=== PATIENT | male | born 1970 | race Caucasian/White ===

== ENCOUNTER → 2019-04-21 | Outpatient (CLI) | payer OTHER, SELFPAY ==
[2015-09-10 12:41] VITALS: BMI 29.9
[2019-04-21 10:50] LABS: Absolute Lymphocyte Count 1.79 X10^3/ul (0.83-4.51); Absolute Neutrophil Count 3.3 X10^3/uL (2.0-7.7); Basophil# 0.05 X10^3/uL; Basophil% 0.8 % (0-1); Eosinophils% 6.7 % (0-5); Hematocrit 43.8 % (40-54); Lymphocyte # 1.79 X10^3/ul (4.0); Mean Corp Hgb Conc 34.2 g/gl (32-36); Mean Corpuscular Hgb 29.1 pg (27.0-32.0); Mean Platelet Vol. 11.7 fl (6.2-12.0); Monocyte# 0.44 X10^3/uL; Monocyte% 7.4 % (0-10); Neutrophil # 3.27 X10^3/uL (2.7-7.7); Neutrophil % 54.9 % (47-70); Platelet Count 239 K/mm3 (150-450); RBC Distribution Width CV 13.5 % (11.6-14.6); RBC Distribution Width SD 41.7 fl (35.1-43.9); Red Blood Count 5.15 M/mm3 (4.6-6.2)
[2019-04-21 11:00] LABS: POSITIVE COUNT NO; POSITIVE DIFFERENTIAL NO; POSITIVE MORPHOLOGY NO
[2019-04-21 11:20] LABS: Hemoglobin A1c 6.7 % (4.2-6.3)
[2019-04-21 11:28] LABS: AST(SGOT) 29 U/L (15-37); Alanine Aminotransfer ALT/SGPT 32 U/L (16-61); Albumin, Serum 3.4 g/dL (3.2-5.0); Alkaline Phosphatase 83 U/L (45-117); Anion Gap 9 (5-15); BUN 17 mg/dL (7-18); Calcium,Total 8.8 mg/dL (8.5-10.1); Chloride 103 mmol/L (98-107); Cholesterol 163 mg/dL (200); Creatinine, Serum 0.95 mg/dL (0.70-1.30); EST Glomerular Filtration Rate 90 mL/min (>60); Est Glom Filt Rate - Afr Amer 109 mL/min (>60); Globulin 3.5 g/dL (2.2-4.2); Glucose 148 mg/dL (74-106); High Density Lipoprotein 47 mg/dL; Potassium 4.4 mmol/L (3.5-5.1); Protein, Total 6.9 g/dL (6.4-8.2); Sodium Level 140 mmol/L (136-145); Thyroid Stim Hormone (TSH) 3.04 uIU/mL (0.358-3.74); Triglycerides 58 mg/dL; Very Low Density Lipoprotein 12 mg/dL (5-40)
[2019-04-21 12:34] LABS: Microalbumin,Random Urine 9.3 mg/L (NO RANGE EST.)
== END | disposition home or self-care (01) ==
LOC: MFPLAB 08:55
PROVIDERS: Family Provider Family Medicine; PCP Family Medicine; Visit Provider Internal Medicine Endocrinology, Diabetes & Metabolism
DX: E10.65 Type 1 diabetes mellitus with hyperglycemia (principal)
CPT/HCPCS: 36415; 80053; 80061; 82043; 82570; 83036; 84443; 85025

== ENCOUNTER → 2019-09-01 11:35 | Outpatient (CLI) | payer OTHER, SELFPAY ==
[2015-09-10 12:41] VITALS: BMI 29.9
[2019-09-01 14:09] LABS: ALB/GLOB Ratio 1.2 RATIO (0.9-2.4); AST(SGOT) 42 U/L (15-37); Alanine Aminotransfer ALT/SGPT 47 U/L (16-61); Alkaline Phosphatase 89 U/L (45-117); Anion Gap 3 (5-15); BUN 21 mg/dL (7-18); Calcium,Total 9.3 mg/dL (8.5-10.1); Chloride 105 mmol/L (98-107); Cholesterol 154 mg/dL (200); Creatinine, Serum 0.95 mg/dL (0.70-1.30); EST Glomerular Filtration Rate 89 mL/min (>60); Est Glom Filt Rate - Afr Amer 108 mL/min (>60); Globulin 3.3 g/dL (2.2-4.2); Glucose 44 mg/dL (74-106); High Density Lipoprotein 57 mg/dL; Potassium 3.9 mmol/L (3.5-5.1); Protein, Total 7.3 g/dL (6.4-8.2); Sodium Level 139 mmol/L (136-145); Triglycerides 37 mg/dL; Very Low Density Lipoprotein 7 mg/dL (5-40)
== END ==
PROVIDERS: Family Provider Family Medicine; PCP Family Medicine; Referring Provider Internal Medicine Endocrinology, Diabetes & Metabolism; Visit Provider Internal Medicine Endocrinology, Diabetes & Metabolism
DX: E10.43 Type 1 diabetes mellitus with diabetic autonomic (poly)neuropathy (principal)
CPT/HCPCS: 36415; 80053; 80061; 83036

== ENCOUNTER → 2019-09-24 06:29 | Outpatient (CLI) | payer OTHER, SELFPAY ==
[2015-09-10 12:41] VITALS: BMI 29.9
--- NOTE | 2019-09-24 15:58 | NEURO ---
NCS and/or EMG Patient Report Ordering Doctor: Nazia Waters DATE OF SERVICE: 09/24/19 Reyes Zuñiga is a 49-year-old male presents for electrodiagnostic testing of the right upper limb. Reports numbness and tingling in the right hand. Next Electrodiagnostic findings: Right median motor nerve demonstrates normal distal latency, amplitude with borderline reduced conduction velocity. Normal right ulnar motor response. Borderline prolonged right median F-wave. Prolonged right median sensory latency at the wrist. Needle EMG, all muscles tested in the right upper limb showed no evidence of denervation with normal motor unit action potentials. Electrodiagnostic impression: This is an abnormal study in the right upper limb. 1. Electrodiagnostic findings demonstrate right-sided median mononeuropathy. This is consistent with a mild right carpal tunnel syndrome. If there are any further questions, please not hesitate contact me
== END ==
PROVIDERS: Family Provider Family Medicine; PCP Family Medicine; Referring Provider Nurse Practitioner Adult Health; Visit Provider Nurse Practitioner Adult Health
DX: R20.0 Anesthesia of skin (principal)
CPT/HCPCS: 95886; 95910

== ENCOUNTER → 2020-01-29 09:53 | Outpatient (CLI) | payer OTHER, SELFPAY ==
--- NOTE | 2020-01-29 09:55 | RAD_ITS ---
STUDY: X-RAY - RIGHT WRIST REASON FOR EXAM: Right wrist pain extending into forearm, finger tingling, no specific injury. TECHNIQUE: 3 view(s) of the wrist were obtained. COMPARISON: None. FINDINGS: Normal visualized distal radius and ulna. Normal radiocarpal articulation. Normal distal radioulnar articulation. Normal carpal bones. Normal carpal articulations. Normal carpometacarpal articulation of the thumb. Normal second through fifth carpometacarpal articulations. Normal visualized metacarpal bones. There is vascular calcification. RAD/Wrist min 3 Views IMPRESSION: Vascular calcification. Otherwise, unremarkable x-ray examination of the right wrist. Electronically Signed: Nathan Quiroz MD at 10:26 EDT Tel , Service support ,
== END ==
PROVIDERS: PCP Family Medicine; Referring Provider Orthopaedic Surgery; Visit Provider Orthopaedic Surgery
DX: M25.531 Pain in right wrist (principal)
CPT/HCPCS: 73110

== ENCOUNTER 2020-02-11 11:00 | Outpatient (RCR) | payer OTHER, SELFPAY ==
[2020-01-29 10:16] VITALS: BMI 29.9
--- NOTE | 2020-01-29 11:24 | HP.OTEVAL ---
Patient's Visit Information SHANE PALMER is a 49 year old M, referred to Occupational Therapy by Dr. Sabi Hays DO, with a diagnosis of BCTS. Date of Evaluation: 01/29/20 Occupational Therapist: Latanya Dodge, MANISHAR/Berkley, CHT - Subjective Subjective: This 49 year old male was seen for OT eval with dx of bilateral CTS. Pt states he noticed symptoms in Jul/Sep 2019. Pt did have nuropathy test due to DM, it was neg. and they recommened Ortho consult for CTS. pt states he works at [employer] and needs to lift 50-70# pt states he states he can feel a weakness in his right arm. pt had wrist cock up brace and was instructed to wear brace at night. - Pain right hand 2 Pain Intensity Range: 0, 4 - ROM Wrist: right 55/60 left 70/65 - Strength Human Performance Professor: right 90# left 85# Lateral Pinch: right 16# left 20# Tripod Pinch: right 18# left 18# - Sensation Thumb: right 2.83 left 2.83 Index: right 2.83 left 2.83 Middle: right 2.83 left 2.83 Ring: right 2.83 left 2.83 Little: right 2.83 left 2.83 - Quick DASH-Disab of Arm,Shoulder& Hand Quick DASH Score: 10.0000 - Carpal Tunnel Syndrome Total Score of Symptom & Functional Sections: 13 - Goals Goal:: pt will report pain no greater than 1/10 with use of right UE with ADLs and work tasks by d/c Goal:: Pt will demo understanding of work/lifting and carry ergonomics to decrease stress on tendons to increase pts independent with ADLs, IADLS and work tasks by d/c. Goal:: pt will report a decrease in ting/numb throughout med. nerve distribution to less than 3 times in a week by d/c. Goal:: pt will demo understanding of CTS and median nerve glides to decrease CTS by d/c - Rehabilitation General Assessment: pt demo with positive CTS and pain through 1st dorsal region of right wrist. Pt would benefit from skilled OT services 1x week for 4 weeks to decrease pts pain, ed. on median N. glides and lift ergo to decrease stress on median nerve and tendons. Today therapist ed. pt on median nerve glides, ice and to lift keeping wrist in nutral postion vs ulnar deviation. pt demo understanding and agree to POC. Rehabilitation Potential: Good - Anticipated Interventions Anticipated Interventions: Strengthening, Triggerpoint Release, Modalities, Joint Protection/Energy Conservation, Ergonomic Education, Home Program - Visit Plan Frequency: 1x/Week Duration: 4 Weeks TEXT: Thank you for the opportunity to evaluate your patient. For Medicare and Medicare HMO plans, please review the plan of care and approve it. It will need to be FAXED BACK to us at [phone] for Medicare purposes. Please let me know if there are questions or concerns regarding this plan of care. Physician Signature: Date:
--- NOTE | 2020-04-27 11:21 | HP.OTDCNRP_ITS ---
SHANE PALMER was seen in my office for initial evaluation on 01/29/20. The following Plan of Care was established for this patient: Initial Frequency: 1x/Week Initial Duration: 4 Weeks Plan: cont POC Anticipated Interventions: Strengthening, Triggerpoint Release, Modalities, Rosa int Protection/Energy Conservation, Ergonomic Education, Home Program This patient was last seen in our office 02/11/20. Pertinent comments regarding their Occupational therapy will appear below: pt seen for 2 OT visits- pt did not schedule further apts and is D/C At this point I will be discontinuing this patient from occupational therapy. I would be happy to see this patient again in the future if found appropriate by the physician. Thank you! Latanya Dodge, OTR/L, CHT
== END 2020-02-11 19:00 | disposition home or self-care (01) ==
LOC: OT 11:00
PROVIDERS: PCP Family Medicine; Referring Provider Orthopaedic Surgery; Visit Provider Orthopaedic Surgery
DX: G56.03 Carpal tunnel syndrome, bilateral upper limbs (principal)
CPT/HCPCS: 97035; 97166; 97530

== ENCOUNTER 2020-04-12 18:23 | Emergency (ER) | payer OTHER, SELFPAY ==
[2020-01-29 10:16] VITALS: BMI 29.9
--- NOTE | 2020-04-12 18:40 | ED.RN ---
pt arrived to ed with concerns for hypoglycemia. hx of type 1 diabetes. pt had an insulin pump with blood glucose sensor. during triage pt notice and upwards trend in his blood glucose level. at this time patient decided to not seek treatment and expressed comfort with controlling his glucose level on his own at home. pt was informed that we would be gland to give him peace of mind by staying for evaluation, but decline. he ambulated from department with no difficulty. pt was drinking a soda during his time in ed. pt stated he was walking to his parent's house to wait for his to pick him up. no s/s of distress. pt alert and oriented x4 and demonstrated appropriate decision making abilities. balance and gait appropriate. michelle toledo rn [phone]
[2020-04-12 18:49] VITALS: TEMP 37; BMI 20.4
== END 2020-04-12 18:53 | disposition home or self-care (01) ==
LOC: ED 18:40
PROVIDERS: Emergency Provider Emergency Medicine; PCP Family Medicine
DX: Z53.21 Procedure and treatment not carried out due to patient leaving prior to being seen by health care provider (principal)

== ENCOUNTER 2020-04-29 18:02 | Emergency (ER) | payer OTHER, SELFPAY ==
[2020-04-29 18:07] VITALS: BP 146/82; PULSE 66; RESP 16; TEMP 36.9; O2SAT 98; BMI 27.4
--- NOTE | 2020-04-29 18:23 | ED.VIS.GEN ---
History of Present Illness Chief Complaint: Hypoglycemia Detail of Chief Complaint: Altered mental status and concern for allergic reaction Informant: Patient, Significant Other Onset: Today, Hours Context: Sudden Onset Timing: Intermittent Quality: Blood sugar less than 40 Location: Residence Current Severity: - Maximum Severity: Severe Worsened by: Increased activity with poor p.o. consider intake Relieved by: Trinity, milk, glucose stat x2 Associated Symptoms: Unresponsiveness with gurgling Narrative: Patient is a type I diabetic with insulin pump. He has been working outside. He was cleaning the garage. He collapsed. Insulin pump red blood sugar less than 40. was concerned for allergic reaction because he was gurgling. There was no hives. There was no swelling of his lips or tongue. He admits to not eating well. He tried to snack. He did not want to stop what he was doing. Prior similar symptoms: Yes Recent Illness/Hospitalization: No - Past Medical History (1) Type 1 diabetes mellitus Status: Acute Past Medical History - Allergies and Home Meds Allergies/Adverse Reactions: Allergies nut - unspecified [nut] Allergy (Verified 04/29/20 18:05) Anaphylaxis promethazine HCl [From Phenergan] Adverse Reaction (Verified 04/29/20 18:05) Other Primary Care Physician: Yessi Cuevas MD [Primary Care Provider] - Prior records reviewed: Yes Surgical History: noncontributory Lives: Spouse/ Significant Other Smoking Status: Never smoker Alcohol: None Drugs: None Review of Systems General: Denies: Fever, Malaise Eyes: Denies: Visual changes - bilaterally, Blurred Vision - bilaterally Cardiovascular: Denies: Chest pain, Palpitations Respiratory: Denies: Dyspnea, Cough Gastrointestinal: Denies: Nausea, Vomiting Musculoskeletal: Denies: Myalgias, Arthralgias, Neck pain, Back pain, Swelling, Extremity Pain, -, - Neurological: Denies: Headache, Weakness, Parasthesia Endocrine: Denies: Polyuria, Polydipsia Hematologic: Denies: Easy bruising, Easy bleeding Allergy: Denies: Uticaria, Swelling of the mouth Physical Exam Vital Signs/Narrative: Vital Signs Temp Pulse Resp BP Pulse Ox 04/29/20 18:07 98.5 F 66 16 146/82 H 98 Inital Vital Signs reviewed: Yes General: Well nourished, Well developed Head: Normocephalic, Atraumatic Eyes: Perrl, EOMI. Negative for: Pale conjunctiva, Scleral icterus ENT: Moist mucous membranes, No rhinorrhea Neck: Supple, Nontender, No lymphadenopathy, No JVD Cardiovascular: Regular rate, Regular rhythm, No murmurs, Normal S1, Normal S2 Respiratory: No distress, CTA bilaterally Abdomen: Soft, Nontender Extremities: Nontender, No edema Skin: Normal color, No rash, No Trauma Neurological: Alert, Oriented x3, Cranial nerves II-XII grossly intact, Normal Strength, Normal Sensation Psychological: Normal affect Diagnostic/Tx/Re-eval - Medical Decision Making Patient's altered mental status was due to hypoglycemia due to poor p.o. intake. He has been fed. He ate a sandwich, 2 pieces of string cheese, container of milk and 2 glucose that tubes. Will reassess in 30 minutes. Patient was reassessed at 1855. He is alert oriented. Blood sugar is above 90. Plan is to discharge to home with appropriate home-going instructions. ED Disposition - Plan for ED Patient: Disposition: Home or Assisted Living Diagnosis: Hypoglycemia due to type 1 diabetes mellitus Instructions: ED HYPOGLYCEMIA Insulin Rxn Referrals: Yessi Cuevas MD [Primary Care Provider] - As Needed
[2020-04-29 19:04] VITALS: BP 124/80; PULSE 88; RESP 16; O2SAT 98
== END 2020-04-29 19:06 | disposition home or self-care (01) ==
PROVIDERS: Emergency Provider Emergency Medicine; PCP Family Medicine
DX: E10.649 Type 1 diabetes mellitus with hypoglycemia without coma (principal); Z79.4 Long term (current) use of insulin; Z96.41 Presence of insulin pump (external) (internal)
CPT/HCPCS: 99284

== ENCOUNTER → 2020-06-28 10:39 | Outpatient (CLI) | payer OTHER, SELFPAY | PROVIDERS: PCP Family Medicine; Visit Provider Family Medicine | DX: Z00.00 Encounter for general adult medical examination without abnormal findings (principal) ==

== ENCOUNTER → 2020-07-05 10:34 | Outpatient (CLI) | payer OTHER, SELFPAY ==
[2020-07-05 12:21] LABS: Absolute Lymphocyte Count 2.17 X10^3/uL (0.83-4.51); Absolute Neutrophil Count 3.3 X10^3/uL (2.0-7.7); Basophil# 0.07 X10^3/uL; Eosinophil# 0.69 X10^3/uL; Eosinophils% 10.2 % (0-5); Hematocrit 45.8 % (40-54); Hemoglobin 15.3 g/dL (13.0-16.5); Lymphocyte # 2.17 X10^3/ul (4.0); Lymphocyte % 32.2 % (19-41); Mean Corp Hgb Conc 33.4 g/dL (32-36); Mean Corpuscular Volume 89.8 fL (80-94); Mean Platelet Vol. 11.5 fl (6.2-12.0); Monocyte# 0.47 X10^3/uL; NRBC Flagged by Analyzer 0 % (0-5); Neutrophil # 3.31 X10^3/uL (2.7-7.7); Neutrophil % 49.2 % (47-70); Platelet Count 224 K/mm3 (150-450); RBC Distribution Width CV 13.1 % (11.6-14.6); RBC Distribution Width SD 43.1 fl (35.1-43.9); White Blood Count 6.7 K/mm3 (4.4-11.0)
[2020-07-05 12:44] LABS: AST(SGOT) 29 U/L (15-37); Alanine Aminotransfer ALT/SGPT 39 U/L (16-61); Albumin, Serum 3.4 g/dL (3.2-5.0); Alkaline Phosphatase 83 U/L (45-117); Anion Gap 2 (5-15); BUN 16 mg/dL (7-18); Calcium,Total 8.7 mg/dL (8.5-10.1); Chloride 105 mmol/L (98-107); Cholesterol 181 mg/dL (200); EST Glomerular Filtration Rate 84 mL/min (>60); Est Glom Filt Rate - Afr Amer 102 mL/min (>60); Globulin 3.4 g/dL (2.2-4.2); Glucose 105 mg/dL (74-106); High Density Lipoprotein 55 mg/dL; Potassium 4.4 mmol/L (3.5-5.1); Protein, Total 6.8 g/dL (6.4-8.2); Sodium Level 140 mmol/L (136-145); T4 Free Direct 1.14 ng/dL (0.76-1.46); Thyroid Stim Hormone (TSH) 6.54 uIU/mL (0.358-3.74); Triglycerides 52 mg/dL; Very Low Density Lipoprotein 10 mg/dL (5-40)
[2020-07-05 12:47] LABS: Hemoglobin A1c 6.8 % (3.8-5.6)
[2020-07-05 13:03] LABS: Microalbumin,Random Urine < 5.0 mg/L (NO RANGE EST.)
== END ==
PROVIDERS: PCP Family Medicine; Referring Provider Family Medicine
DX: E10.43 Type 1 diabetes mellitus with diabetic autonomic (poly)neuropathy (principal)
CPT/HCPCS: 36415; 80053; 80061; 82043; 82570; 83036; 84439; 84443; 85025

== ENCOUNTER → 2020-10-07 15:52 | Outpatient (CLI) | payer OTHER, SELFPAY | PROVIDERS: PCP Family Medicine; Visit Provider Family Medicine | DX: U07.1 COVID-19 (principal) | CPT/HCPCS: 87635; U0003 ==

== ENCOUNTER → 2020-11-02 11:17 | Outpatient (CLI) | payer OTHER, SELFPAY ==
[2020-11-02 15:45] LABS: Hemoglobin A1c 6.4 % (3.8-5.6)
[2020-11-02 15:52] LABS: ALB/GLOB Ratio 1.1 RATIO (0.9-2.4); AST(SGOT) 27 U/L (15-37); Alanine Aminotransfer ALT/SGPT 36 U/L (16-61); Albumin, Serum 3.7 g/dL (3.2-5.0); Alkaline Phosphatase 82 U/L (45-117); Anion Gap 7 (5-15); BUN 18 mg/dL (7-18); BUN/Creat Ratio 18.8 RATIO (10-20); Chloride 106 mmol/L (98-107); Cholesterol 121 mg/dL (200); Creatinine, Serum 0.96 mg/dL (0.70-1.30); EST Glomerular Filtration Rate 89 mL/min (>60); Est Glom Filt Rate - Afr Amer 107 mL/min (>60); Globulin 3.5 g/dL (2.2-4.2); Glucose 74 mg/dL (74-106); High Density Lipoprotein 52 mg/dL; Potassium 3.8 mmol/L (3.5-5.1); Protein, Total 7.2 g/dL (6.4-8.2); Sodium Level 142 mmol/L (136-145); T4 Free Direct 1.38 ng/dL (0.76-1.46); Thyroid Stim Hormone (TSH) 4.11 uIU/mL (0.358-3.74); Triglycerides 51 mg/dL; Very Low Density Lipoprotein 10 mg/dL (5-40)
== END ==
PROVIDERS: PCP Family Medicine; Referring Provider Internal Medicine Endocrinology, Diabetes & Metabolism; Visit Provider Internal Medicine Endocrinology, Diabetes & Metabolism
DX: E10.43 Type 1 diabetes mellitus with diabetic autonomic (poly)neuropathy (principal)
CPT/HCPCS: 36415; 80053; 80061; 83036; 84439; 84443

== ENCOUNTER 2021-01-19 10:00 | Outpatient (RCR) | payer OTHER, SELFPAY ==
--- NOTE | 2020-12-20 13:33 | HP.PTEVAL ---
Patient's Visit Information SHANE PALMER is a 50 year old M referred to Physical Therapy by Dr. Yessi Cuevas MD with a diagnosis of left shoulder pain. Date of Evaluation: 12/20/20 Physical Therapist: Daniela Casillas DPT - Visit Plan Frequency: 2x /Week Duration: 4 Weeks Plan: Focus on posture and scapular s/s. IE: HEP: scapualr retractions, posture, standing pect stretch, mid-row with GTB, bilateral ER with GTB - Subjective Type 1 diabetic- 5-7ys ago. was atheltic (volleyball,softball)- R shoulder is always gettting use but once stopped got frozen shoulder in R shoudler and came here for rehab. September had covid- laying in bed trying to get off had pain back on L shoulder- thought it was ache from covid. as gone as has gotten worse- last 2 weeks worse- reach back with work. pain: right now dont feel it in back of arm (triceps and shoulder joint), shoudler 1/10, burning, does not radiate, no numbness or tingling. better: nothing. worse: reach back, lean on it 4/10. sleep: no problem. 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 R handed - Objective Posture: FH, RS, able to correct with cues but unble to maintain. Palpation: no c/o pain. ROM: Cervical: WFL in all planes- Shoulder: pain flexion, abduction, ER but all WFL elbow/wrist: all planes WFL. strength: elbow flex/ext: 4+/5 shoulder: L flex/ext/abd/ER/IR: 4/5 R flex/ext/abd/ER/IR 4+/5 scap: fair minus. special tests: lanieer +, kaleigh elliott +. pt education for thumb up functional mobility tasks in order to promote proper body mechanics through shoulder joint. - Goals Goal 1:: Patient will perform I HEP and progression Goal Time Frame: 2-4 Weeks Goal 2:: Patient will maintain proper posture for an entire treatment session in order to improve body mechcanics and demo increased scap s/s. Goal Time Frame: 2-4 Weeks Goal 3:: Patient will report decrease in pain to 0/10 for 1 week in order to perform functional mobility tasks Goal Time Frame: 4-6 Weeks - Rehabilitation Potential Physical Therapy Diagnosis: Pt presents with decrease strength, flexibilty, and pain free ROM impacting abiltiy to perform functional mobiltiy tasks. Rehabilitation Potential: Good - Anticipated Interventions Patient/Client Instruction: Educate patient on: Plan of Care For the Purpose of:: To improve muscle performance and motor function Therapeutic Exercise to Include: Strength training, Power training, Endurance training, Coordination, Body mechanics, Postural training, Flexibilty training, Scapular Strength/Stabilization For the Purpose of:: To improve performance and independence with ADL's Cryotherapy (ice pack, ice massage): Yes Thermo therapy (hot pack): Yes Thank you for the opportunity to evaluate your patient. For Medicare and Medicare HMO plans, please review the plan of care and approve it. It will need to be FAXED BACK to us at [phone] for Medicare purposes. For Medicare only, by signing this I certify the plan of care. Please let me know if there are questions or concerns regarding this plan of care. Physician Signature: Date:
--- NOTE | 2021-01-19 10:48 | HP.PTDCSUM ---
It has been my pleasure to treat SHANE PALMER referred by Dr. Yessi Cuevas MD, with the diagnosis of left shoulder pain for a total of 8 visit(s). Discharge Date: Please see the following information for a summary of their discharge status. Subjective: Pt reports that he is doing not too bad. Pt reports that shoulder isnt stopping him from doing anything anymore but will feel it sometimes. Pt can feel twing if he has to put self in position but does not have to very often. abd/ext rapidly can cause some twing. Pt reports not pain down arm and only in shoulder % Improvement: 80 Objective/Function: Posture: FH, RS, able to correct with cues but unble to maintain. Palpation: no c/o pain. ROM: Cervical: WFL in all planes- Shoulder: no pain flexion, abduction, ER but all WFL. functinal IR: mid back,elbow/wrist: all planes WFL. strength: elbow flex/ext: 5/5 shoulder: L flex/ext/abd/ER/IR: 4+/5 R flex/ext/abd/ER/IR 4+/5 scap: fair Goal 1:: Patient will perform I HEP and progression Goal Progress: Goal Met Goal 2:: Patient will maintain proper posture for an entire treatment session in order to improve body mechcanics and demo increased scap s/s. Goal Progress: Progressing Goal 3:: Patient will report decrease in pain to 0/10 for 1 week in order to perform functional mobility tasks Goal Progress: Goal Met Plan: Pt to be d/t with I HEP, pt is encrouaged to contact with questions and concerns. I HEP: Large Wall Circles: 1# 2x10 ea. CW/CCW. Prone Bilat Shld Flex, Ext, Horiz Abd: 1# 2x10 ea. Dolphin Push Up: 2x10. Standing Pec Stretch (in corner): 3x30 sec. Supine Ts/Diagonals: YTB 2x10 If there are questions or concerns regarding this patient's physical therapy, please feel free to call me at [phone]. Thank you for the referral of this patient. Sincerely, Daniela Casillas DPT
== END 2021-01-19 10:50 | disposition home or self-care (01) ==
LOC: PT 10:00
PROVIDERS: PCP Family Medicine; Visit Provider Family Medicine
DX: M25.512 Pain in left shoulder (principal)
CPT/HCPCS: 97110; 97162; 97164; 97530

== ENCOUNTER → 2021-10-07 | Outpatient (CLI) | payer OTHER, SELFPAY | END | disposition home or self-care (01) | LOC: LABSPEC 09:24 | PROVIDERS: PCP Family Medicine; Visit Provider Family Medicine | DX: B34.9 Viral infection, unspecified (principal) | CPT/HCPCS: 87635; U0005; U0003 ==

== ENCOUNTER 2022-02-07 07:43 | Outpatient (CLI) | payer OTHER, SELFPAY ==
[2022-02-07 10:01] LABS: Hemoglobin A1c 6.7 % (3.8-5.6)
== END 2022-02-07 23:59 | disposition home or self-care (01) ==
LOC: MTLAB 07:43
PROVIDERS: PCP Family Medicine; Referring Provider Internal Medicine Endocrinology, Diabetes & Metabolism; Visit Provider Internal Medicine Endocrinology, Diabetes & Metabolism
DX: E10.43 Type 1 diabetes mellitus with diabetic autonomic (poly)neuropathy (principal)
CPT/HCPCS: 36415; 83036

== ENCOUNTER 2022-02-17 00:36 | Emergency (ER) | payer OTHER, SELFPAY ==
[2022-02-17 00:37] VITALS: BP 143/86; PULSE 77; RESP 97; TEMP 36.6; O2SAT 98; BMI 28.9
[2022-02-17 00:51] LABS: Bedside Glucose 73 mg/dL (74-106)
[2022-02-17] MEDS: Ondansetron 4 MG/2 ML Vial IV (00:59)
[2022-02-17 01:05] LABS: Absolute Lymphocyte Count 1.73 X10^3/uL (0.83-4.51); Absolute Neutrophil Count 12.1 X10^3/uL (2.0-7.7); Basophil# 0.06 X10^3/uL; Basophil% 0.4 % (0-1); Eosinophil# 0.47 X10^3/uL; Eosinophils% 3.1 % (0-5); Hematocrit 46.8 % (40-54); Hemoglobin 16.2 g/dL (13.0-16.5); Lymphocyte # 1.73 X10^3/ul (0.83-4.51); Lymphocyte % 11.3 % (19-41); Mean Corp Hgb Conc 34.6 g/dL (32-36); Mean Corpuscular Hgb 29.8 pg (27.0-32.0); Mean Platelet Vol. 10.5 fl (6.2-12.0); Monocyte# 0.86 X10^3/uL; Monocyte% 5.6 % (0-10); NRBC Flagged by Analyzer 0 % (0-5); Neutrophil # 12.09 X10^3/uL (2.7-7.7); Neutrophil % 79.3 % (47-70); Platelet Count 287 K/mm3 (150-450); RBC Distribution Width SD 40.3 fl (35.1-43.9); Red Blood Count 5.44 M/mm3 (4.6-6.2); White Blood Count 15.3 K/mm3 (4.4-11.0)
[2022-02-17 01:22] LABS: AST(SGOT) 41 U/L (15-37); Alanine Aminotransfer ALT/SGPT 43 U/L (16-61); Alkaline Phosphatase 86 U/L (45-117); Anion Gap 6 (5-15); BUN 19 mg/dL (7-18); BUN/Creat Ratio 17.4 RATIO (10-20); Bilirubin, Direct 0.13 mg/dL (0.00-0.30); Calcium,Total 9.3 mg/dL (8.5-10.1); Chloride 104 mmol/L (98-107); Creatinine, Serum 1.09 mg/dL (0.70-1.30); EST Glomerular Filtration Rate 76 mL/min (>60); Est Glom Filt Rate - Afr Amer 92 mL/min (>60); Estimated Creatinine Clearance 86.35 ml/min; Globulin 3.5 g/dL (2.2-4.2); Glucose 68 mg/dL (74-106); Lipase 66 U/L (73-393); Potassium 3.6 mmol/L (3.5-5.1); Protein, Total 7.5 g/dL (6.4-8.2); Sodium Level 139 mmol/L (136-145)
--- NOTE | 2022-02-17 02:12 | EX.ED.DYSGE1 ---
HPI History of Present Illness Chief Complaint: Nausea/Vomiting Narrative Narrative: Patient is a 51-year-old male who is type I diabetic currently on insulin pump. He states his blood sugars typically run low. He states that this evening his blood sugar began running low so his pump did not provide any type of basal insulin. He states that he believes he bolused his insulin correctly at dinner and states he did not take any excessive insulin or any other medications to control sugar. He states he noticed his blood sugar was dropping low and therefore tried to drink a Pepsi. He states after doing this he had 1 bout of vomiting. He states that he was concerned because his blood sugar is running low and now that he had a bout of emesis he did not know how he was going to bring it back up and therefore called EMS to bring him in for evaluation. PFSH PFS Home Medications epinephrine 0.3 mg IM X1 #2 syringe 08/26/15 [Rx Last Taken Unknown] flash glucose scanning reader #1 ea 12/10/17 [Rx Last Taken Unknown] flash glucose sensor #3 ea 12/10/17 [Rx Last Taken Unknown] insulin aspart U-100 100 unit/mL subcutaneous solution See Rx Instructions SC DAILY ml 01/29/20 [History Last Taken Unknown] duloxetine 60 mg PO DAILY 04/29/20 [History Last Taken Unknown] aspirin 81 mg PO DAILY 02/17/22 [History Last Taken Unknown] atorvastatin 20 mg PO QHS 02/17/22 [History Last Taken Unknown] dicyclomine 20 mg PO 4X/DAY PRN PRN #28 tab 02/17/22 [Rx Last Taken Unknown] ondansetron 4 mg PO TID PRN #21 tab 02/17/22 [Rx Last Taken Unknown] theophylline [Christiano-24] 300 mg PO DAILY 02/17/22 [History Last Taken Unknown] Allergy/AdvReac Type Severity Reaction Status Date / Time nut - unspecified [nut] Allergy Anaphylaxis Verified 02/17/22 00:37 promethazine HCl AdvReac Other Verified 02/17/22 00:37 [From Phenergan] Social History (Updated 01/30/20 @ 09:[address] Sabi Hays, ) Smoking Status: Never smoker ROS ROS ED Constitutional Constitutional ED: Denies chills or fever(s) ENT ENT ED: Denies sore throat Cardiovascular Cardiovascular: Denies chest pain Respiratory/Chest Respiratory/Chest: Denies cough or dyspnea Gastrointestinal Gastrointestinal: Reports nausea and vomiting; Denies abdominal pain or diarrhea Genitourinary Genitourinary ED: Denies dysuria Musculoskeletal Musculoskeletal: Denies myalgias Integumentary Denies rash Neurologic Neurologic: Denies headache(s) Hematologic/Lymphatic Hematologic/Lymphatic: Denies easy bleeding or easy bruising EXAM Physical Exam Const Vital Signs: 02/17/22 00:37 Temperature 98 F Temperature Source Temporal Pulse Rate 77 Respiratory Rate 97 H Blood Pressure 143/86 H Blood Pressure Mean 105 Pulse Ox 98 Oxygen Delivery Method Room Air Positive well nourished and well developed General Appearance ED: well developed HEENT Reports moist mucous membranes Eyes PERRL and EOMs intact bilaterally Neck supple Resp normal respiratory effort and clear to auscultation bilaterally Cardio regular rate and regular rhythm GI normal to inspection, nondistended, normoactive bowel sounds, non-tender, non-distended and no masses GI Narrative: No voluntary guarding no rigidity no pulsatile mass or fluid wave Auscultation: normoactive bowel sounds Palpation: soft Extremity normal to inspection Neuro oriented x3 and CN's II-XII intact bilaterally Sensorium / Orientation: alert Motor Exam: strength 5/5 throughout Psych mental status grossly normal Skin no rashes or lesions noted MDM MDM MDM Narrative Medical decision making narrative: Patient presented to the ER awake and alert with stable vitals and a soft nonsurgical abdomen. His glucose was starting to elevate but had been as low as approximately 45 at home. He denied any excessive bolus or extra medication to help reduce his sugar. Clinically with generalized upset stomach about the vomiting and then he reported loose stool in the ER he is consistent with a viral stomach infection. His lab work revealed no clinically significant findings other than a elevated white count at 15.3 without left shift. Sugar was just slightly low at 68. We discussed the possible CT scan because of the leukocytosis but without fever and no pain on palpation I did not feel it was absolutely necessary to perform a CT of his abdomen pelvis at this time. Patient was given dextrose and Zofran. He was watched in the ER and had no further bouts of vomiting and his sugar remained at approximately 170. Patient was also able to drink without any bouts of vomiting. Therefore at this time I do not feel there is need for further evaluation as the patient has been able to tolerate oral fluids his sugar has remained normal and vitals stable. Therefore he will be prescribed symptomatic medications and is otherwise safe for discharge Lab Data Attestation: I reviewed the patient's lab results. Labs: Laboratory Results - last 24 hr 02/17/22 02/17/22 02/17/22 00:45 00:58 00:58 WBC 15.3 H RBC 5.44 Hgb 16.2 Hct 46.8 MCV 86.0 MCH 29.8 MCHC 34.6 RDW Std Deviation 40.3 RDW Coeff of Jose Antonio 13.0 Plt Count 287 MPV 10.5 Immature Gran % (Auto) 0.300 Neut % (Auto) 79.3 H Lymph % (Auto) 11.3 L Sandoval % (Auto) 5.6 Eos % (Auto) 3.1 Baso % (Auto) 0.4 Absolute Neuts (auto) 12.1 H Absolute Lymphs (auto) 1.73 Nucleated RBC % 0 Sodium 139 Potassium 3.6 Chloride 104 Carbon Dioxide 29.0 Anion Gap 6 BUN 19 H Creatinine 1.09 Estim Creat Clear Calc 86.35 Est GFR (MDRD) Af Amer 92 Est GFR (MDRD) Non-Af 76 BUN/Creatinine Ratio 17.4 Glucose 68 L Calcium 9.3 Total Bilirubin 0.60 Direct Bilirubin 0.13 AST 41 H ALT 43 Alkaline Phosphatase 86 Total Protein 7.5 Albumin 4.0 Globulin 3.5 Lipase 66 L POC Glucose 73 L Discharge Plan Triage Chief Complaint: Nausea/Vomiting ED Provider: Marvin Rosales Dx/Rx/DC Orders Clinical Impression: Nausea & vomiting, Hypoglycemia, Type 1 diabetes mellitus Instructions: Hypoglycemia (Low Blood Sugar), ED Gastroenteritis, Viral (Adult) Prescriptions: New ondansetron 4 mg tablet,disintegrating 4 mg PO TID PRN (Reason: nausea and vomiting) Qty: 21 RF: 0 dicyclomine 20 mg tablet 20 mg PO 4X/DAY PRN PRN (Reason: Abdominal pain/spasm) Qty: 28 RF: 0 No Action insulin aspart U-100 100 unit/mL solution See Rx Instructions SC DAILY RF: 0 epinephrine 0.3 MG syringe 0.3 mg IM X1 Qty: 2 RF: 0 duloxetine 60 MG capsule 60 mg PO DAILY RF: 0 atorvastatin 20 mg tablet 20 mg PO QHS RF: 0 Christiano-24 300 mg capsule,extended release 24hr 300 mg PO DAILY RF: 0 aspirin 81 mg Capsule 81 mg PO DAILY RF: 0 (DME) flash glucose sensor [FreeStyle Bella 10 Day Sensor] kit See Dose Instructions .ROUTE .MEDSUPPLY Qty: 3 RF: 11 (DME) flash glucose scanning reader [FreeStyle Bella 10 Day [place]] misc See Dose Instructions .ROUTE .MEDSUPPLY Qty: 1 RF: 0 Stand Alone Forms: ED Work / School Excuse Primary Care Provider: Yessi Cuevas Referrals: Yessi Cuevas MD [Primary Care Provider] - Disposition Disposition: Home, Self Care
[2022-02-17 03:12] VITALS: RESP 16
== END 2022-02-17 03:13 | disposition home or self-care (01) ==
PROVIDERS: Emergency Provider Emergency Medicine; PCP Family Medicine; Visit Provider Emergency Medicine
DX: E10.649 Type 1 diabetes mellitus with hypoglycemia without coma (principal); Z79.4 Long term (current) use of insulin; R11.2 Nausea with vomiting, unspecified; Z96.41 Presence of insulin pump (external) (internal); Z79.82 Long term (current) use of aspirin; Z79.899 Other long term (current) drug therapy
CPT/HCPCS: 80048; 80076; 82962; 83690; 85025; 96374; 99285; A4216; J2405

== ENCOUNTER → 2022-03-01 08:26 | Outpatient (CLI) | payer OTHER, SELFPAY ==
[2022-03-01 12:57] LABS: T4 Free Direct 1.04 ng/dL (0.76-1.46); Thyroid Stim Hormone (TSH) 2.58 uIU/mL (0.358-3.74)
== END ==
PROVIDERS: PCP Family Medicine
DX: E10.43 Type 1 diabetes mellitus with diabetic autonomic (poly)neuropathy (principal); K31.84 Gastroparesis
CPT/HCPCS: 36415; 84439; 84443

== ENCOUNTER → 2022-05-23 | Outpatient (CLI) | payer OTHER, SELFPAY | END | disposition home or self-care (01) | PROVIDERS: PCP Family Medicine; Visit Provider Family Medicine | DX: U07.1 COVID-19 (principal) | CPT/HCPCS: 87635; U0003; U0005 ==

== ENCOUNTER → 2022-09-07 | Outpatient (CLI) | payer OTHER, SELFPAY ==
[2022-09-07 10:32] LABS: Absolute Lymphocyte Count 2.16 X10^3/uL (0.83-4.51); Absolute Neutrophil Count 3.4 X10^3/uL (2.0-7.7); Basophil# 0.05 X10^3/uL; Basophil% 0.8 % (0-1); Eosinophil# 0.25 X10^3/uL; Eosinophils% 3.9 % (0-5); Hematocrit 45.4 % (40-54); Hemoglobin 15.8 g/dL (13.0-16.5); Lymphocyte # 2.16 X10^3/ul (0.83-4.51); Lymphocyte % 33.6 % (19-41); Mean Corp Hgb Conc 34.8 g/dL (32-36); Mean Corpuscular Volume 89.2 fL (80-94); Mean Platelet Vol. 10.8 fl (6.2-12.0); Monocyte% 7.8 % (0-10); NRBC Flagged by Analyzer 0 % (0-5); Neutrophil # 3.44 X10^3/uL (2.7-7.7); Neutrophil % 53.6 % (47-70); Platelet Count 244 K/mm3 (150-450); RBC Distribution Width CV 13.7 % (11.6-14.6); Red Blood Count 5.09 M/mm3 (4.6-6.2); White Blood Count 6.4 K/mm3 (4.4-11.0)
[2022-09-07 10:53] LABS: Microalbumin,Random Urine 19.3 mg/L (NO RANGE EST.); Microalbumin:Creatinine Ratio 9.6 mg/g CRE (<30 mg/g CRE)
[2022-09-07 10:56] LABS: ALB/GLOB Ratio 0.9 RATIO (0.9-2.4); AST(SGOT) 37 U/L (15-37); Alanine Aminotransfer ALT/SGPT 46 U/L (16-61); Albumin, Serum 3.4 g/dL (3.2-5.0); Alkaline Phosphatase 72 U/L (45-117); Anion Gap 5 (5-15); BUN 18 mg/dL (7-18); Calcium,Total 9.4 mg/dL (8.5-10.1); Chloride 108 mmol/L (98-107); Cholesterol 141 mg/dL (200); EST Glomerular Filtration Rate 84 mL/min (>60); Est Glom Filt Rate - Afr Amer 101 mL/min (>60); Globulin 3.6 g/dL (2.2-4.2); Glucose 98 mg/dL (74-106); High Density Lipoprotein 73 mg/dL; Potassium 4.3 mmol/L (3.5-5.1); Sodium Level 142 mmol/L (136-145); T4 Free Direct 1.08 ng/dL (0.76-1.46); Thyroid Stim Hormone (TSH) 3.86 uIU/mL (0.358-3.74); Triglycerides 39 mg/dL; Very Low Density Lipoprotein 8 mg/dL (5-40)
[2022-09-07 10:58] LABS: Hemoglobin A1c 6.4 % (3.8-5.6)
== END | disposition home or self-care (01) ==
PROVIDERS: PCP Family Medicine
DX: E10.43 Type 1 diabetes mellitus with diabetic autonomic (poly)neuropathy (principal)
CPT/HCPCS: 36415; 80053; 80061; 82043; 82570; 83036; 84439; 84443; 85025

== ENCOUNTER 2022-10-26 14:30 | Outpatient (RCR) | payer OTHER, SELFPAY ==
--- NOTE | 2022-05-03 09:47 | HP.PTEVAL_ITS ---
Patient's Visit Information SHANE PALMER is a 52 year old M referred to Physical Therapy by Dr. Yessi Cuevas MD with a diagnosis of L shoulder pain. Date of Evaluation: 04/26/22 Physical Therapist: Carlin Holloway DPT - Visit Plan Frequency: 2-3x /Week Duration: 6 Weeks Plan: Start with joint mobs throughout L shoulder (all directions), progress HEP for stretching. Add in scapular strengthening as well. - Subjective Pt. is here today for his initial evaluation with L shoulder pain. He reports having symptoms for a few months now. He had been doing some exercises, but stopped doing them. He reports having increased pain with reaching, anything over head and with lifting. He is fine with movements in mid range. He denies mech of injury, but is diabetic. 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 No N/T noted. Pt. reports pain at lateral aspect of his shoulder into his biceps region at times. He is hopeful to reduce his symptoms and increase his ROM in order to to complete all recreational and work activities without limitations. - Pain L shoulder Pain Intensity (Out of 10): 1 Pain Intensity Range: 0, 5 - Objective POSTURE: Pt. has L shoulder in slight forward positioning. Pt. has normal shoulder heights noted. PALPAITON: pt. has tenderness along bicep and anterior shoulder. NEURO: Pt. has normal sensation and normal DTR of BUEs. ROM: R shoulder full ROM without increase in symptoms. L shoulder: AROM: flexion 135deg increase NW, abd 125deg increase NW, functional ER C3 increase NW, functional IR L5 increase NW. PROM: flexion 155deg, abd 140deg, ER at 90deg 70deg, IR at 90deg 40deg. MMT: RUE: 5/5 throughout. L elbow 5/5 throughout; L shoulder: flexion 5- /5 increase NW, and 5-/5 increase NW, ext 5/5, ER 5-/5 increase NW, IR 5/5 NE. - Special Tests L Shoulder External Rotation Lag Test - RC Tear: Negative L Shoulder Lift Off Test - Subscapular Tear: Negative L Shoulder Drop Sign - IS Test: Negative L Shoulder Empty Can - SS: Positive L Shoulder Belly Press - SupScap: Negative L Shoulder Neer - Impingement: Positive L Shoulder Tripp Nando - Impingement: Positive L Shoulder Biceps Load Test - Labrum: Negative L Shoulder Speeds Test - Labrum/Biceps: Positive - Balance/Special Test Scores Quick DASH Score: 25.0000 - Goals Goal 1:: LTG: Pt. to be I with HEP. Goal Time Frame: 4-6 Weeks Goal 2:: STG: Pt. to have increased PROM of L shoulder equal to R side. Goal Time Frame: 2 Weeks Goal 3:: LTG: Pt. to have increased AROM of L shoulder equal to R side. Goal Time Frame: 4-6 Weeks Goal 4:: LTG: pt. to have full symmetrical strength of L shoulder compared to R side. Goal Time Frame: 4-6 Weeks Goal 5:: LTG: pt. to complete all work and recreational activities without increase in symptoms. Goal Time Frame: 4-6 Weeks - Rehabilitation Potential Physical Therapy Diagnosis: Pt. has signs and symptoms consistent with L shoulder pain. Pt. has marked hypomobility and increased soreness with approaching end ranges of OH movements. He has what appears to be impingement syndrome, but I would suggest this is occurring due to a tight capsule of the GH joint. Shane would benefit from PT to increase his overall GH mobility allowing for better arthro kinematics and overall ROM. Rehabilitation Potential: Excellent - Anticipated Interventions Patient/Client Instruction: Educate patient on: Condition, Plan of Care, Risk Factors, Benefits of Fitness Program For the Purpose of:: To improve safety, To improve health and function, To foster healthy habits, To improve decision making, To facilitate caregiver knowledge, To improve self management, To prevent re-injury, To improve ability to perform tasks related to life management Therapeutic Exercise to Include: Strength training, Coordination, Postural training, Flexibilty training, Passive ROM, Active ROM, Scapular Strength/Stabilization For the Purpose of:: To decrease pain, To increase ROM, To improve nutrient delivery to tissue, To increase oxygenation perfusion, To improve muscle performance and motor function, To improve ability to perform ADL's, To increase tolerance to activity/condition/position, To improve performance and independence with ADL's, To decrease level of supervision to perform tasks, To improve health of tissue, To decrease soft tissue restriction, To increase f lexibility/ROM Manual Therapy Techniques to Include: Mobilization, Soft tissue mobilization For the Purpose of:: To decrease pain, To decrease swelling/inflammation, To increase ROM, To improve nutrient delivery to tissue, To increase oxygenation perfusion, To improve muscle performance and motor function Thank you for the opportunity to evaluate your patient. For Medicare and Medicare HMO plans, please review the plan of care and approve it. It will need to be FAXED BACK to us at [phone] for Medicare purposes. For Medicare only, by signing this I certify the plan of care. Please let me know if there are questions or concerns regarding this plan of care. Physician Signature: Date:
--- NOTE | 2022-06-07 18:50 | HP.PTREVAL_ITS ---
Dr. Yessi Cuevas MD, It has been my pleasure to treat SHANE PALMER over the last 6 visits for L shoulder pain. Please see the progress note below for an update on the physical therapy plan of care! Subjective: Pt. is here for his reassessment. He is doing better, but did miss a few weeks with being sick with COVID. Pt. repots being 50% better overall. He is still having trouble with reaching over his head and behind his back. Objective/Function: ROM: L shoulder: AROM: flexion 130deg, abd 125deg, functional ER C4, functional IR L PSIS. PROM: L shoulder: flexion 160deg, abd 155deg, ER at 90deg 65deg, IR at 90deg 20deg. He is still limited with his active and passive ROM, He is improving, but continues to appear like he has some adhesive capsulitis, resulting in some impingement at end ranges of ER, ABD, flexion and IR. MMT: Pt. has good strength of L shoulder in neutral positioning including abd/flexion, IR. He is slightly weak with ER, but all strength weakens as he is more increase OH positions. Since we did not get to consistently see him I would like to give another trial with focus on end ragne mobilization and stretching. Plan Plan: Pt. recert for 2x per week for 4 weeks. Focus on grade IV mobilization in all directions, PROM and contract relax stretching. Once ROM as be restored educate in RTC/deltoid strengthening. Balance/Gait/Functional tests - Balance/Special Test Scores Quick DASH Score: 20.4525 Goals Goal 1:: LTG: Pt. to be I with HEP. Goal Time Frame: 4-6 Weeks Goal Progress: Progressing Goal 2:: STG: Pt. to have increased PROM of L shoulder equal to R side. Goal Time Frame: 2 Weeks Goal Progress: Progressing Goal 3:: LTG: Pt. to have increased AROM of L shoulder equal to R side. Goal Time Frame: 4-6 Weeks Goal Progress: Progressing Goal 4:: LTG: pt. to have full symmetrical strength of L shoulder compared to R side. Goal Time Frame: 4-6 Weeks Goal Progress: Progressing Goal 5:: LTG: pt. to complete all work and recreational activities without increase in symptoms. Goal Time Frame: 4-6 Weeks Goal Progress: Progressing Anticipated Interventions Patient/Client Instruction: Educate patient on: Condition, Plan of Care, Risk Factors, Benefits of Fitness Program For the Purpose of:: To improve safety, To improve health and function, To foster healthy habits, To improve decision making, To facilitate caregiver dina cheek, To improve self management, To prevent re-injury, To improve ability to perform tasks related to life management Therapeutic Exercise to Include: Strength training, Coordination, Postural training, Flexibilty training, Passive ROM, Active ROM, Scapular Strength/Stabilization For the Purpose of:: To decrease pain, To increase ROM, To improve nutrient delivery to tissue, To increase oxygenation perfusion, To improve muscle performance and motor function, To improve ability to perform ADL's, To increase tolerance to activity/condition/position, To improve performance and independence with ADL's, To decrease level of supervision to perform tasks, To improve health of tissue, To decrease soft tissue restriction, To increase flexibility/ROM Manual Therapy Techniques to Include: Mobilization, Soft tissue mobilization For the Purpose of:: To decrease pain, To decrease swelling/inflammation, To increase ROM, To improve nutrient delivery to tissue, To increase oxygenation perfusion, To improve muscle performance and motor function Please do not hesitate to contact me at [phone] by phone or if you have questions or concerns regarding this new plan of care! Sincerely, Carlin Holloway DPT
--- NOTE | 2022-07-12 15:52 | HP.PTREVAL ---
Dr. Yessi Cuevas MD, It has been my pleasure to treat REYES PALMER over the last 13 visits for L shoulder pain. Please see the progress note below for an update on the physical therapy plan of care! Subjective: Pt. reports no pain today and he is slowly progressing with his ROM. He still has trouble with lifting and especially getting his arm behind his back. Pt. reports being 65% better overall. Objective/Function: ROM: AROM: flexion 140deg, abd 135deg, functional ER C2 aberrant motion, functional IR L PSIS. PROM: flexion 150deg, abd 150deg, ER at 90deg 55deg, IR at 90deg 20deg. MMT: PT. has good strength in mid ranges, but has marked limited mobility in rotations and at last 25-30% of his flexion and abuction motions. Reyes continues to slowly progress. I want him to continue to work on stretching and mobilization of his GH joint throughout flexion, abd. Progress into rotations as well. Plan Plan: Cont. to progress end range stretching of L shoulder into flexion, abduction motions. Cont. with functional ER/IR stretching and joint mobilizations grade IV throughout in order to increase capsule elasticity. I will see him for x2 per week for 4 weeks. Progressing towards these goals. Balance/Gait/Functional tests - Balance/Special Test Scores Quick DASH Score: 27.2725 Goals Goal 1:: LTG: Pt. to be I with HEP. Goal Time Frame: 4-6 Weeks Goal Progress: Progressing Goal 2:: STG: Pt. to have increased PROM of L shoulder equal to R side. Goal Time Frame: 2-4 Weeks Goal Progress: Progressing Goal 3:: LTG: Pt. to have increased AROM of L shoulder equal to R side. Goal Time Frame: 4-6 Weeks Goal Progress: Progressing Goal 4:: LTG: pt. to have full symmetrical strength of L shoulder compared to R side. Goal Time Frame: 4-6 Weeks Goal Progress: Progressing Goal 5:: LTG: pt. to complete all work and recreational activities without increase in symptoms. Goal Time Frame: 4-6 Weeks Goal Progress: Progressing Anticipated Interventions Patient/Client Instruction: Educate patient on: Condition, Plan of Care, Risk Factors, Benefits of Fitness Program For the Purpose of:: To improve safety, To improve health and function, To foster healthy habits, To improve decision making, To facilitate caregiver knowledge, To improve self management, To prevent re-injury, To improve ability to perform tasks related to life management Therapeutic Exercise to Include: Strength training, Coordination, Postural training, Flexibilty training, Passive ROM, Active ROM, Scapular Strength/Stabilization For the Purpose of:: To decrease pain, To increase ROM, To improve nutrient delivery to tissue, To increase oxygenation perfusion, To improve muscle performance and motor function, To improve ability to perform ADL's, To increase tolerance to activity/condition/position, To improve performance and independence with ADL's, To decrease level of supervision to perform tasks, To improve health of tissue, To decrease soft tissue restriction, To increase flexibility/ROM Manual Therapy Techniques to Include: Mobilization, Soft tissue mobilization For the Purpose of:: To decrease pain, To decrease swelling/inflammation, To increase ROM, To improve nutrient delivery to tissue, To increase oxygenation perfusion, To improve muscle performance and motor function Please do not hesitate to contact me at [phone] by phone or if you have questions or concerns regarding this new plan of care! Sincerely, Carlin Holloway DPT
--- NOTE | 2022-09-19 16:27 | HP.PTREVAL ---
Dr. Yessi Cuevas MD, It has been my pleasure to treat SHANE PALMER over the last 14 visits for L shoulder pain. Please see the progress note below for an update on the physical therapy plan of care! Subjective: Pt. reports overall doing well. Pt. did have an injection which helped. He was to have PT after knox, but due to timing he was not able to come. He reports no pain currently, but is still stiff. Objective/Function: AROM: L shoulder: flexion 135dge, abd 135deg, functional IR L5, functional ER C2. MMT: 4+/5 throughout. No pain with testing in mid range. Pt. has marked weakness at end range flexion and abduction. He is slowing improvements since his injection. I still want him to work on end range stretching and increased consistency with this. Plan Plan: Cont. to work on end range stretching progressing to strengthening as able. Push end range. Balance/Gait/Functional tests - Balance/Special Test Scores Quick DASH Score: 27.2725 Goals Goal 1:: LTG: Pt. to be I with HEP. Goal Time Frame: 4-6 Weeks Goal Progress: Progressing Goal 2:: STG: Pt. to have increased PROM of L shoulder equal to R side. Goal Time Frame: 2-4 Weeks Goal Progress: Progressing Goal 3:: LTG: Pt. to have increased AROM of L shoulder equal to R side. Goal Time Frame: 4-6 Weeks Goal Progress: Progressing Goal 4:: LTG: pt. to have full symmetrical strength of L shoulder compared to R side. Goal Time Frame: 4-6 Weeks Goal Progress: Progressing Goal 5:: LTG: pt. to complete all work and recreational activities without increase in symptoms. Goal Time Frame: 4-6 Weeks Goal Progress: Progressing Anticipated Interventions Patient/Client Instruction: Educate patient on: Condition, Plan of Care, Risk Factors, Benefits of Fitness Program For the Purpose of:: To improve safety, To improve health and function, To foster healthy habits, To improve decision making, To facilitate caregiver knowledge, To improve self management, To prevent re-injury, To improve ability to perform tasks related to life management Therapeutic Exercise to Include: Strength training, Coordination, Postural training, Flexibilty training, Passive ROM, Active ROM, Scapular Strength/Stabilization For the Purpose of:: To decrease pain, To increase ROM, To improve nutrient delivery to tissue, To increase oxygenation perfusion, To improve muscle performance and motor function, To improve ability to perform ADL's, To increase tolerance to activity/condition/position, To improve performance and independence with ADL's, To decrease level of supervision to perform tasks, To improve health of tissue, To decrease soft tissue restriction, To increase flexibility/ROM Manual Therapy Techniques to Include: Mobilization, Soft tissue mobilization For the Purpose of:: To decrease pain, To decrease swelling/inflammation, To increase ROM, To improve nutrient delivery to tissue, To increase oxygenation perfusion, To improve muscle performance and motor function Please do not hesitate to contact me at [phone] by phone or if you have questions or concerns regarding this new plan of care! Sincerely, TC DislaT
== END 2022-10-26 19:00 | disposition home or self-care (01) ==
LOC: PT 14:30
PROVIDERS: PCP Family Medicine; Referring Provider Family Medicine; Visit Provider Family Medicine
DX: M25.512 Pain in left shoulder (principal)
CPT/HCPCS: 97110; 97140; 97161; 97164; 97530

== ENCOUNTER → 2023-03-21 | Outpatient (CLI) | payer OTHER, SELFPAY ==
--- NOTE | 2023-03-21 12:17 | ECHOD_ITS ---
Reason For Study: CSA Procedure This was a 2D Doppler, Color Flow transthoracic echocardiogram. Exam performed in department. Left Ventricle Normal left ventricle. The left ventricular ejection fraction is 65 %. Normal diastololic function. Right Ventricle Normal right ventricle. Atria The left and right atria are normal. Mitral Valve The mitral valve is structurally normal. No prolapse or stenosis seen. Tricuspid Valve Trivial tricuspid valve insufficiency. Unable to estimate RV systolic pressure due to insufficient tricuspid regurgitant envelope. Aortic Valve Normal aortic valve. Pulmonic Valve The pulmonic valve is not well visualized. Great Vessels Normal sized aortic root. MMode/2D Measurements & Calculations LVIDd: 5.1 cm IVSd: 0.82 cm Ao root diam: 3.2 cm LVIDs: 3.1 cm LVPWd: 0.99 cm RVDd: 3.1 cm FS: 40.4 % LAV(MOD-bp): 43.8 ml EDV(MOD-sp4): 106.7 ml EDV(MOD-sp2): 89.4 ml LAV(MOD-bp) Indexed: 20.5 ml/m2 ESV(MOD-sp4): 43.0 ml ESV(MOD-sp2): 32.3 ml LAV(MOD-sp2): 43.7 ml EF(MOD-sp4): 59.7 % EF(MOD-sp2): 63.9 % LAV(MOD-sp4): 43.6 ml SV(MOD-sp4): 63.7 ml SV(MOD-sp2): 57.1 ml LA A4 area: 16.0 cm2 LA dimension(2D): 3.3 cm RA A4 area: 12.1 cm2 Time Measurements MV dec time: 0.20 sec Doppler Measurements & Calculations MV E max chicho: 86.1 cm/sec Lat Peak E' Chicho: 12.4 cm/sec Med Peak E' Chicho: 11.8 cm/sec MV A max chicho: 68.2 cm/sec E/E' lat: 7.0 E/E' med: 7.3 MV E/A: 1.3 MV V2 max: 95.6 cm/sec MV P1/2t max chicho: 95.6 cm/sec Ao V2 max: 138.6 cm/sec MV max P.7 mmHg MV P1/2t: 71.2 msec Ao max P.7 mmHg MV V2 mean: 41.9 cm/sec MV dec slope: 393.7 cm/sec2 Ao V2 mean: 99.0 cm/sec MV mean P.95 mmHg Ao mean P.5 mmHg MV V2 VTI: 29.1 cm MVA(P1/2t): 3.1 cm2 Ao V2 VTI: 31.4 cm AV (velocity ratio): 0.54 LV V1 max: 90.4 cm/sec PA V2 max: 99.9 cm/sec LV V1 max P.3 mmHg LV V1 mean P.7 mmHg LV V1 mean: 62.2 cm/sec LV V1 VTI: 17.0 cm ECHO/Echo Complete Interpretation Summary The left ventricular ejection fraction is 65 %. Ordering Physician: Derrick Latham V Referring Physician: Yessi Cuevas Performed By: Carli Ralph RDCS, RVT
== END | disposition home or self-care (01) ==
PROVIDERS: PCP Family Medicine; Referring Provider Internal Medicine Pulmonary Disease; Visit Provider Internal Medicine Pulmonary Disease
DX: G47.31 Primary central sleep apnea (principal)
CPT/HCPCS: 93306

== ENCOUNTER → 2023-11-26 | Outpatient (CLI) | payer OTHER, SELFPAY ==
--- OUTSIDE RECORDS SUMMARY | 2023-11-26 07:07 | XMS RPT_ITS | CCD ---
Author Name Unknown Address [address] [place] [address] Organization [facility] Care Team Providers Care School Counsellor Name Role Phone Eva Nelson LPN Unavailable Unavailable Omar OLIVA, Eva Berkley Unavailable Unavailable Yessi Cuevas Primary Care Provider [phone] Yessi Cuevas Primary Care Provider Mason SCHNEIDER, Yessi Mahmood Primary Care Provider [phone] Adriana España NP Unavailable [phone] Eva Nelson LPN Unavailable Unavailable Omar OLIVA, Eva Berkley Unavailable Unavailable Sherry Du L Unavailable Mason SCHNEIDER, Yessi Mahmood Primary Care Provider YESSI CUEVAS Primary Care Unavailable NELIDA BLANCO Attending Unavailab DERREK Guevara Attending UnavailYESSI Kendall Primary Care Unavailable HOA ZULUAGA Attending Unavailable YESSI CUEVAS Primary Care Unavailable DERREK BENDER Attending Unavaila YESSI Hernandez ONELIA Primary Care Unavailable Allergies Allergy Classification Reported Allergen(s) Allergy Type Date of Onset Reaction(s) Facility (7 sources) ipratropium Drug Allergy 08-09-20 12 [facility] Work Phone: (7 sources) Nuts (not including peanuts) drug allergy 08-09-20 [facility] Work Phone: (7 sources) promethazine Drug Allergy 08-09-20 12 [facility] Work Phone: (7 sources) shellfish, unspecified; Translations: [SHELLFISH] food allergy 08-09-20 12 [facility] Work Phone: (7 sources) strawberry; Translations: [STRAWBERRIES] food allergy 08-09-20 12 Rash [facility] Work Phone: (7 sources) wheat; Translations: [WHEAT] food allergy 08-09-20 12 Rash [facility] Work Phone: (14 sources) cashew nut allergenic extract; Translations: [CASHEW NUT] Drug Allergy 04-16-20 19 Anaphylaxis, Hives [facility] (14 sources) Zapata - fruit; Translations: [ORANGE] Propensity to adverse reactions to drug 04-16-20 19 Shortness Of Breath, Itching [facility] (14 sources) Promethazine; Translations: [PROMETHAZINE] Drug Allergy 04-16-20 19 GI Intolerance [facility] (14 sources) rice allergenic extract; Translations: [RICE] Drug Allergy 04-16-20 19 Shortness Of Breath [facility] (14 sources) Animal Dander; Translations: [ANIMAL DANDER] Propensity to adverse reactions to drug 04-16-20 19 Hives, Shortness Of Breath [facility] Medications Current Medications Medication Drug Class(es) Dates Sig (Normalized) Sig (Original) aspirin 81 mg delayed release oral tablet (20 sources) Platelet Aggregation Inhibitor, Nonsteroidal Anti-inflammatory Drug take 1 tablet by mouth once daily aspirin 81 MG EC tablet Take 1 (one) tablet (81 mg total) by mouth daily . 0 Active Completed/Discontinued Medications Medication Drug Class(es) Dates Sig (Normalized) Sig (Original) amoxicillin (2 sources) Penicillin-class Antibacterial AMOXICILLIN CAPS AMOXICILLIN CAPS [id number] Adriana España EXECUTIVE CANDIDATE DEVELOPER beclomethasone dipropionate 0.042 mg/actuat metered dose nasal spray (14 sources) Corticosteroid Start: 08-09-2012 End: 01-27-2014 BECONASE AQ 42 MCG/SPRAY SUSP 2 sprays daily BECLOMETHASONE DIPROP MONOHYD [id number] Deonte Richter enalapril maleate 20 mg oral tablet (20 sources) Angiotensin Converting Enzyme Inhibitor Start: 08-09-2012 ENALAPRIL MALEATE 20 MG TABS daily ENALAPRIL MALEATE [id number] Latanya Gatica [id number] 0.3 ml EPINEPHrine 1 mg/ml auto-injector (10 sources) alpha-Adrenergic Agonist, beta-Adrenergic Agonist, Catecholamine Start: 08-09-2012 End: 01-27-2014 EPIPEN PELON 1:1000 as directed EPINEPHRINE PELON [id number] Latanya Gatica EPINEPHRINE PELON (4 sources) Start: 08-09-2012 EPIPEN PELON 1:1000 as directed EPINEPHRINE PELON [id number] Latanya Gatica Problems Active Problems Problem Classification Problem Date Documented Da te Episodic/Chronic Diabetes mellitus with complications (3 sources) Type 1 diabetes mellitus uncontrolled; Translations: [Type 1 diabetes mellitus with diabetic autonomic (poly)neuropathy] Onset: 04-25-2019 Chronic Diabetes mellitus without complication (20 sources) Type 1 diabetes mellitus; Translations: [Type 1 diabetes mellitus with diabetic autonomic (poly)neuropathy] Onset: 04-29-2017 04-29-2017 Chronic Disorders of lipid metabolism (7 sources) Hyperlipidemia; Translations: [Hyperlipidemia, unspecified] Onset: 04-29-2017 04-29-2017 Chronic Unclassified (2 sources) Insertion of insulin pump; Translations: [prison (current) use of insulin] Onset: 10-03-2017 10-04-2017 Past or Other Problems Problem Classification Problem Date Documented Da te Episodic/Chronic Other connective tissue disease (7 sources) Adhesive capsulitis of shoulder; Translations: [Adhesive capsulitis of right shoulder] 08-12-2012 Episodic Other non-traumatic joint disorders (7 sources) Pain in unspecified shoulder; Translations: [Pain in joint, shoulder region] 08-12-2012 Episodic Other skin disorders (7 sources) Localized swelling, mass and lump, unspecified; Translations: [Localized superficial swelling, mass, or lump] 01-28-2014 Episodic Results Test Name Value Interpretation Reference Range Facil ity Vital Signs Date Time Vital Sign Value Performing Clinician Facility 03-28-2023 08:04-0400 Body mass index (BMI) [Ratio] 28.41 kg/m2 Derrek Bender PA-C Work Phone: [facility] 03-28-2023 08:04-0400 Body weight 92.4 kg Derrek Bender PA-C Work Phone: [facility] 03-28-2023 08:04-0400 Diastolic blood pressure 85 mm[Hg] Derrek Kleinmann PA-C Work Phone: [facility] 03-28-2023 08:04-0400 Heart rate 66 /min Derrek Kleinmann PA-C Work Phone: [facility] 03-28-2023 08:04-0400 Systolic blood pressure 133 mm[Hg] Derrek Kleinmann PA-C Work Phone: [facility] 02-13-2022 15:02-0400 Body height 180.4 cm Derrek Kleinmann PA-C Work Phone: [facility] 02-13-2022 15:02-0400 Body mass index (BMI) [Ratio] 29.16 kg/m2 Derrek Kleinmann PA-C Work Phone: [facility] 02-13-2022 15:02-0400 Body weight 94.94 kg Derrek Kleinmann PA-C Work Phone: [facility] 02-13-2022 15:02-0400 Diastolic blood pressure 81 mm[Hg] Derrek Kleinmann PA-C Work Phone: [facility] 02-13-2022 15:02-0400 Heart rate 61 /min Derrek Kleinmann PA-C Work Phone: [facility] 02-13-2022 15:02-0400 Systolic blood pressure 126 mm[Hg] Derrek Kleinmann PA-C Work Phone: [facility] 11-04-2020 11:33-0500 BMI (Body Mass Index) 28.21 kg/m2 Nelida Blanco [facility] 11-04-2020 11:33-0500 Body weight 91.85 kg Nelida Blanco [facility] 11-04-2020 11:33-0500 BP Diastolic 80 mm[Hg] Nelida Blanco [facility] 11-04-2020 11:33-0500 BP Systolic 134 mm[Hg] Nelida Blanco [facility] 11-04-2020 11:33-0500 Height 180.4 cm Nelida Blanco [facility] 11-04-2020 11:33-0500 Pulse (Heart Rate) 59 /min Nelidashayy Blanco [facility] 09-02-2019 09:00-0400 BMI (Body Mass Index) 28.14 kg/m2 Nelidashayy Blanco [facility] 09-02-2019 09:00-0400 Body weight 91.63 kg Nelidashayy Blanco [facility] 09-02-2019 09:00-0400 BP Diastolic 87 mm[Hg] Nelidashayy Blanco [facility] 09-02-2019 09:00-0400 BP Systolic 129 mm[Hg] Nelidashayy Blanco [facility] 09-02-2019 09:00-0400 Height 180.4 cm Nelida [facility] 09-02-2019 09:00-0400 Pulse (Heart Rate) 57 /min Nelidashayy Blanco [facility] 04-25-2019 13:06-0400 BMI (Body Mass Index) 29.71 kg/m2 Hoa Zuluaga [facility] 04-25-2019 13:06-0400 BP Diastolic 79 mm[Hg] Hoa Zuluaga [facility] 04-25-2019 13:06-0400 BP Systolic 123 mm[Hg] Hoa Zuluaga [facility] 04-25-2019 13:06-0400 Height 180.3 cm Hoa Zuluaga [facility] 04-25-2019 13:06-0400 Pulse (Heart Rate) 60 /min Hoa Zuluaga [facility] 04-25-2019 13:06-0400 Weight 96.62 kg Hoa Zuluaga [facility] 10-03-2017 09:07-0500 BMI (Body Mass Index) 30.44 kg/m2 [facility] Work Phone: 10-03-2017 09:07-0500 Body Temperature 98.3 [degF] [facility] Work Phone: 10-03-2017 09:07-0500 BP Diastolic 74 mm[Hg] [facility] Work Phone: 10-03-2017 09:07-0500 BP Systolic 122 mm[Hg] [facility] Work Phone: 10-03-2017 09:07-0500 Height 177.8 cm Eva Omar BURIAL VAULT DELIVERER AND INSTALLER [facility] Work Phone: 10-03-2017 09:07-0500 Pulse (Heart Rate) 68 /min Eva Nelson LPN [facility] Work Phone: 10-03-2017 09:07-0500 Respiratory Rate 18 /min Eva Nelson [facility]PN [facility] Work Phone: 10-03-2017 09:07-0500 Weight 96.25 kg Eva Nelson LPN [facility] Work Phone: 07-26-2017 08:07-0400 Body height 177.8 cm Eva Nelson LPN [facility] Work Phone: 07-26-2017 08:07-0400 Body mass index (BMI) [Ratio] 30.42 kg/m2 Eva Nelson LPN [facility] Work Phone: 07-26-2017 08:07-0400 Body temperature 97.5 [degF] Eva Nelson LPN [facility] Work Phone: 07-26-2017 08:07-0400 Body weight 96.16 kg Eva Nelson LPN [facility] Work Phone: 07-26-2017 08:07-0400 Diastolic blood pressure 73 mm[Hg] Eva Nelson LPN [facility] Work Phone: 07-26-2017 08:07-0400 Heart rate 58 /min Eva Nelson LPN [facility] Work Phone: 07-26-2017 08:07-0400 Respiratory rate 18 /min Eva Nelson LPN [facility] Work Phone: 07-26-2017 08:07-0400 Systolic blood pressure 112 mm[Hg] Eva Nelson LPN [facility] Work Phone: 04-23-2017 16:33-0400 Body height 177.8 cm Adriana España NP Work Phone: [facility] Work Phone: 04-23-2017 16:33-0400 Body mass index (BMI) [Ratio] 30.27 kg/m2 Adriana Shook EXECUTIVE CANDIDATE DEVELOPER Work Phone: [facility] Work Phone: 04-23-2017 16:33-0400 Body temperature 98.8 [degF] Adriana Shook EXECUTIVE CANDIDATE DEVELOPER Work Phone: [facility] Work Phone: 04-23-2017 16:33-0400 Body weight 95.71 kg Adriana Larryok EXECUTIVE CANDIDATE DEVELOPER Work Phone: [facility] Work Phone: 04-23-2017 16:33-0400 Diastolic blood pressure 76 mm[Hg] Adriana Larryok EXECUTIVE CANDIDATE DEVELOPER Work Phone: [facility] Work Phone: 04-23-2017 16:33-0400 Heart rate 57 /min Adriana Larryok EXECUTIVE CANDIDATE DEVELOPER Work Phone: [facility] Work Phone: 04-23-2017 16:33-0400 Respiratory rate 16 /min Adriana Larryok EXECUTIVE CANDIDATE DEVELOPER Work Phone: [facility] Work Phone: 04-23-2017 16:33-0400 SaO2% (BldA) [Mass fraction] 95 % Adriana Shook EXECUTIVE CANDIDATE DEVELOPER Work Phone: [facility] Work Phone: 04-23-2017 16:33-0400 Systolic blood pressure 117 mm[Hg] Adriana Larryok EXECUTIVE CANDIDATE DEVELOPER Work Phone: [facility] Work Phone: 04-23-2017 16:33-0400 Weight 95.71 kg Eva Nelson LPN [facility] Work Phone: 01-27-2014 14:18-0400 Body surface area Derived from formula 2.1 m2 Adriana Shook EXECUTIVE CANDIDATE DEVELOPER Work Phone: [facility] Work Phone: Encounters Encounter Date Encounter Type Care Provider Facility Start: 03-28-2023 End: 03-28-2023 ambulatory DERREK BENDER [facility] Start: 03-28-2023 End: 03-28-2023 Office outpatient visit 25 minutes Derrek Bender PA-C Work Phone: [facility] Procedures Date Procedure Procedure Detail Performing Clinician Start: 03-28-2023 External it web development consultant, CGM sys Derrek Bender PA-C Work Phone: Start: 03-28-2023 Hemoglobin glycosylated a1c Derrek Bender PA-C Work Phone: Start: 03-28-2023 3 comp foot exam completed Derrek Bender PA-C Work Phone: Start: 09-11-2022 3 comp foot exam completed Derrek Bender PA-C Work Phone: Start: 09-07-2022 Microalbumin [Mass/v olume] in Urine by Test strip Derrek Bender PA-C Work Phone: Start: 02-13-2022 MISCELLANEOUS DME EQUIPMENT Derrek Bender PA-C Work Phone: Start: 02-13-2022 3 comp foot exam completed Derrek Bender PA-C Work Phone: Start: 11-04-2020 3 comp foot exam completed Nelida Blanco Start: 07-05-2020 Microalbumin [Mass/v olume] in Urine by Test strip Derrek Bender PA-C Work Phone: Start: 04-25-2019 3 comp foot exam completed Nelida Blanco Start: 07-26-2017 End: 07-26-2017 Documentation of current medications Eva Nelson LPN Start: 04-23-2017 End: 04-23-2017 Dietary management education, guidance, and counseling Adriana España NP Work Phone: Start: 04-23-2017 End: 04-23-2017 Documentation of current medications Adriana España NP Work Phone: Start: 02-13-2014 Exc tumor soft tissu e neck/thorax subfasc 5 cm/> Chani Donahue Work Phone: Start: 02-13-2014 Exc tumor soft tissu e neck/thorax subfasc 5 cm/> Chani Donahue Work Phone: Plan of Treatment Date Care Activity Detail Author Start: 02-08-2031 Tetanus vaccination Tetanus: Every 10yrs [facility] Start: 03-28-2024 Diabetic foot examination Foot Exam [facility] Start: 09-28-2023 Hemoglobin A1c measurement A1C [facility] Start: 09-11-2023 Diabetic foot examination Foot Exam [facility] Start: 09-07-2023 Urine screening for protein Urine Microalbumin [facility] Start: 08-03-2023 End: 08-03-2023 Patient encounter procedure 08/03/2023 8:00 AM EDT Office Visit [facility] [place] [address] [place] [address] Nelida Blanco CNP [address] [place] [address] [facility] [place] Start: 07-20-2023 Influenza vaccination Sequential Influenza Vaccine (Season Ended) [facility] Start: 03-12-2023 End: 03-12-2023 Patient encounter procedure 03/12/2023 2:15 PM EDT Office Visit [facility] [address] [place] [address] Nelida Blanco CNP [address] [place] [address] [facility] [place] Start: 03-08-2023 Hemoglobin A1c measurement A1C [facility] Start: 02-13-2023 Diabetic foot examination Foot Exam [facility] Start: 08-10-2022 Hemoglobin A1c measurement A1C [facility] Start: 06-14-2022 End: 06-14-2022 Patient encounter procedure 06/14/2022 Office Visit Endocrinology Derrek Bender PA-C [address] [place] [address] [facility] Start: 02-13-2022 End: 02-13-2022 Patient encounter procedure 02/13/2022 Office Visit Endocrinology Derrek Bender PA-C [address] [place] [address] [facility] Start: 11-04-2021 Diabetic foot examination Foot Exam [facility] Start: 07-20-2021 Influenza vaccination Sequential Influenza Vaccine (#1) [facility] Start: 07-05-2021 Microalbumin measurement, urine, quantitative Urine Microalbumin [facility] Start: 05-03-2021 HbA1c (Bld) [Mass fraction] A1C [facility] Start: 05-03-2021 Hemoglobin A1c measurement A1C [facility] Start: 2021 Administration of herpes zoster vaccine Zoster Vaccines (1 of 2) [facility] Start: 2021 Screening for malignant neoplasm of colon [facility] Start: 03-03-2021 End: 03-03-2021 Office Visit 03/03/2021 Office Visit Endocrinology Jordana Castrejon PA-C [address] [place] [address] [phone] [facility] Start: 02-18-2021 End: 11-05-2021 Comprehensive metabolic 2000 panel Comprehensive Metabolic Panel Lab Routine Type 1 diabetes mellitus with diabetic autonomic neuropathy (HCC) Expected: 02/18/2021, Expires: 11/05/2021 [facility] Payers Date Payer Category Payer Unknown [employer] PPO xxxxxxxxxxxx 2015-Present xxxxxxxxxxxx [id number] 2015 Unknown [id number] 2015 Unknown [employer] PPO [id number] 2015-Present [phone] [address] [place] [address] [id number] 2015 Unknown [id number] 1970 Unknown [id number] 1970 Unknown [id number] 1970 Unknown [id number] 1970 Unknown [id number] Social History Date Type Detail Facility Start: 04-27-2019 End: 09-11-2022 Tobacco smoking status ARIS Never smoker [facility] Start: 04-25-2019 Alcohol Comment rare [facility] Start: 1970 Sex Assigned At Not on file [facility] Start: 09-02-2019 End: 03-28-2023 Alcohol intake Current drinker of alcohol (finding) [facility] Start: 11-04-2020 End: 09-11-2022 Tobacco use and exposure Never used [facility] Start: 02-03-2022 End: 03-28-2023 Exposure to SARS-CoV-2 (event) Not sure [facility] Start: 09-11-2022 History of Social function [facility] Start: 09-11-2022 Tobacco use panel [facility] Start: 02-13-2022 Gender identity Identifies as male gender (finding) [facility] Start: 02-13-2022 Sexual orientation Heterosexual (fin ding) [facility] History of Present illness Narrative 03-28-2023 Derrek Bender PA-C - 03/28/2023 8:00 AM EDT Note Date & Type Note Facility 03-28-2023 History of Presen t illness Narrative Images from the original note were not included. Patient ID: Shane Zuñiga is a 53 y.o. male 1970 Subjective: Shane Zuñiga presents for follow up of Type 1 diabetes Diagnosed with DM Oct 08, 1978 Pt last seen over 7 months ago in 09/09. He continues on a T slim insulin pump with a Dexcom CGM. This was downloaded and reviewed tdoay. He does not utilize Control IQ, but does have basal IQ activated. He does not enter carb amounts, but consistently uses 1:15 ratio to calculate his own boluses. 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 He reports recently being diagnosed with central sleep apnea. Sleep study with therapeutic CPAP unsuccessful, is planning on repeat sleep study with [facility]. He did not have his labs updated. HgbA1c obtained in office 6.4%. CGM, pump downloaded and reviewed. He was also started on levothyroxine 50mcg daily in the past for mild hypothyroidism. He did not have any follow up labs completed, but reports taking his dose daily. Diagnostic CGM interpretation: CGM report attached reviewed from dates 03/21 - 03/27 Glucoses mostly well controlled time in range 74-95%. He does have about a 9% hypoglycemia burden from 6 PM-6 AM. He utilizes temporary basal at times if responsibility at work requires more physical activity. Allergies Allergen Reactions Animal Dander Hives and Shortness Of Breath Cashew Nut Anaphylaxis and Hives Throat closes Zapata Shortness Of Breath and Itching Phenergan [Promethazine] GI Intolerance Rice Shortness Of Breath All grains Outpatient Medications Marked as Taking for the 03/28/23 encounter (Office Visit) with Derrek Bender PA-C: aspirin 81 MG EC tablet, Take 1 (one) tablet (81 mg total) by mouth daily . atorvastatin (LIPITOR) 20 MG tablet, TAKE 1 TABLET DAILY DULoxetine (CYMBALTA) 60 MG capsule, Take 1 (one) capsule (60 mg total) by mouth daily . enalapril (VASOTEC) 20 MG tablet, Take 1 (one) tablet (20 mg total) by mouth daily . insulin aspart U-100 (NovoLOG) 100 unit/mL injection, Use as directed with insulin pump, approx 60 units daily . (Patient taking differently: Use as directed with insulin pump, approx 35 units daily .) levothyroxine (SYNTHROID, LEVOTHROID) 50 MCG tablet, Take 1 (one) tablet (50 mcg total) by mouth daily . magnesium 250 mg Tab, Take 1 (one) tablet (250 mg total) by mouth daily . multivit-minerals/FA/lycopene (ONE-A-DAY MEN'S ORAL), Take 1 tablet by mouth daily . omeprazole (PRILOSEC) 40 MG capsule, Take 1 (one) capsule (40 mg total) by mouth daily . theophylline (ESEQUIEL-24) 300 MG 24 hr capsule, Take 1 (one) capsule (300 mg total) by mouth daily . triamcinolone (NASACORT) 55 mcg nasal inhaler, Instill 2 (two) sprays into each nostril daily . Review of Systems: Review of Systems Constitutional: Negative for appetite change, fatigue and unexpected weight change. HENT: Negative for trouble swallowing and voice change. Eyes: Negative for visual disturbance. Respiratory: Negative for cough, chest tightness, shortness of breath and wheezing. Cardiovascular: Negative for chest pain, palpitations and leg swelling. Gastrointestinal: Negative for abdominal pain, constipation, diarrhea, nausea and vomiting. Endocrine: Negative for polydipsia, polyphagia and polyuria. Genitourinary: Negative for dysuria and frequency. Musculoskeletal: Negative for arthralgias, gait problem and myalgias. Skin: Negative for rash and wound. Neurological: Negative for weakness, numbness and headaches. Psychiatric/Behavioral: Negative for sleep disturbance. The following portions of the patient's history were reviewed and updated as appropriate: allergies, current medications, past family history, past medical history, past social history, past surgical history and problem list. Objective: BP 133/85 Pulse 66 Wt 92.4 kg (203 lb 11.2 oz) BMI 28.41 kg/m Wt Readings from Last 3 Encounters: 03/28/23 92.4 kg (203 lb 11.2 oz) 09/11/22 93.4 kg (206 lb) 02/13/22 94.9 kg (209 lb 4.8 oz) Physical Exam: General: alert, appears stated age and cooperative Eyes: conjunctivae/corneas clear. PERRL, EOM's intact. Neck: no adenopathy, supple, symmetrical, trachea midline. Thyroid: No thyromegaly appreciated Lung: clear to auscultation bilaterally Heart: regular rate and rhythm, S1, S2 normal, no murmur, click, rub or gallop Extremities: extremities normal, atraumatic, no cyanosis or edema Feet: Dry skin, Bilateral Feet: warm, good capillary refill and normal DP. Monofilament exam Normal , bilateral lower extremities. Neuro: normal without focal findings, mental status, speech normal, alert and oriented x3 and RAUL Lab Review 03/28/2023 Hemoglobin A1c 6.4% 09/07/22 Hgb A1c: 6.4% Creat: 1.0; eGFR: 84 AST: 37; ALT: 46 K: 4.3 CBC: WBC:6.40; Hgb: 15.8; Hct: 45.3; Plt: 244 Tchol: 141; Tri ; HDL: 73 ; LDL: 60 TSH: 3.86 ; FreeT4: 1.08 Microalbumin/creatinine Ratio: 9.6 03/01/22 TSH: 2.58; FreeT4: 1.04 02/07/2022 Hemoglobin A1c 6.7% 11/02/20 Hgb A1c: 6.4% Creat: 0.96; eGFR: 89 AST: 27; ALT: 36 K: 3.8 Tchol: 121; Tri ; HDL: 52 ; LDL: 59 TSH: 4.11 ; FreeT4: 1.38 07/05/2020 Hemoglobin A1c 6.8% Creatinine 1.00, estimated GFR 84, K4.4 AST 29, ALT 39 T cholesterol 181, TG 52, HDL 55, LDL 116 Microalbumin/creatinine ratio: <5.0 09/01/19 Hgb A1c: 7.0% Creat: 0.95; eGFR: 89 AST: 42; ALT: 47 K: 3.9 Tchol: 154; Tri ; HDL: 57 ; LDL: 90 04/21/2019 Hgb A1c: 6.7% Creat: 0.95, sodium 140, potassium 4.4, estimated GFR 90 AST 29, ALT 32 Total cholesterol 163, triglycerides 58, HDL 47, LDL 104 TSH 3.04 WBC 6.00, hemoglobin 15.0, hematocrit 43.8, platelet count 239,000 Microalbumin/creatinine Ratio: 6.0 Assessment/Plan: Dx: 1. Type 1 diabetes mellitus with diabetic autonomic neuropathy (HCC) POC Hemoglobin A1C Hemoglobin A1c Comprehensive Metabolic Panel Lipid Panel T4, Free TSH External Lab Microalbumin/Creatinine CBC and Differential Type 1 diabetes, under good control Patient is currently managed with: Currently taking: Insulin Pump using Novolog insulin Current Hemoglobin A1C= Lab Results Component Value Date HGBA1C 6.4 (A) 03/28/2023 HGBA1C 6.4 09/07/2022 HGBA1C 6.7 02/07/2022 Weight trend: has decreased 3 lbs. Current diet: carbohydrate counting Current exercise: walking and active at work Current monitoring regimen: home blood tests - 8-10 times daily with Dexcom sensor times daily Home blood sugar records: CGM download Any episodes of hypoglycemia? Yes -- 9% hypoglycemia burden from 6pm-6am, at times during work shift. 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 yes Enalapril Need to recheck kidney function Peripheral Neuropathy: Negative Denies symptoms associated with neuropathy (numbness and/or tingling) Autonomic Neuropathy: Positive Hypoglycemia unawareness. Does not sense low BG unless <50 mg/dl. Able to sense high BG. Intranasal glucagon sent today. Other: Hyperlipidemia: Negative Currently taking: on atorvastatin. LFT's WNL. 11/02/20: Tchol: 141; Tri ; HDL: 73 ; LDL: 60 PLAN: CPM. Recheck lipids. Hypertension: Negative . Currently taking: enalapril (Vasotec) BP: 133/85 Cardiac: Negative Experiencing chest pain No . Experiencing shortness of breath No History of No history of CAD Follows routinely with: Vascular: Negative History of None Feet: Follows with Podiatry: No Contact Agent: History of foot ulceration: No History of amputation: No Thyroid: Pt started on levothyroxine 50mcg daily at last apt >1 year ago. Need to recheck TFTs Lab Results Component Value Date TSH 3.86 09/07/2022 Positive Hypothyroidism on levothyroxine 50 mcg/day. PLAN: Recheck TFTs. Other: Current pump settings: Basal rate: Standard 0000--0.650 units/h 0300--0.500 0600--0.850 1200--0.600 1400--0.450 2330--0.600 Insulin: Carbohydrate ratio: 15 Insulin sensitivity: 30 Plan: 1. Rx changes: none Resume auto basal function of new T-Slim pump with Dexcom sensor Patient warned regarding the risks associated with frequent hypoglycemia. Basal rate: Standard 0000--0.600 units/h 0300--0.500 0600--0.850 1200--0.600 1400--0.450 2330--0.575 Insulin: Carbohydrate ratio: 0000--15 Insulin sensitivity: 0000--50 Encouraged more frequent follow up overall. He needs full blood work panel updated. Regarding BG control he continues to overall maintain goal range glucoses. Basal rates reduced as above based on CGM download. Encouraged patient to contact office once sleep apnea treatment is initiated, he may need further reduction in nighttime basal rates. Intranasal glucagon sent 2. Education: Reviewed ABCs of diabetes management (respective goals in parentheses): A1C (7.0-8.0), blood pressure (<130/80), and cholesterol (LDL <100). 3. Compliance at present is estimated to be good. Efforts to improve compliance (if necessary) will be directed at dietary modifications: accurate carb counting and regular blood sugar monitorin-6 times daily. 4. Follow up: 4 months 5. Record blood sugar readings as instructed. Call if BG consistently <70 or >250. [phone] Patient has been checking blood glucoses 4 times daily for the past 90 days. Patient needs to continue checking blood glucoses 4 times daily. Blood glucose readings are used to adjust medication or insulin doses for meals, monitor dietary compliance, and adjust for high or low blood glucoses by patient on a daily basis. Blood glucose readings are reviewed at office visits for adjustment in medication regimen and assistance with dietary management, and other self-management issues including exercise, etc. Prognosis: Good. Duration of need for diabetes testing equipment: Permanent #150 strips/month prescribed. 6. Bring blood sugar meter to follow up appointment. Orders Placed This Encounter Procedures Hemoglobin A1c Comprehensive Metabolic Panel Lipid Panel T4, Free TSH External Lab Microalbumin/Creatinine CBC and Differential POC Hemoglobin A1C Electronically signed by: Derrek Bender PA-C, [facility] 03/28/23 8:57 AM documented in this encounter [facility] History of Present illness Narrative 02-13-2022 Derrek Bender PA-C - 02/13/2022 3:10 PM EDT Note Date & Type Note Facility 02-13-2022 History of Presen t illness Narrative Images from the original note were not included. Patient ID: Shane Zuñiga is a 51 y.o. male 1970 Subjective: Shane Zuñiga presents for follow up of Type 1 diabetes Patient has had diabetes for 40.5 years. Diagnosed in Oct 08, 1978 Patient has taken Insulin for 40.5 years Pt last seen over 15 months ago in 10/2020. He continues on a T slim insulin pump with a Dexcom CGM. This was downloaded and reviewed tdoay. He does not utilize Control IQ, but does have basal IQ activated. He does not enter carb amounts, but consistently uses 1:15 ratio to calculate his own boluses. He does report occasionally rapid drops in BG after a bolus especially in the morning when starting work. 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 He is still having trouble adjusting his sleep patterns. He complains of overall worsened fatigue. His most recent hemoglobin A1c is stable at 6.7%. He was also started on levothyroxine 50mcg daily at last apt for mild hypothyroidism. He did not have any follow up labs completed, but reports taking his dose daily. Allergies Allergen Reactions Animal Dander Hives and Shortness Of Breath Cashew Nut Anaphylaxis and Hives Throat closes Zapata Shortness Of Breath and Itching Phenergan [Promethazine] GI Intolerance Rice Shortness Of Breath All grains Outpatient Medications Marked as Taking for the 02/13/22 encounter (Office Visit) with Derrek Bender PA-C: aspirin 81 MG EC tablet, Take 81 mg by mouth daily . DULoxetine (CYMBALTA) 60 MG capsule, Take 60 mg by mouth daily . enalapril (VASOTEC) 20 MG tablet, Take 20 mg by mouth daily . insulin aspart U-100 (NovoLOG) 100 unit/mL injection, Use as directed with insulin pump, approx 60 units daily . levothyroxine (SYNTHROID, LEVOTHROID) 50 MCG tablet, Take 1 (one) tablet (50 mcg total) by mouth daily . magnesium 250 mg Tab, Take 1 tablet by mouth daily . multivit-minerals/FA/lycopene (ONE-A-DAY MEN'S ORAL), Take 1 tablet by mouth daily . omeprazole (PRILOSEC) 40 MG capsule, Take 40 mg by mouth daily . theophylline (ESEQUIEL-24) 300 MG 24 hr capsule, Take 300 mg by mouth daily . triamcinolone (NASACORT) 55 mcg nasal inhaler, Instill 2 sprays into each nostril daily . [DISCONTINUED] atorvastatin (LIPITOR) 20 MG tablet, TAKE 1 TABLET DAILY Review of Systems: Review of Systems Constitutional: Negative for appetite change, fatigue and unexpected weight change. HENT: Negative for trouble swallowing and voice change. Eyes: Negative for visual disturbance. Respiratory: Negative for cough, chest tightness, shortness of breath and wheezing. Cardiovascular: Negative for chest pain, palpitations and leg swelling. Gastrointestinal: Negative for abdominal pain, constipation, diarrhea, nausea and vomiting. Endocrine: Negative for polydipsia, polyphagia and polyuria. Genitourinary: Negative for dysuria and frequency. Musculoskeletal: Negative for arthralgias, gait problem and myalgias. Skin: Negative for rash and wound. Neurological: Negative for weakness, numbness and headaches. Psychiatric/Behavioral: Negative for sleep disturbance. The following portions of the patient's history were reviewed and updated as appropriate: allergies, current medications, past family history, past medical history, past social history, past surgical history and problem list. Objective: BP 126/81 Pulse 61 Ht 5' 11.04 Wt 94.9 kg (209 lb 4.8 oz) BMI 29.16 kg/m Wt Readings from Last 3 Encounters: 02/13/22 94.9 kg (209 lb 4.8 oz) 11/04/20 91.9 kg (202 lb 8 oz) 07/07/20 89.5 kg (197 lb 6.4 oz) Physical Exam: General: alert, appears stated age and cooperative Eyes: conjunctivae/corneas clear. PERRL, EOM's intact. Neck: no adenopathy, supple, symmetrical, trachea midline. Thyroid: No thyromegaly appreciated Lung: clear to auscultation bilaterally Heart: regular rate and rhythm, S1, S2 normal, no murmur, click, rub or gallop Extremities: extremities normal, atraumatic, no cyanosis or edema Feet: Dry skin, Bilateral Feet: warm, good capillary refill and normal DP. Monofilament exam Normal , bilateral lower extremities. Neuro: normal without focal findings, mental status, speech normal, alert and oriented x3 and RAUL Lab Review 02/07/2022 Hemoglobin A1c 6.7% 11/02/20 Hgb A1c: 6.4% Creat: 0.96; eGFR: 89 AST: 27; ALT: 36 K: 3.8 Tchol: 121; Tri ; HDL: 52 ; LDL: 59 TSH: 4.11 ; FreeT4: 1.38 07/05/2020 Hemoglobin A1c 6.8% Creatinine 1.00, estimated GFR 84, K4.4 AST 29, ALT 39 T cholesterol 181, TG 52, HDL 55, LDL 116 Microalbumin/creatinine ratio: <5.0 09/01/19 Hgb A1c: 7.0% Creat: 0.95; eGFR: 89 AST: 42; ALT: 47 K: 3.9 Tchol: 154; Tri ; HDL: 57 ; LDL: 90 04/21/2019 Hgb A1c: 6.7% Creat: 0.95, sodium 140, potassium 4.4, estimated GFR 90 AST 29, ALT 32 Total cholesterol 163, triglycerides 58, HDL 47, LDL 104 TSH 3.04 WBC 6.00, hemoglobin 15.0, hematocrit 43.8, platelet count 239,000 Microalbumin/creatinine Ratio: 6.0 Assessment/Plan: Dx: 1. Type 1 diabetes mellitus with diabetic autonomic neuropathy (HCC) TSH T4, Free Comprehensive Metabolic Panel Hemoglobin A1c Lipid Panel TSH T4, Free External Lab Microalbumin/Creatinine CBC and Differential atorvastatin (LIPITOR) 20 MG tablet Type 1 diabetes, under good control Patient is currently managed with: Currently taking: Insulin Pump using Novolog insulin Current Hemoglobin A1C= Lab Results Component Value Date HGBA1C 6.7 02/07/2022 HGBA1C 6.4 11/02/2020 HGBA1C 6.8 07/05/2020 Weight trend: has increased 5 lbs. Current diet: carbohydrate counting Current exercise: walking and active at work Current monitoring regimen: home blood tests - 8-10 times daily with Dexcom sensor times daily Home blood sugar records: CGM reviewed. Fasting BG: Pre-lunch BG: Pre-supper BG: Bedtime BG: Any episodes of hypoglycemia? Yes - after bolusing in the AM and then starting work occasionally. Appears with him calculating his own bolus amounts he at times over-calculates correction dose. 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 yes Enalapril Need to recheck kidney function Peripheral Neuropathy: Negative Denies symptoms associated with neuropathy (numbness and/or tingling) Autonomic Neuropathy: Positive Hypoglycemia unawareness. Does not sense low BG unless <50 mg/dl. Able to sense high BG. Other: Hyperlipidemia: Negative Currently taking: on atorvastatin. LFT's WNL. 11/02/20: Tchol: 121; Tri ; HDL: 52 ; LDL: 59 PLAN: CPM. Recheck lipids. Hypertension: Negative . Currently taking: enalapril (Vasotec) BP: 126/81 Cardiac: Negative Experiencing chest pain No . Experiencing shortness of breath No History of No history of CAD Follows routinely with: Vascular: Negative History of None Feet: Follows with Podiatry: No Contact Agent:0 History of foot ulceration: No History of amputation: No Thyroid: Pt started on levothyroxine 50mcg daily at last apt >1 year ago. Need to recheck TFTs Lab Results Component Value Date TSH 4.11 11/02/2020 Positive Hypothyroidism on levothyroxine 50 mcg/day. PLAN: Recheck TFTs. Other: Current pump settings: Basal rate: Standard 0000--0.600 units/h 0300--0.500 0600--0.850 1200--0.600 1400--0.500 2330--0.600 Insulin: Carbohydrate ratio: 15 Insulin sensitivity: 30 Plan: 1. Rx changes: none Resume auto basal function of new TSlim pump with Dexcom sensor Patient warned regarding the risks associated with frequent hypoglycemia. Basal rate: Standard 0000--0.650 units/h 0300--0.500 0600--0.850 1200--0.600 1400--0.450 2330--0.600 Insulin: Carbohydrate ratio: 0000--15 Insulin sensitivity: 0000--50 Encouraged more frequent follow up overall. He needs full blood work panel updated. Regarding BG control he continues to overall maintain goal range glucoses. He is at times bolusing a bit heavy for high BG in the AM causing subsequent low BG. He is interested in starting Control IQ closed loop function for his pump. We will process order for him to start that training and for the software update. 2. Education: Reviewed ABCs of diabetes management (respective goals in parentheses): A1C (7.0-8.0), blood pressure (<130/80), and cholesterol (LDL <100). 3. Compliance at present is estimated to be good. Efforts to improve compliance (if necessary) will be directed at dietary modifications: accurate carb counting and regular blood sugar monitorin-6 times daily. 4. Follow up: 4 months 5. Record blood sugar readings as instructed. Call if BG consistently <70 or >250. [phone] Patient has been checking blood glucoses 4 times daily for the past 90 days. Patient needs to continue checking blood glucoses 4 times daily. Blood glucose readings are used to adjust medication or insulin doses for meals, monitor dietary compliance, and adjust for high or low blood glucoses by patient on a daily basis. Blood glucose readings are reviewed at office visits for adjustment in medication regimen and assistance with dietary management, and other self-management issues including exercise, etc. Prognosis: Good. Duration of need for diabetes testing equipment: Permanent #150 strips/month prescribed. 6. Bring blood sugar meter to follow up appointment. Orders Placed This Encounter Procedures TSH T4, Free Comprehensive Metabolic Panel Hemoglobin A1c Lipid Panel TSH T4, Free External Lab Microalbumin/Creatinine CBC and Differential Electronically signed by: Derrek Bender PA-C, [facility] 02/14/22 12:41 PM documented in this encounter [facility] Fall risk assessment 04-23-2017 Note Date & Type Note Facility Evaluation note Note Date & Type Note Facility documented in this encounter [facility] Evaluation note Note Date & Type Note Facility documented in this encounter [facility] Evaluation note Note Date & Type Note Facility documented in this encounter [facility] Evaluation note Note Date & Type Note Facility documented in this encounter [facility] Evaluation note Note Date & Type Note Facility documented in this encounter [facility] Evaluation note Note Date & Type Note Facility documented in this encounter [facility] Evaluation note Note Date & Type Note Facility documented in this encounter [facility] History of Present Illness * Hoa Zuluaga MD - 04/25/2019 1:21 PM EDT Patient ID: Shane Zuñiga is a 49 y.o. male 1970 Subjective: Shane Zuñiga presents for initial evaluation of Type 1 diabetes Patient has had diabetes for 40.5 years. Diagnosed in Oct 08, 1978 Patient has taken Insulin for 40.5 years Has been on Medtronic insulin pump for 10-12 years. He has been followed by KAMI España at [facility]. Allergies Allergen Reactions Animal Dander Hives and Shortness Of Breath Cashew Nut Anaphylaxis and Hives Throat closes Zapata Shortness Of Breath and Itching Phenergan [Promethazine] GI Intolerance Rice Shortness Of Breath All grains Current Outpatient Medications Medication Sig Dispense Refill aspirin 81 MG EC tablet Take 81 mg by mouth daily . DULoxetine (CYMBALTA) 60 MG capsule Take 60 mg by mouth daily . enalapril (VASOTEC) 20 MG tablet Take 20 mg by mouth daily . insulin aspart U-100 (NovoLOG) 100 unit/mL injection Inject 40 Units under the skin daily . omeprazole (PRILOSEC) 40 MG capsule Take 40 mg by mouth daily . theophylline (ESEQUIEL-24) 300 MG 24 hr capsule Take 300 mg by mouth daily . triamcinolone (NASACORT) 55 mcg nasal inhaler Instill 2 sprays into each nostril daily . No current facility-administered medications for this visit. Past Medical History: Diagnosis Date Depression Diabetes mellitus type I (HCC) Frozen shoulder syndrome right, resolved with PT Past Surgical History: Procedure Laterality Date WISDOM TOOTH EXTRACTION Social History Socioeconomic History Marital status: Spouse name: Not on file Number of children: Not on file Years of education: Not on file Highest education level: Not on file Occupational History Not on file Social Needs Financial resource strain: Not on file Food insecurity: Worry: Not on file Inability: Not on file Transportation needs: Medical: Not on file Non-medical: Not on file Tobacco Use Smoking status: Never Smoker Smokeless tobacco: Never Used Substance and Sexual Activity Alcohol use: Yes Comment: rare Drug use: Never Sexual activity: Not on file Lifestyle Physical activity: Days per week: Not on file Minutes per session: Not on file Stress: Not on file Relationships Social connections: Talks on phone: Not on file Gets together: Not on file Attends scientology service: Not on file Active member of club or organization: Not on file Attends meetings of clubs or organizations: Not on file Relationship status: Not on file Other Topics Concern Not on file Social History Narrative Not on file Review of Systems: Review of Systems Constitutional: Negative for appetite change, fatigue and unexpected weight change. HENT: Negative for trouble swallowing and voice change. Eyes: Negative for visual disturbance. Respiratory: Negative for cough, chest tightness, shortness of breath and wheezing. Cardiovascular: Negative for chest pain, palpitations and leg swelling. Gastrointestinal: Negative for abdominal pain, constipation, diarrhea, nausea and vomiting. Endocrine: Negative for polydipsia, polyphagia and polyuria. Genitourinary: Negative for dysuria and frequency. Musculoskeletal: Negative for arthralgias, gait problem and myalgias. Skin: Negative for rash and wound. Neurological: Negative for weakness, numbness and headaches. Psychiatric/Behavioral: Negative for sleep disturbance. The following portions of the patient's history were reviewed and updated as appropriate: allergies, current medications, past family history, past medical history, past social history, past surgicalhistory and problem list. Objective: BP 123/79 Pulse 60 Ht 5' 11 Wt 96.6 kg (213 lb) BMI 29.71 kg/m Wt Readings from Last 3 Encounters: 04/25/19 96.6 kg (213 lb) Physical Exam: Physical Exam General: alert, appears stated age and cooperative Eyes: conjunctivae/corneas clear. PERRL, EOM's intact. Neck: no adenopathy, supple, symmetrical, trachea midline. Thyroid: No thyromegaly appreciated Lung: clear to auscultation bilaterally Heart: regular rate and rhythm, S1, S2 normal, no murmur, click, rub or gallop Extremities: extremities normal, atraumatic, no cyanosis or edema Feet: Dry skin, Bilateral Feet: warm, good capillary refill and normal DP. Monofilament exam Normal, bilateral lower extremities. Neuro: normal without focal findings, mental status, speech normal, alert and oriented x3 and RAUL Lab Review Lab Results Component Value Date HGBA1C 6.7 04/21/2019 Creatinine (mg/dL) Date Value 04/21/2019 0.95 No results found for: CHOL, TRIG, HDL, LDLCALC, LDL Lab Results Component Value Date TSH 3.04 04/21/2019 Lab Results Component Value Date WBC 6.00 04/21/2019 HGB 15.0 04/21/2019 HCT 43.8 04/21/2019 PLT 239 04/21/2019 Date: 04/21/2019 Hgb A1c: 6.7% Creat: 0.95, sodium 140, potassium 4.4, estimated GFR 90 AST 29, ALT 32 Total cholesterol 163, triglycerides 58, HDL 47, LDL 104 TSH 3.04 WBC 6.00, hemoglobin 15.0, hematocrit 43.8, platelet count 239,000 Microalbumin/creatinine Ratio: 6.0 Assessment/Plan: Dx: SNOMED CT(R) 1. Type 1 diabetes mellitus with diabetic autonomic neuropathy (HCC) TYPE 1 DIABETES MELLITUS LipidPanel Hemoglobin A1c Comprehensive Metabolic Panel 2. Poor control type I diabetes mellitus (HCC) TYPE 1 DIABETES MELLITUS UNCONTROLLED Ambulatory referral to Endocrinology Type 1 diabetes, under good control Patient is currently managed with: Currently taking: Insulin Pump using Novolog insulin Current Hemoglobin A1C= 6.7% 04/21/19 Lab Results Component Value Date HGBA1C 6.7 04/21/2019 Weight trend: is stable Current diet: carbohydrate counting Current exercise: walking and active at work Current monitoring regimen: home blood tests - 8-10 times daily with Guardian sensor times daily Home blood sugar records: reviewed. Fasting BG: Pre-lunch BG: Pre-supper BG: Bedtime BG: Any episodes of hypoglycemia? yes - recent low BG with change in job to more active position NOTES:Diagnosed age 8 years. His only episode of DKA was at age 14 years; never in DKA since then. He uses a Dexcom sensor, which reports the readings on his phone; were unable to download these readings. He is consistent with using his Dexcom sensor. 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 He may be eligible for an upgrade on his insulin pump soon. He has not been using his bolus wizard feature of his pump recently. He recently started a new job and has been having low blood glucoses in the evening while at work; he has adjusted his basal rate down to 0.3 units/h while at work. We will program work and day off basal rates. PLAN: Program pump for standard pattern for work days, and Pattern A for days off. Program bolus Wizard so that he can start using for carbs and correction doses. 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 yes Enalapril Peripheral Neuropathy: Negative Denies symptoms associated with neuropathy (numbness and/or tingling) Autonomic Neuropathy: Positive Hypoglycemia unawareness. Does not sense low BG unless <50 mg/dl.Able to sense high BG. Other: Hyperlipidemia: Negative Currently taking: No lipid lowering agents. LFT's WNL. 04/21/19 AST 29, ALT 32; Total cholesterol 163, triglycerides 58, HDL 47, LDL 104 He wants to work on diet before considering statin; he was on statin in past. Lab Results Component Value Date AST 29 04/21/2019 ALT 32 04/21/2019 Lab Results Component Value Date EXTCHOL 163 04/21/2019 EXTTRIG 58 04/21/2019 EXTHDL 47 04/21/2019 EXTLDLCALC 104 04/21/2019 Hypertension: Negative . Currently taking: enalapril (Vasotec) BP: 123/79 Cardiac: Negative Experiencing chest pain No . Experiencing shortness of breath No History of No history of CAD Follows routinely with: Vascular: Negative History of None Feet: Last foot exam: 04/25/19 Follows with Podiatry: No Contact Agent: History of foot ulceration: No History of amputation: No Thyroid: Lab Results Component Value Date TSH 3.04 04/21/2019 Negative hx Other: Current pump settings: Basal rate: 0000--0.750 units/h 0300--0.625 0600--1.00 1200--0.600 2100--0.750 Insulin: Carbohydrate ratio: not set Insulin sensitivity: Not set Plan: 1. Rx changes: adjust pump settings: ( Changes in bold) Basal rate: Standard (Work days) 0000--0.750 units/h 0300--0.625 0600--1.00 1200--0.600 1400--0.3 2330--0.750 Pattern A 0000--0.750 units/h 0300--0.625 0600--1.00 1200--0.600 2100--0.750 Insulin: Carbohydrate ratio: 0000--15 Insulin sensitivity: 0000--30 2. Education: Reviewed ABCs of diabetes management (respective goals in parentheses): A1C (7.0-8.0), blood pressure (<130/80), and cholesterol (LDL <100). 3. Compliance at present is estimated to be good. Efforts to improve compliance (if necessary) willbe directed at dietary modifications: accurate carb counting and regular blood sugar monitorin-6 times daily. 4. Follow up: 4 months 5. Record blood sugar readings as instructed. Call if BG consistently <70 or >250. [phone] Patient has been checking blood glucoses 4 times daily for the past 90 days. Patient needs to continue checking blood glucoses 4 times daily. Blood glucose readings are used to adjust medication or insulin doses for meals, monitor dietary compliance, and adjust for high or low blood glucoses by patient on a daily basis. Blood glucose readings are reviewed at office visits for adjustment in medication regimen and assistance with dietary management, and other self- management issues including exercise, etc. Prognosis: Good. Duration of need for diabetes testing equipment: Permanent #150 strips/month prescribed. 6. Bring blood sugar meter to follow up appointment. Orders Placed This Encounter Procedures Lipid Panel Hemoglobin A1c Comprehensive Metabolic Panel Jb SCHNEIDER documented in this encounter* Nelida Blanco, MUSIC EXECUTIVE - 09/02/2019 9:09 AM EDT Patient ID: Shane Zuñiga is a 49 y.o. male 1970 Subjective: Shane Zuñiga presents for follow up of Type 1 diabetes Patient has had diabetes for 40.5 years. Diagnosed in Oct 08, 1978 Patient has taken Insulin for 40.5 years Has been on Medtronic insulin pump for 10-12 years. He had been followed by KAMI España at [facility]. Allergies Allergen Reactions Animal Dander Hives and Shortness Of Breath Cashew Nut Anaphylaxis and Hives Throat closes Zapata Shortness Of Breath and Itching Phenergan [Promethazine] GI Intolerance Rice Shortness Of Breath All grains Outpatient Medications Marked as Taking for the 09/02/19 encounter (Office Visit) with Nelida Blanco CNP: aspirin 81 MG EC tablet, Take 81 mg by mouth daily . DULoxetine (CYMBALTA) 60 MG capsule, Take 60 mg by mouth daily . enalapril (VASOTEC) 20 MG tablet, Take 20 mg by mouth daily . insulin aspart U-100 (NovoLOG) 100 unit/mL injection, Inject 40 Units under the skin daily . magnesium 250 mg Tab, Take 1 tablet by mouth daily . multivit-minerals/FA/lycopene (ONE-A-DAY MEN'S ORAL), Take 1 tablet by mouth daily . omeprazole (PRILOSEC) 40 MG capsule, Take 40 mg by mouth daily . theophylline (ESEQUIEL-24) 300 MG 24 hr capsule, Take 300 mg by mouth daily . triamcinolone (NASACORT) 55 mcg nasal inhaler, Instill 2 sprays into each nostril daily . Review of Systems: Review of Systems Constitutional: Negative for appetite change, fatigue and unexpected weight change. HENT: Negative for trouble swallowing and voice change. Eyes: Negative for visual disturbance. Respiratory: Negative for cough, chest tightness, shortness of breath and wheezing. Cardiovascular: Negative for chest pain, palpitations and leg swelling. Gastrointestinal: Negative for abdominal pain, constipation, diarrhea, nausea and vomiting. Endocrine: Negative for polydipsia, polyphagia and polyuria. Genitourinary: Negative for dysuria and frequency. Musculoskeletal: Negative for arthralgias, gait problem and myalgias. Skin: Negative for rash and wound. Neurological: Negative for weakness, numbness and headaches. Psychiatric/Behavioral: Negative for sleep disturbance. The following portions of the patient's history were reviewed and updated as appropriate: allergies, current medications, past family history, past medical history, past social history, past surgicalhistory and problem list. Objective: BP 129/87 Pulse (!) 57 Ht 5' 11.04 Wt 91.6 kg (202 lb) BMI 28.14 kg/m Wt Readings from Last 3 Encounters: 09/02/19 91.6 kg (202 lb) 04/25/19 96.6 kg (213 lb) Physical Exam: General: alert, appears stated age and cooperative Eyes: conjunctivae/corneas clear. PERRL, EOM's intact. Neck: no adenopathy, supple, symmetrical, trachea midline. Thyroid: No thyromegaly appreciated Lung: clear to auscultation bilaterally Heart: regular rate and rhythm, S1, S2 normal, no murmur, click, rub or gallop Extremities: extremities normal, atraumatic, no cyanosis or edema Feet: Dry skin, Bilateral Feet: warm, good capillary refill and normal DP. Monofilament exam Normal, bilateral lower extremities. Neuro: normal without focal findings, mental status, speech normal, alert and oriented x3 and RAUL Lab Review Lab Results Component Value Date HGBA1C 7.0 09/01/2019 Creatinine (mg/dL) Date Value 09/01/2019 0.95 No results found for: CHOL, TRIG, HDL, LDLCALC, LDL Lab Results Component Value Date TSH 3.04 04/21/2019 Lab Results Component Value Date WBC 6.00 04/21/2019 HGB 15.0 04/21/2019 HCT 43.8 04/21/2019 PLT 239 04/21/2019 Date: 09/01/19 *labs reviewed 09/02/19 Hgb A1c: 7.0% Creat: 0.95; eGFR: 89 AST: 42; ALT: 47 K: 3.9 Tchol: 154; Tri ; HDL: 57 ; LDL: 90 04/21/2019 Hgb A1c: 6.7% Creat: 0.95, sodium 140, potassium 4.4, estimated GFR 90 AST 29, ALT 32 Total cholesterol 163, triglycerides 58, HDL 47, LDL 104 TSH 3.04 WBC 6.00, hemoglobin 15.0, hematocrit 43.8, platelet count 239,000 Microalbumin/creatinine Ratio: 6.0 Assessment/Plan: Dx: 1. Type 1 diabetes mellitus with diabetic autonomic neuropathy (HCC) Type 1 diabetes, under good control Patient is currently managed with: Currently taking: Insulin Pump using Novolog insulin Current Hemoglobin A1C= 6.7% 04/21/19 Lab Results Component Value Date HGBA1C 7.0 09/01/2019 HGBA1C 6.7 04/21/2019 Weight trend: has decreased 11 lbs. since starting more active work. Current diet: carbohydrate counting Current exercise: walking and active at work Current monitoring regimen: home blood tests - 8-10 times daily with Guardian sensor times daily Home blood sugar records: reviewed. Fasting BG: Pre-lunch BG: Pre-supper BG: Bedtime BG: Any episodes of hypoglycemia? yes - recent low BG with change in job to more active position NOTES Diagnosed age 8 years. His only episode of DKA was at age 14 years; never in DKA since then. 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 He may be eligible for an upgrade on his insulin pump soon. He has not been using his bolus wizard feature of his pump recently. He recently started a new job and has been having low blood glucoses in the evening which have improved, but continues to be an issue with his increased activity. We will program work and day off basal rates. PLAN: Program pump for pattern A for work days, and Standard for days off. Program bolus Wizard so that he can start using for carbs and correction doses. 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 yes Enalapril Peripheral Neuropathy: Negative Denies symptoms associated with neuropathy (numbness and/or tingling) Autonomic Neuropathy: Positive Hypoglycemia unawareness. Does not sense low BG unless <50 mg/dl.Able to sense high BG. Other: Hyperlipidemia: Negative Currently taking: No lipid lowering agents. LFT's WNL. 09/01/19 AST 42, ALT 47; Total cholesterol 154, triglycerides 37, HDL 57, LDL 90 He wants to work on diet before considering statin; he was on statin in past. Lab Results Component Value Date AST 42 09/01/2019 ALT 47 09/01/2019 Lab Results Component Value Date EXTCHOL 154 09/01/2019 EXTTRIG 37 09/01/2019 EXTHDL 57 09/01/2019 EXTLDLCALC 90 09/01/2019 Hypertension: Negative . Currently taking: enalapril (Vasotec) BP: 129/87 Cardiac: Negative Experiencing chest pain No . Experiencing shortness of breath No History of No history of CAD Follows routinely with: Vascular: Negative History of None Feet: Last foot exam: 04/25/19 Follows with Podiatry: No Contact Agent: History of foot ulceration: No History of amputation: No Thyroid: Lab Results Component Value Date TSH 3.04 04/21/2019 Negative hx Other: Current pump settings: Basal rate: Standard (Work days) 0000--0.750 units/h 0300--0.625 0600--1.00 1200--0.600 1400--0.3 2330--0.750 Insulin: Carbohydrate ratio: not set Insulin sensitivity: Not set Plan: 1. Rx changes: adjust pump settings: ( Changes in bold) Basal rate: Standard (Off days) 0000--0.750 units/h 0300--0.625 0600--1.000 1200--0.600 1400--0.300 2330--0.750 Pattern A 0000--0.750 units/h 0300--0.625 0600--1.000 1200--0.575 1400--0.250 2100--0.750 Insulin: Carbohydrate ratio: 0000--15 Insulin sensitivity: 0000--30 2. Education: Reviewed ABCs of diabetes management (respective goals in parentheses): A1C (7.0-8.0), blood pressure (<130/80), and cholesterol (LDL <100). 3. Compliance at present is estimated to be good. Efforts to improve compliance (if necessary) willbe directed at dietary modifications: accurate carb counting and regular blood sugar monitorin-6 times daily. 4. Follow up: 4 months 5. Record blood sugar readings as instructed. Call if BG consistently <70 or >250. [phone] Patient has been checking blood glucoses 4 times daily for the past 90 days. Patient needs to continue checking blood glucoses 4 times daily. Blood glucose readings are used to adjust medication or insulin doses for meals, monitor dietary compliance, and adjust for high or low blood glucoses by patient on a daily basis. Blood glucose readings are reviewed at office visits for adjustment in medication regimen and assistance with dietary management, and other self- management issues including exercise, etc. Prognosis: Good. Duration of need for diabetes testing equipment: Permanent #150 strips/month prescribed. 6. Bring blood sugar meter to follow up appointment. Orders Placed This Encounter Procedures Hemoglobin A1c documented in this encounter* Nelida Blanco CNP - 11/04/2020 11:59 AM EST Patient ID: Shane Zuñiga is a 50 y.o. male 1970 Subjective: Shane Zuñiga presents for follow up of Type 1 diabetes Patient has had diabetes for 40.5 years. Diagnosed in Oct 08, 1978 Patient has taken Insulin for 40.5 years Since patient's last appointment in 02/2020 he started a new insulin pump, a T slim with a Dexcom CGM. Patient states for the most part he is enjoying his new system. He denies any consistent hyper orhypoglycemia. His most recent hemoglobin A1c is stable at 6.4% 11/02/20 Allergies Allergen Reactions Animal Dander Hives and Shortness Of Breath Cashew Nut Anaphylaxis and Hives Throat closes Zapata Shortness Of Breath and Itching Phenergan [Promethazine] GI Intolerance Rice Shortness Of Breath All grains Outpatient Medications Marked as Taking for the 11/04/20 encounter (Office Visit) with Nelida Blanco CNP: aspirin 81 MG EC tablet, Take 81 mg by mouth daily . atorvastatin (LIPITOR) 20 MG tablet, Take 1 (one) tablet (20 mg total) by mouth daily . DULoxetine (CYMBALTA) 60 MG capsule, Take 60 mg by mouth daily . enalapril (VASOTEC) 20 MG tablet, Take 20 mg by mouth daily . insulin aspart U-100 (NovoLOG) 100 unit/mL injection, Use as directed with insulin pump, approx 60 units daily . magnesium 250 mg Tab, Take 1 tablet by mouth daily . multivit-minerals/FA/lycopene (ONE-A-DAY MEN'S ORAL), Take 1 tablet by mouth daily . omeprazole (PRILOSEC) 40 MG capsule, Take 40 mg by mouth daily . theophylline (ESEQUIEL-24) 300 MG 24 hr capsule, Take 300 mg by mouth daily . triamcinolone (NASACORT) 55 mcg nasal inhaler, Instill 2 sprays into each nostril daily . Review of Systems: Review of Systems Constitutional: Negative for appetite change, fatigue and unexpected weight change. HENT: Negative for trouble swallowing and voice change. Eyes: Negative for visual disturbance. Respiratory: Negative for cough, chest tightness, shortness of breath and wheezing. Cardiovascular: Negative for chest pain, palpitations and leg swelling. Gastrointestinal: Negative for abdominal pain, constipation, diarrhea, nausea and vomiting. Endocrine: Negative for polydipsia, polyphagia and polyuria. Genitourinary: Negative for dysuria and frequency. Musculoskeletal: Negative for arthralgias, gait problem and myalgias. Skin: Negative for rash and wound. Neurological: Negative for weakness, numbness and headaches. Psychiatric/Behavioral: Negative for sleep disturbance. The following portions of the patient's history were reviewed and updated as appropriate: allergies, current medications, past family history, past medical history, past social history, past surgicalhistory and problem list. Objective: BP 134/80 Pulse (!) 59 Ht 5' 11.04 Wt 91.9 kg (202 lb 8 oz) BMI 28.21 kg/m Wt Readings from Last 3 Encounters: 11/04/20 91.9 kg (202 lb 8 oz) 07/07/20 89.5 kg (197 lb 6.4 oz) 09/02/19 91.6 kg (202 lb) Physical Exam: General: alert, appears stated age and cooperative Eyes: conjunctivae/corneas clear. PERRL, EOM's intact. Neck: no adenopathy, supple, symmetrical, trachea midline. Thyroid: No thyromegaly appreciated Lung: clear to auscultation bilaterally Heart: regular rate and rhythm, S1, S2 normal, no murmur, click, rub or gallop Extremities: extremities normal, atraumatic, no cyanosis or edema Feet: Dry skin, Bilateral Feet: warm, good capillary refill and normal DP. Monofilament exam Normal, bilateral lower extremities. Neuro: normal without focal findings, mental status, speech normal, alert and oriented x3 and RAUL Lab Review Lab Results Component Value Date HGBA1C 6.4 11/02/2020 Creatinine (mg/dL) Date Value 11/02/2020 0.96 No results found for: CHOL, TRIG, HDL, LDLCALC, LDL Lab Results Component Value Date TSH 4.11 11/02/2020 Lab Results Component Value Date WBC 6.70 07/05/2020 HGB 15.3 07/05/2020 HCT 45.8 07/05/2020 PLT 224 07/05/2020 11/02/20 *labs reviewed 11/04/20 Hgb A1c: 6.4% Creat: 0.96; eGFR: 89 AST: 27; ALT: 36 K: 3.8 Tchol: 121; Tri ; HDL: 52 ; LDL: 59 TSH: 4.11 ; FreeT4: 1.38 07/05/2020 Hemoglobin A1c 6.8% Creatinine 1.00, estimated GFR 84, K4.4 AST 29, ALT 39 T cholesterol 181, TG 52, HDL 55, LDL 116 Microalbumin/creatinine ratio: <5.0 09/01/19 Hgb A1c: 7.0% Creat: 0.95; eGFR: 89 AST: 42; ALT: 47 K: 3.9 Tchol: 154; Tri ; HDL: 57 ; LDL: 90 04/21/2019 Hgb A1c: 6.7% Creat: 0.95, sodium 140, potassium 4.4, estimated GFR 90 AST 29, ALT 32 Total cholesterol 163, triglycerides 58, HDL 47, LDL 104 TSH 3.04 WBC 6.00, hemoglobin 15.0, hematocrit 43.8, platelet count 239,000 Microalbumin/creatinine Ratio: 6.0 Assessment/Plan: Dx: 1. Type 1 diabetes mellitus with diabetic autonomic neuropathy (HCC) TSH T4, Free Hemoglobin A1c Comprehensive Metabolic Panel Type 1 diabetes, under good control Patient is currently managed with: Currently taking: Insulin Pump using Novolog insulin Current Hemoglobin A1C= 6.7% 04/21/19 Lab Results Component Value Date HGBA1C 6.4 11/02/2020 HGBA1C 6.8 07/05/2020 HGBA1C 7.0 09/01/2019 Weight trend: has decreased 5 lbs. Current diet: carbohydrate counting Current exercise: walking and active at work Current monitoring regimen: home blood tests - 8-10 times daily with Guardian sensor times daily Home blood sugar records: CGM reviewed. Fasting BG: Pre-lunch BG: Pre-supper BG: Bedtime BG: Any episodes of hypoglycemia? yes - less frequent when utilizing control IQ. In the last 3 weeks inocencia noted more frequent lows over the last 3 weeks since he has not had a Dexcom transmitter. . Using Dexcom CGM with alerts for low blood sugars. NOTES: Patient now working standard work hours, no longer needing second basal rate settings. 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 yes Enalapril Peripheral Neuropathy: Negative Denies symptoms associated with neuropathy (numbness and/or tingling) Autonomic Neuropathy: Positive Hypoglycemia unawareness. Does not sense low BG unless <50 mg/dl.Able to sense high BG. Other: Hyperlipidemia: Negative Currently taking: on atorvastatin. LFT's WNL. 11/02/20: Tchol: 121; Tri ; HDL: 52 ; LDL: 59 PLAN: CPM. Lab Results Component Value Date AST 27 11/02/2020 ALT 36 11/02/2020 Lab Results Component Value Date EXTCHOL 121 11/02/2020 EXTTRIG 51 11/02/2020 EXTHDL 52 11/02/2020 EXTLDLCALC 59 11/02/2020 Hypertension: Negative . Currently taking: enalapril (Vasotec) BP: 134/80 Cardiac: Negative Experiencing chest pain No . Experiencing shortness of breath No History of No history of CAD Follows routinely with: Vascular: Negative History of None Feet: Last foot exam: 11/04/20 Follows with Podiatry: No Contact Agent:0 History of foot ulceration: No History of amputation: No Thyroid: TSH elevated on most recent blood draw. Historically has been euthyroid. Plan will be to recheck TFTs. Lab Results Component Value Date TSH 4.11 11/02/2020 Negative Other: Current pump settings: Basal rate: Standard 0000--0.650 units/h 0300--0.550 0600--0.900 1200--0.600 1400--0.500 2330--0.600 Insulin: Carbohydrate ratio: 15 Insulin sensitivity: 30 Plan: 1. Rx changes: none Resume auto basal function of new TSlim pump with Dexcom sensor Patient warned regarding the risks associated with frequent hypoglycemia. Basal rate: Standard 0000--0.650 units/h 0300--0.500 0600--0.850 1200--0.600 1400--0.450 2330--0.600 Insulin: Carbohydrate ratio: 0000--15 Insulin sensitivity: 0000--30 2. Education: Reviewed ABCs of diabetes management (respective goals in parentheses): A1C (7.0-8.0), blood pressure (<130/80), and cholesterol (LDL <100). 3. Compliance at present is estimated to be good. Efforts to improve compliance (if necessary) willbe directed at dietary modifications: accurate carb counting and regular blood sugar monitorin-6 times daily. 4. Follow up: 4 months 5. Record blood sugar readings as instructed. Call if BG consistently <70 or >250. [phone] Patient has been checking blood glucoses 4 times daily for the past 90 days. Patient needs to continue checking blood glucoses 4 times daily. Blood glucose readings are used to adjust medication or insulin doses for meals, monitor dietary compliance, and adjust for high or low blood glucoses by patient on a daily basis. Blood glucose readings are reviewed at office visits for adjustment in medication regimen and assistance with dietary management, and other self- management issues including exercise, etc. Prognosis: Good. Duration of need for diabetes testing equipment: Permanent #150 strips/month prescribed. 6. Bring blood sugar meter to follow up appointment. Orders Placed This Encounter Procedures TSH T4, Free Hemoglobin A1c Comprehensive Metabolic Panel Electronically Signed by: Nelida Blanco CNP 11/04/20 1:03 PM documented in this encounter* Nelida Blanco CNP - 11/04/2020 11:59 AM EST Patient ID: Shane Zuñiga is a 50 y.o. male 1970 Subjective: Shane Zuñiga presents for follow up of Type 1 diabetes Patient has had diabetes for 40.5 years. Diagnosed in Oct 08, 1978 Patient has taken Insulin for 40.5 years Since patient's last appointment in 02/2020 he started a new insulin pump, a T slim with a Dexcom CGM. Patient states for the most part he is enjoying his new system. He denies any consistent hyper orhypoglycemia. His most recent hemoglobin A1c is stable at 6.4% 11/02/20 Allergies Allergen Reactions Animal Dander Hives and Shortness Of Breath Cashew Nut Anaphylaxis and Hives Throat closes Zapata Shortness Of Breath and Itching Phenergan [Promethazine] GI Intolerance Rice Shortness Of Breath All grains Outpatient Medications Marked as Taking for the 11/04/20 encounter (Office Visit) with Nelida Blanco CNP: aspirin 81 MG EC tablet, Take 81 mg by mouth daily . atorvastatin (LIPITOR) 20 MG tablet, Take 1 (one) tablet (20 mg total) by mouth daily . DULoxetine (CYMBALTA) 60 MG capsule, Take 60 mg by mouth daily . enalapril (VASOTEC) 20 MG tablet, Take 20 mg by mouth daily . insulin aspart U-100 (NovoLOG) 100 unit/mL injection, Use as directed with insulin pump, approx 60 units daily . magnesium 250 mg Tab, Take 1 tablet by mouth daily . multivit-minerals/FA/lycopene (ONE-A-DAY MEN'S ORAL), Take 1 tablet by mouth daily . omeprazole (PRILOSEC) 40 MG capsule, Take 40 mg by mouth daily . theophylline (ESEQUIEL-24) 300 MG 24 hr capsule, Take 300 mg by mouth daily . triamcinolone (NASACORT) 55 mcg nasal inhaler, Instill 2 sprays into each nostril daily . Review of Systems: Review of Systems Constitutional: Negative for appetite change, fatigue and unexpected weight change. HENT: Negative for trouble swallowing and voice change. Eyes: Negative for visual disturbance. Respiratory: Negative for cough, chest tightness, shortness of breath and wheezing. Cardiovascular: Negative for chest pain, palpitations and leg swelling. Gastrointestinal: Negative for abdominal pain, constipation, diarrhea, nausea and vomiting. Endocrine: Negative for polydipsia, polyphagia and polyuria. Genitourinary: Negative for dysuria and frequency. Musculoskeletal: Negative for arthralgias, gait problem and myalgias. Skin: Negative for rash and wound. Neurological: Negative for weakness, numbness and headaches. Psychiatric/Behavioral: Negative for sleep disturbance. The following portions of the patient's history were reviewed and updated as appropriate: allergies, current medications, past family history, past medical history, past social history, past surgicalhistory and problem list. Objective: BP 134/80 Pulse (!) 59 Ht 5' 11.04 Wt 91.9 kg (202 lb 8 oz) BMI 28.21 kg/m Wt Readings from Last 3 Encounters: 11/04/20 91.9 kg (202 lb 8 oz) 07/07/20 89.5 kg (197 lb 6.4 oz) 09/02/19 91.6 kg (202 lb) Physical Exam: General: alert, appears stated age and cooperative Eyes: conjunctivae/corneas clear. PERRL, EOM's intact. Neck: no adenopathy, supple, symmetrical, trachea midline. Thyroid: No thyromegaly appreciated Lung: clear to auscultation bilaterally Heart: regular rate and rhythm, S1, S2 normal, no murmur, click, rub or gallop Extremities: extremities normal, atraumatic, no cyanosis or edema Feet: Dry skin, Bilateral Feet: warm, good capillary refill and normal DP. Monofilament exam Normal, bilateral lower extremities. Neuro: normal without focal findings, mental status, speech normal, alert and oriented x3 and RAUL Lab Review Lab Results Component Value Date HGBA1C 6.4 11/02/2020 Creatinine (mg/dL) Date Value 11/02/2020 0.96 No results found for: CHOL, TRIG, HDL, LDLCALC, LDL Lab Results Component Value Date TSH 4.11 11/02/2020 Lab Results Component Value Date WBC 6.70 07/05/2020 HGB 15.3 07/05/2020 HCT 45.8 07/05/2020 PLT 224 07/05/2020 11/02/20 *labs reviewed 11/04/20 Hgb A1c: 6.4% Creat: 0.96; eGFR: 89 AST: 27; ALT: 36 K: 3.8 Tchol: 121; Tri ; HDL: 52 ; LDL: 59 TSH: 4.11 ; FreeT4: 1.38 07/05/2020 Hemoglobin A1c 6.8% Creatinine 1.00, estimated GFR 84, K4.4 AST 29, ALT 39 T cholesterol 181, TG 52, HDL 55, LDL 116 Microalbumin/creatinine ratio: <5.0 09/01/19 Hgb A1c: 7.0% Creat: 0.95; eGFR: 89 AST: 42; ALT: 47 K: 3.9 Tchol: 154; Tri ; HDL: 57 ; LDL: 90 04/21/2019 Hgb A1c: 6.7% Creat: 0.95, sodium 140, potassium 4.4, estimated GFR 90 AST 29, ALT 32 Total cholesterol 163, triglycerides 58, HDL 47, LDL 104 TSH 3.04 WBC 6.00, hemoglobin 15.0, hematocrit 43.8, platelet count 239,000 Microalbumin/creatinine Ratio: 6.0 Assessment/Plan: Dx: 1. Type 1 diabetes mellitus with diabetic autonomic neuropathy (HCC) TSH T4, Free Hemoglobin A1c Comprehensive Metabolic Panel Type 1 diabetes, under good control Patient is currently managed with: Currently taking: Insulin Pump using Novolog insulin Current Hemoglobin A1C= 6.7% 04/21/19 Lab Results Component Value Date HGBA1C 6.4 11/02/2020 HGBA1C 6.8 07/05/2020 HGBA1C 7.0 09/01/2019 Weight trend: has decreased 5 lbs. Current diet: carbohydrate counting Current exercise: walking and active at work Current monitoring regimen: home blood tests - 8-10 times daily with Guardian sensor times daily Home blood sugar records: CGM reviewed. Fasting BG: Pre-lunch BG: Pre-supper BG: Bedtime BG: Any episodes of hypoglycemia? yes - less frequent when utilizing control IQ. In the last 3 weeks hefranciss noted more frequent lows over the last 3 weeks since he has not had a Dexcom transmitter. . Using Dexcom CGM with alerts for low blood sugars. NOTES: Patient now working standard work hours, no longer needing second basal rate settings. 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 yes Enalapril Peripheral Neuropathy: Negative Denies symptoms associated with neuropathy (numbness and/or tingling) Autonomic Neuropathy: Positive Hypoglycemia unawareness. Does not sense low BG unless <50 mg/dl.Able to sense high BG. Other: Hyperlipidemia: Negative Currently taking: on atorvastatin. LFT's WNL. 11/02/20: Tchol: 121; Tri ; HDL: 52 ; LDL: 59 PLAN: CPM. Lab Results Component Value Date AST 27 11/02/2020 ALT 36 11/02/2020 Lab Results Component Value Date EXTCHOL 121 11/02/2020 EXTTRIG 51 11/02/2020 EXTHDL 52 11/02/2020 EXTLDLCALC 59 11/02/2020 Hypertension: Negative . Currently taking: enalapril (Vasotec) BP: 134/80 Cardiac: Negative Experiencing chest pain No . Experiencing shortness of breath No History of No history of CAD Follows routinely with: Vascular: Negative History of None Feet: Last foot exam: 11/04/20 Follows with Podiatry: No Contact Agent:0 History of foot ulceration: No History of amputation: No Thyroid: TSH elevated on most recent blood draw. Historically has been euthyroid. Plan will be to recheck TFTs. Lab Results Component Value Date TSH 4.11 11/02/2020 Negative Other: Current pump settings: Basal rate: Standard 0000--0.650 units/h 0300--0.550 0600--0.900 1200--0.600 1400--0.500 2330--0.600 Insulin: Carbohydrate ratio: 15 Insulin sensitivity: 30 Plan: 1. Rx changes: none Resume auto basal function of new TSlim pump with Dexcom sensor Patient warned regarding the risks associated with frequent hypoglycemia. Basal rate: Standard 0000--0.650 units/h 0300--0.500 0600--0.850 1200--0.600 1400--0.450 2330--0.600 Insulin: Carbohydrate ratio: 0000--15 Insulin sensitivity: 0000--30 2. Education: Reviewed ABCs of diabetes management (respective goals in parentheses): A1C (7.0-8.0), blood pressure (<130/80), and cholesterol (LDL <100). 3. Compliance at present is estimated to be good. Efforts to improve compliance (if necessary) willbe directed at dietary modifications: accurate carb counting and regular blood sugar monitorin-6 times daily. 4. Follow up: 4 months 5. Record blood sugar readings as instructed. Call if BG consistently <70 or >250. [phone] Patient has been checking blood glucoses 4 times daily for the past 90 days. Patient needs to continue checking blood glucoses 4 times daily. Blood glucose readings are used to adjust medication or insulin doses for meals, monitor dietary compliance, and adjust for high or low blood glucoses by patient on a daily basis. Blood glucose readings are reviewed at office visits for adjustment in medication regimen and assistance with dietary management, and other self- management issues including exercise, etc. Prognosis: Good. Duration of need for diabetes testing equipment: Permanent #150 strips/month prescribed. 6. Bring blood sugar meter to follow up appointment. Orders Placed This Encounter Procedures TSH T4, Free Hemoglobin A1c Comprehensive Metabolic Panel Electronically Signed by: Nelida Blanco CNP 11/04/20 1:03 PM documented in this encounter Assessments Diagnosis Type 1 diabetes mellitus with diabetic autonomic neuropathy (HCC)- Primary Poor control type I diabetes mellitus (HCC) Type I (juvenile type) diabetes mellitus without mention of complication, uncontrolled Diagnosis Type 1 diabetes mellitus with diabetic autonomic neuropathy (HCC)- Primary Diagnosis Type 1 diabetes mellitus with diabetic autonomic neuropathy (HCC)- Primary Advance Directives No Advanced Directives Records FoundDocuments on File Type Date Recorded Patient [employer] Expl anation Advance Directives and Living Will Documents on File Type Date Recorded Patient [employer] anation Advance Directives and Livin g Will 02/13/2022 2:55 PM Summary Purpose Family History No Family History Records FoundNo Family History Records Found Additional Source Comments Reason for Visit (unrecogniz ed section and content) Status Reason Specialty Diagnoses / Procedures Referred By Contact Referred To Contact Closed Specialty Services Required/Patient 's Best Interest Endocrinology Diagnoses Poor control type I diabetes mellitus (HCC) Yessi Cuevas MD [address] [place] [address] Hoa Zuluaga MD [address] [place] [address] Reason Comments Diabetes Mellitus Thyroid Problem Reason Comments Medication Refill Reason Comments Diabetes Mellitus Gap Closure (Health Maintenance) Ophthal mology Exam Never [id number] due on 03/08/2023 (unrecognized sect ion and content) No Status Records FoundNo Status Records Found INFORMATION SOURCE (unrecogn ized section and content) DATE CREATED AUTHOR AUTHOR'S ORGANIZ ATION 03/31/2023 [facility] (unrecognized sec tion and content) School Counsellor Relationship Specialty Start Date End Date Yessi Cuevas MD [address] [facility] [address] [place] [address] PCP - General Family Medicine 02/12/19 School Counsellor Relationship Specialty Start Date End Date Yessi Cuevas MD [address] [facility] [address] [place], [place] [id number] PCP - General Family Medicine 02/12/19 School Counsellor Relationship Specialty Start Date End Date Yessi Cuevas MD [address] [facility] [address] [place], [place] [id number] PCP - General Family Medicine 02/12/19 School Counsellor Relationship Specialty Start Date End Date Yessi Cuevas MD [address] [place] [address] PCP - General Family Medicine 02/12/19 School Counsellor Relationship Specialty Start Date End Date Yessi Cuevas MD [address] [facility] [address] [place], [place] [id number] PCP - General Family Medicine 02/12/19 School Counsellor Relationship Specialty Start Date End Date Yessi Cuevas MD [address] [facility] [address] [place] [address] PCP - General Family Medicine 02/12/19 School Counsellor Relationship Specialty Start Date End Date Yessi Cuevas MD [address] [place] [address] PCP - General Family Medicine 02/12/19 FOR RECORDS PERTAINING TO PATIENTS WHO ARE OR HAVE BEEN ENROLLED IN A CHEMICAL DEPENDENCY/SUBSTANCEABUSE PROGRAM, SOME INFORMATION MAY BE OMITTED. This clinical summary was aggregated from multiple sources. Caution should be exercised in using it in the provision of clinical care. This summary normalizes information from multiple sources, and as a consequence, information in this document may materially change the coding, format and clinical context of patient data. In addition, data may be omitted in some cases. CLINICAL DECISIONS SHOULD BE BASED ON THE PRIMARY CLINICAL RECORDS. [employer] provides no warranty or guarantee of the accuracy or completeness of information in this document.
[2023-11-26 10:27] LABS: Absolute Neutrophil Count 3.3 X10^3/uL (2.0-7.7); Basophil# 0.07 X10^3/uL; Basophil% 0.9 % (0-1); Eosinophil# 0.31 X10^3/uL; Eosinophils% 4.1 % (0-5); Hematocrit 46.1 % (40-54); Lymphocyte % 42.3 % (19-41); Mean Corp Hgb Conc 32.5 g/dL (32-36); Mean Corpuscular Hgb 29.2 pg (27.0-32.0); Mean Corpuscular Volume 89.7 fL (80-94); Mean Platelet Vol. 10.9 fl (6.2-12.0); Monocyte# 0.67 X10^3/uL; Monocyte% 8.9 % (0-10); NRBC Flagged by Analyzer 0 % (0-5); Neutrophil # 3.25 X10^3/uL (2.7-7.7); Platelet Count 299 K/mm3 (150-450); RBC Distribution Width CV 13.3 % (11.6-14.6); RBC Distribution Width SD 43.8 fl (35.1-43.9); Red Blood Count 5.14 M/mm3 (4.6-6.2); White Blood Count 7.6 K/mm3 (4.4-11.0)
[2023-11-26 10:48] LABS: Microalbumin,Random Urine 8.2 mg/L (NO RANGE EST.); Microalbumin:Creatinine Ratio 5.2 mg/g CRE (<30 mg/g CRE)
[2023-11-26 11:39] LABS: Hemoglobin A1c 6.4 % (3.8-5.6)
[2023-11-26 11:44] LABS: AST(SGOT) 28 U/L (15-37); Alanine Aminotransfer ALT/SGPT 32 U/L (16-61); Albumin, Serum 3.5 g/dL (3.2-5.0); Alkaline Phosphatase 82 U/L (45-117); Anion Gap 3 (5-15); BUN 16 mg/dL (7-18); BUN/Creat Ratio 17.3 RATIO (10-20); Chloride 109 mmol/L (98-107); Cholesterol 183 mg/dL (200); Creatinine, Serum 0.92 mg/dL (0.70-1.30); EST Glomerular Filtration Rate 91 mL/min (>60); Est Glom Filt Rate - Afr Amer 110 mL/min (>60); Globulin 3.6 g/dL (2.2-4.2); Glucose 39 mg/dL (74-106); High Density Lipoprotein 53 mg/dL; Potassium 3.7 mmol/L (3.5-5.1); Protein, Total 7.1 g/dL (6.4-8.2); Sodium Level 143 mmol/L (136-145); T4 Free Direct 1.06 ng/dL (0.76-1.46); Thyroid Stim Hormone (TSH) 2.89 uIU/mL (0.358-3.74); Triglycerides 46 mg/dL; Very Low Density Lipoprotein 9 mg/dL (5-40)
== END | disposition home or self-care (01) ==
PROVIDERS: PCP Family Medicine
DX: E10.43 Type 1 diabetes mellitus with diabetic autonomic (poly)neuropathy (principal)
CPT/HCPCS: 36415; 80053; 80061; 82043; 82570; 83036; 84439; 84443; 85025

== ENCOUNTER → 2024-05-23 | Outpatient (CLI) | payer OTHER, SELFPAY ==
[2024-05-23 18:12] LABS: AST(SGOT) 36 U/L (15-37); Alanine Aminotransfer ALT/SGPT 36 U/L (16-61); Albumin, Serum 3.4 g/dL (3.2-5.0); Alkaline Phosphatase 96 U/L (45-117); Anion Gap 9 (5-15); BUN 19 mg/dL (7-18); BUN/Creat Ratio 18.8 RATIO (10-20); Calcium,Total 9.1 mg/dL (8.5-10.1); Chloride 105 mmol/L (98-107); Creatinine, Serum 1.01 mg/dL (0.70-1.30); EST Glomerular Filtration Rate 82 mL/min (>60); Est Glom Filt Rate - Afr Amer 99 mL/min (>60); Globulin 3.5 g/dL (2.2-4.2); Glucose 73 mg/dL (74-106); Hemoglobin A1c 6.1 % (3.8-5.6); Potassium 3.8 mmol/L (3.5-5.1); Protein, Total 6.9 g/dL (6.4-8.2); Sodium Level 139 mmol/L (136-145); T4 Free Direct 0.97 ng/dL (0.76-1.46); Thyroid Stim Hormone (TSH) 3.86 uIU/mL (0.358-3.74)
== END | disposition home or self-care (01) ==
LOC: MTLAB 13:40
PROVIDERS: PCP Family Medicine
DX: E10.43 Type 1 diabetes mellitus with diabetic autonomic (poly)neuropathy (principal)
CPT/HCPCS: 36415; 80053; 83036; 84439; 84443

== ENCOUNTER → 2024-11-10 | Outpatient (CLI) | payer OTHER, SELFPAY ==
--- NOTE | 2024-11-10 10:28 | RAD_ITS ---
EXAM: XR RIGHT HAND COMPLETE, 3 OR MORE VIEWS CLINICAL INDICATION: arthritis TECHNIQUE: Frontal, lateral and oblique views of the right hand. COMPARISON: No relevant prior studies available. FINDINGS: BONES/JOINTS: Unremarkable. No acute fracture. No subluxation. Normal alignment. Preservation of the joint space. No sclerotic or destructive changes observed. SOFT TISSUES: Unremarkable. No soft tissue swelling or gas. No radiopaque foreign body. VASCULATURE: Small vessel arterial calcifications. RAD/Hand Min 3 Views IMPRESSION: No arthritic changes or other significant findings in the right hand. Electronically Signed: Marcos Ward MD at 1:45 EST ,
[2024-11-10 12:20] LABS: Absolute Lymphocyte Count 2.26 X10^3/uL (0.83-4.51); Basophil# 0.09 X10^3/uL; Basophil% 1.4 % (0-1); Eosinophil# 0.48 X10^3/uL; Eosinophils% 7.4 % (0-5); Hematocrit 45.5 % (40-54); Lymphocyte # 2.26 X10^3/ul (0.83-4.51); Mean Corpuscular Hgb 28.9 pg (27.0-32.0); Mean Corpuscular Volume 87.7 fL (80-94); Mean Platelet Vol. 10.9 fl (6.2-12.0); Monocyte# 0.63 X10^3/uL; Monocyte% 9.8 % (0-10); NRBC Flagged by Analyzer 0 % (0-5); Neutrophil # 2.99 X10^3/uL (2.7-7.7); Neutrophil % 46.2 % (47-70); Platelet Count 256 K/mm3 (150-450); RBC Distribution Width CV 14.3 % (11.6-14.6); RBC Distribution Width SD 45.1 fl (35.1-43.9); Red Blood Count 5.19 M/mm3 (4.6-6.2); White Blood Count 6.5 K/mm3 (4.4-11.0)
[2024-11-10 12:33] LABS: Erythrocyte Sedimentation Rate 10 mm/hr (0-20)
[2024-11-10 12:43] LABS: CRP < 2.90 mg/L (0.0-3.0); Rheumatoid Factor < 10.0 IU/mL (<15); Uric Acid 4.2 mg/dL (3.5-7.2)
[2024-11-11 11:07] LABS: ANTINUCLEAR ANTIBODIES DIRECT Negative (Negative)
== END | disposition home or self-care (01) ==
PROVIDERS: PCP Family Medicine; Referring Provider Family Medicine; Visit Provider Family Medicine
DX: M19.049 Primary osteoarthritis, unspecified hand (principal)
CPT/HCPCS: 36415; 73130; 84550; 85025; 85652; 86038; 86140; 86431

== ENCOUNTER → 2024-11-28 | Outpatient (CLI) | payer OTHER, SELFPAY ==
[2024-11-28 17:35] LABS: Absolute Lymphocyte Count 2.28 X10^3/uL (0.83-4.51); Absolute Neutrophil Count 3.7 X10^3/uL (2.0-7.7); Basophil% 1.4 % (0-1); Eosinophil# 0.65 X10^3/uL; Eosinophils% 8.8 % (0-5); Hemoglobin 14.4 g/dL (13.0-16.5); Lymphocyte # 2.28 X10^3/ul (0.83-4.51); Lymphocyte % 30.9 % (19-41); Mean Corp Hgb Conc 33.5 g/dL (32-36); Mean Corpuscular Hgb 29.5 pg (27.0-32.0); Mean Corpuscular Volume 88.1 fL (80-94); Mean Platelet Vol. 10.5 fl (6.2-12.0); Monocyte# 0.67 X10^3/uL; Monocyte% 9.1 % (0-10); NRBC Flagged by Analyzer 0 % (0-5); Neutrophil # 3.66 X10^3/uL (2.7-7.7); Neutrophil % 49.5 % (47-70); Platelet Count 268 K/mm3 (150-450); RBC Distribution Width CV 14.6 % (11.6-14.6); Red Blood Count 4.88 M/mm3 (4.6-6.2); White Blood Count 7.4 K/mm3 (4.4-11.0)
[2024-11-28 17:55] LABS: Hemoglobin A1c 6.4 % (3.8-5.6)
[2024-11-28 18:03] LABS: ALB/GLOB Ratio 0.9 RATIO (0.9-2.4); AST(SGOT) 43 U/L (15-37); Alanine Aminotransfer ALT/SGPT 49 U/L (16-61); Albumin, Serum 3.4 g/dL (3.2-5.0); Alkaline Phosphatase 90 U/L (45-117); Anion Gap 2 (5-15); BUN 20 mg/dL (7-18); BUN/Creat Ratio 18.5 RATIO (10-20); Calcium,Total 9.2 mg/dL (8.5-10.1); Chloride 110 mmol/L (98-107); Cholesterol 182 mg/dL (200); Creatinine, Serum 1.08 mg/dL (0.70-1.30); EST Glomerular Filtration Rate 76 mL/min (>60); Est Glom Filt Rate - Afr Amer 92 mL/min (>60); Globulin 3.6 g/dL (2.2-4.2); Glucose 94 mg/dL (74-106); High Density Lipoprotein 51 mg/dL; Sodium Level 140 mmol/L (136-145); T4 Free Direct 0.85 ng/dL (0.76-1.46); Triglycerides 119 mg/dL; Very Low Density Lipoprotein 24 mg/dL (5-40)
== END | disposition home or self-care (01) ==
LOC: MTLAB 15:51
PROVIDERS: PCP Family Medicine
DX: E10.43 Type 1 diabetes mellitus with diabetic autonomic (poly)neuropathy (principal)
CPT/HCPCS: 36415; 80053; 80061; 83036; 84439; 84443; 85025

== ENCOUNTER → 2025-05-28 | Outpatient (CLI) | payer OTHER, SELFPAY ==
[2025-05-28 20:29] LABS: AST(SGOT) 31 U/L (<=37); Alanine Aminotransfer ALT/SGPT 21 U/L (<=46); Albumin, Serum 4.1 g/dL (3.5-5.0); Alkaline Phosphatase 101 U/L (40-129); Anion Gap 14 (5-15); BUN 22 mg/dL (4-19); BUN/Creat Ratio 16.2 RATIO (10-20); Calcium,Total 9.8 mg/dL (7.6-11.0); Carbon Dioxide 22.5 mmol/L (21.0-32.0); Chloride 105 mmol/L (98-108); Globulin 3.2 g/dL (2.2-4.2); Glucose 41 mg/dL (70-99); Potassium 4.2 mmol/L (3.3-5.1)
== END | disposition home or self-care (01) ==
LOC: MTLAB 15:40
PROVIDERS: PCP Family Medicine; Referring Provider Nurse Practitioner Family; Visit Provider Nurse Practitioner Family
DX: E10.43 Type 1 diabetes mellitus with diabetic autonomic (poly)neuropathy (principal)
CPT/HCPCS: 36415; 80053; 83036; 84439; 84443

== ENCOUNTER → 2025-06-24 | Outpatient (CLI) | payer OTHER, SELFPAY ==
--- NOTE | 2025-06-24 14:46 | RAD_ITS ---
PROCEDURE: HIP, UNI W/ PELVIS 2-3 VIEWS 06/24/2025 REASON FOR EXAM: PAIN TECHNIQUE: HIP, UNI W/ PELVIS 2-3 VIEWS COMPARISON: None. RAD/HIP, UNI W/ Pelvis 2-3 Views IMPRESSION: At least mild Degenerative Changes Are Seen Of The Visualized Lower Lumbar Spin e. Minimal Sacroiliac Joint Degenerative Changes Are Noted. Hip Joints Appear Symmetric And Within Normal Range. No Evidence Of Femoral Head Osteonecrosis. No Fracture Or Dislocation Is Evident. If clinical concern persists, short-term follow-up imaging may be obtained to r ule out a currently occult fracture. Reading Location: [place] [address]
--- NOTE | 2025-06-24 14:46 | RAD_ITS ---
PROCEDURE: HIP, UNI W/ PELVIS 2-3 VIEWS 06/24/2025 REASON FOR EXAM: PAIN TECHNIQUE: HIP, UNI W/ PELVIS 2-3 VIEWS COMPARISON: None. RAD/HIP, UNI W/ Pelvis 2-3 Views IMPRESSION: At least mild Degenerative Changes Are Seen Of The Visualized Lower Lumbar Spin e. Minimal Sacroiliac Joint Degenerative Changes Are Noted. Hip Joints Appear Symmetric And Within Normal Range. No Evidence Of Femoral Head Osteonecrosis. No Fracture Or Dislocation Is Evident. If clinical concern persists, short-term follow-up imaging may be obtained to r ule out a currently occult fracture. Reading Location: [place] [address]
== END | disposition home or self-care (01) ==
LOC: MTRAD 14:45
PROVIDERS: PCP Family Medicine; Referring Provider Family Medicine; Visit Provider Family Medicine
DX: M25.559 Pain in unspecified hip (principal)
CPT/HCPCS: 73502

== ENCOUNTER → 2025-07-31 | Outpatient (CLI) | payer OTHER, SELFPAY ==
--- OUTSIDE RECORDS SUMMARY | 2025-07-31 07:40 | XMS RPT_ITS | CCD ---
Author Organization [facility] Care Team Providers Care Rat Exterminator Name Role Phone Omar OLIVA, Eva L Unavailable Unavailable Omar OLIVA, Eva L Unavailable Unavailable Yessi Cuevas Primary Care Provider Yessi Cuevas Primary Care Provider Mason SCHNEIDER, Yessi Rousseau Primary Care Provider Taco MENDEZ, Adriana Eason Unavailable [phone] Omar GEN, Eva L Unavailable Unavailable Omar BOMB SQUAD OFFICER, Eva L Unavailable Unavailable Ana Laura, Sherry L Unavailable Dr. Yessi Cuevas Primary Care Provider Dr. Yessi Cuevas Referring Provider MD Efrem Cardoza Attending Provider [phone] Moreno Nieves Attending Provider [phone] Yessi Cuevas MD Primary Care Provider Dr. Yessi Cuevas Primary Care Provider Dr. Shaheen Tsai Attending Provider YESSI CUEVAS Primary Care Unavailable NELIDA BLANCO Attending Unavailab YESSI Carrera Primary Care Unavailable NELIDA BLANCO Attending Unavailab YESSI Carrera Primary Care Unavailable NELIDA BLANCO Attending Unavailab YESSI Carrera Primary Care Unavailable NELIDA BLANCO Attending Unavailab YESSI Carrera Primary Care Unavailable BERNARDO WILSON Attending Unava Dr. Yessi Marti MD Primary Care Provider Alexys COHENCNelida Attending Provider Nelida Ness Referring Provider Dr. Bradford Finn MD Primary Care Provider Aakash SCHNEIDER, Dr. Felder Attending Provider Dr. Bradford Finn MD Referring Provider [phone] Nelida Blanco Referring Unavailable Nelida Blanco Attending Unavailable Jolliff, Yessi S Primary Care Unavailable Jolliff, Yessi S Referring Unavailable Jolliff, Yessi S Attending Unavailable Jolliff, Yessi S Primary Care Unavailable CHRISTY, AISHA Referring Unavailable CHRISTY, AISHA Attending Unavailable Jolliff, Yessi S Primary Care Unavailable Bradford Finn Referring Unavailable Bradford Finn Attending Unavailable Bradford Finn Primary Care Unavailable Yessi Cuevas Primary Care Provider Allergies Allergy Classification Reported Allergen(s) Allergy Type Date of Onset Reaction(s) Facility (7 sources) ipratropium Drug Allergy 08-09-20 [facility] Work Phone: (7 sources) Nuts (not including peanuts) drug allergy 08-09-20 12 [facility] Work Phone: (7 sources) promethazine Drug Allergy 08-09-20 12 [facility] Work Phone: (7 sources) shellfish, unspecified; Translations: [SHELLFISH] food allergy 08-09-20 12 [facility] Work Phone: (7 sources) strawberry; Translations: [STRAWBERRIES] food allergy 08-09-20 12 [facility] Work Phone: (7 sources) wheat; Translations: [WHEAT] food allergy 08-09-20 12 [facility] Work Phone: (20 sources) cashew nut allergenic extract; Translations: [CASHEW NUT] Drug Allergy 04-16-20 19 Anaphylaxis, Hives [facility] (20 sources) [place] - fruit; Translations: [ORANGE] Propensity to adverse reactions to drug 05-29-20 19 Shortness Of Breath, Itching [facility] (20 sources) Promethazine; Translations: [PROMETHAZINE] Drug Allergy 04-16-20 GI Intolerance [facility] (20 sources) rice allergenic extract; Translations: [RICE] Drug Allergy 04-16-20 Shortness Of Breath [facility] (20 sources) Animal Dander; Translations: [ANIMAL DANDER] Propensity to adverse reactions to drug 04-16-20 Hives, Shortness Of Breath [facility] (10 sources) Promethazine; Translations: [promethazine HCl] Drug Allergy 01-12-20 10 Other [facility] (9 sources) nut - unspecified; Translations: [nut - unspecified] Allergy to substance 04-29-20 20 Anaphylaxis [facility] Medications Current Medications Medication Drug Class(es) Dates Sig (Normalized) Sig (Original) amoxicillin 875 mg / clavulanate 125 mg oral tablet (1 source) Penicillin-class Antibacterial Start: 07-12-2025 End: 07-19-2025 take 1 tablet by mouth twice daily amoxicillin-clav ulanate potassium (AUGMENTIN) 875-125 mg per tablet Take 1 tablet by mouth two times a day for 7 days. 14 tablet 07/12/2025 07/19/2025 Active aspirin 81 mg oral tablet (20 sources) Platelet Aggregation Inhibitor, Nonsteroidal Anti-inflammatory Drug Start: 02-02-2006 take 1 capsule by mouth once daily Aspirin 81 mg Capsule Active 81 mg PO DAILY February 17, 2022 12:00am take 1 tablet by mouth once cherie y aspirin 81 MG EC tablet Take 1 (one) tablet (81 mg total) by mouth daily . Active atorvastatin 20 mg oral tablet (20 sources) HMG-CoA Reductase Inhibitor Start: 09-19-2021 End: 03-23-2025 take 1 tablet by mouth once daily atorvastatin (LIPITOR) 20 mg tablet Take 20 mg by mouth once daily. 02/17/2022 Active Start: 07-07-2020 End: 07-07-2021 take 1 tablet by mouth once daily atorvastatin (LIPITOR) 20 MG tablet Indications: Type 1 diabetes mellitus with diabetic autonomic neuropathy (HCC) Take 1 (one) tablet (20 mg total) by mouth daily . 90 tablet 3 07/07/2020 07/07/2021 Active dicyclomine hydrochloride 20 mg oral tablet (7 sources) Anticholinergic Start: 02-17-2022 take 1 tablet by mouth four times daily as needed for pain Dicyclomine 20 mg tablet Active 20 mg PO 4 TIMES DAILY NEEDED as needed for Abdominal pain/spasm 28 0 February 17, 2022 3:05am DULoxetine 60 mg delayed release oral capsule (20 sources) Serotonin and Norepinephrine Reuptake Inhibitor Start: 04-29-2020 take 1 capsule by mouth once daily Duloxetine 60 MG capsule Active 60 mg PO DAILY April 29, 2020 12:00am [id number] 0.3 ml EPINEPHrine 1 mg/ml auto-injector (18 sources) alpha-Adrenergic Agonist, beta-Adrenergic Agonist, Catecholamine Start: 08-26-2015 inject 0.3 mg by intramuscular injection once Epinephrine 0.3 MG syringe Active 0.3 mg IM ONE TIME 2 0 August 26, 2015 12:00am Start: 08-09-2012 End: 01-27-2014 EPIPEN PELON 1:1000 as direct ed EPINEPHRINE PELON [id number] Latanya Gatica Flash Glucose Scanning Reade r (Freestyle Bella 10 Day [place]) misc (8 sources) Start: 12-10-2017 Flash Glucose Scanning [place] (Freestyle Bella 10 Day [place]) misc Active 0 .ROUTE .MEDSUPPLY December 10, 2017 11:24am As directed Start: 12-10-2017 Flash Glucose Scanning [place] (Freestyle Bella 10 Day [place]) misc Active 0 .ROUTE .MEDSUPPLY 1 0 December 10, 2017 1:00am Type 1 diabetes mellitus without complications As directed Start: 12-10-2017 Flash Glucose Scanning [place] (Freestyle Bella 10 Day [place]) misc Active 0 .ROUTE .MEDSUPPLY December 10, 2017 12:00am As directed Start: 12-10-2017 Flash Glucose Scanning [place] (Freestyle Bella 10 Day [place]) misc Active 0 .ROUTE .MEDSUPPLY December 10, 2017 1:00am As directed Flash Glucose Sensor (Freest yle Bella 10 Day Sensor) kit (8 sources) Start: 12-10-2017 Flash Glucose Sensor (Freestyle Bella 10 Day Sensor) kit Active 0 .ROUTE .MEDSUPPLY December 10, 2017 11:24am As directed Start: 12-10-2017 Flash Glucose Sensor (Freestyle Bella 10 Day Sensor) kit Active 0 .ROUTE .MEDSUPPLY 3 December 10, 2017 1:00am As directed Start: 12-10-2017 Flash Glucose Sensor (Freestyle Bella 10 Day Sensor) kit Active 0 .ROUTE .MEDSUPPLY December 10, 2017 12:00am As directed Start: 12-10-2017 Flash Glucose Sensor (Freestyle Bella 10 Day Sensor) kit Active 0 .ROUTE .MEDSUPPLY 3 December 10, 2017 1:00am As directed fluticasone propionate 0.05 mg/actuat metered dose nasal spray (1 source) Corticosteroid take 1 spray(s) nasal route once daily fluticasone (FLONASE) 50 mcg/actuation nasal spray Use 1 [place] in each nostril once daily. Active glucagon 3 mg nasal powder (12 sources) Antihypoglycemic Agent Start: 03-28-20 End: 05-26-20 glucagon (Baqsimi) 3 mg/actuation [place] Administer 1 (one) spray into one nostril as needed (hypoglycemia) . 2 each 3 05/26/2024 Active Start: 11-28-2010 glucagon, buddy n recombinant, (GLUCAGON EMERGENCY) 1 mg INJECTION injection Indications: Type I (juvenile type) diabetes mellitus with neurological manifestations, uncontrolled(250.63) Inject one(1) mg as needed for insulin shock. 2 Each 1 11/28/2010 Active 3 ml insulin glargine 100 unt/ml pen injector (1 source) Insulin Analog Start: 11-28-2010 insulin glargi ne (LANTUS SOLOSTAR) 100 unit/mL (3 mL) SUBCUTANEOUS InPn use as directed if pump fails 5 Pen 1 11/28/2010 Active insulin aspart, human 100 unt/ml injectable solution (20 sources) Insulin Analog Start: 07-07-2020 insulin aspart U-100 (NovoLOG) 100 unit/mL injection Use as directed with insulin pump, approx 60 units daily . 60 mL 3 07/07/2020 Active Start: 01-29-2020 Insulin Aspart U-100 100 unit/mL solution Active 0 SC DAILY January 29, 2020 12:00am subcut daily on insulin pump. novolog Start: 10-01-2014 inject 9 doses by ventura bcutaneous injection once daily insulin aspart (NOVOLOG) 100 unit/mL soln Inject subcutaneously. as directed in insulin pump up to 90 units daily 9 Vial 3 10/01/2014 Active inject 40 [IU] by ventura bcutaneous injection once daily insulin aspart U-100 (NovoLOG) 100 unit/mL injection Inject 40 Units under the skin daily . 0 Active levothyroxine sodium 0.05 mg oral tablet (18 sources) l-Thyroxine Start: 11-04-2020 End: 06-01-2026 levothyroxine (SYNTHROID) 50 mcg tablet Take 50 mcg by mouth. 06/01/2025 06/01/2026 Active Magnesium (20 sources) Magnesium 250 mg tab Take 1 tablet by mouth. Active take 1 tablet by mouth once cherie y magnesium 250 mg Tab Take 1 (one) tablet (250 mg total) by mouth daily . Active take 1 tablet by mouth once cherie y magnesium 250 mg Tab Take 1 (one) tablet (250 mg total) by mouth daily . 0 Active take 1 tablet by mouth once cherie y magnesium 250 mg Tab Take 1 tablet by mouth daily . 0 Active multivit-minerals/FA/lycopen e (ONE-A-DAY MEN'S ORAL) (19 sources) take 1 tablet by mouth once daily multivit-minerals/FA/lycopene (ONE-A-DAY MEN'S ORAL) Take 1 tablet by mouth daily . Active take 1 tablet by stevo th once daily multivit-minerals/FA/lycopene (ONE-A-DAY MEN'S ORAL) Take 1 tablet by mouth daily . 0 Active naproxen sodium 220 mg oral tablet (1 source) Nonsteroidal Anti-inflammatory Drug Start: 09-21-2009 naproxen sodium(ALEVE 220 MG TAB) Indications: Type I (juvenile type) diabetes mellitus with neurological manifestations, uncontrolled(250.63) as necessary 0 09/21/2009 Active omeprazole 20 mg delayed release oral capsule (20 sources) Proton Pump Inhibitor take 1 capsule by mouth twice daily omeprazole (PRILOSEC) 20 mg capsule Take 20 mg by mouth twice daily. Active take 1 capsule by mouth once [place] ly omeprazole (PRILOSEC) 40 MG capsule Take 1 (one) capsule (40 mg total) by mouth daily . Active ondansetron 4 mg disintegrating oral tablet (7 sources) Serotonin-3 Receptor Antagonist Start: 02-17-2022 take 1 tablet by mouth three times daily as needed for nausea and vomiting Ondansetron 4 mg tablet,disintegrating Active 4 mg PO THREE TIMES A DAY as needed for nausea and vomiting 21 0 February 17, 2022 3:04am subcutaneous insulin pump (t:slim X2 Insulin Pump) Misc (4 sources) subcutaneous ins ulin pump (t:slim X2 Insulin Pump) Misc by Miscellaneous route continuous . Active theophylline 300 mg extended release oral capsule (20 sources) Methylxanthine Start: 04-19-2010 take 1 capsule by mouth once daily, then take 1 capsule by mouth every twenty-four hours Theophylline (Esequiel-24) 300 mg capsule,extended release 24hr Active 300 mg PO DAILY February 17, 2022 12:00am Completed/Discontinued Medications Medication Drug Class(es) Dates Sig (Normalized) Sig (Original) amoxicillin (2 sources) Penicillin-class Antibacterial AMOXICILLIN CAPS AMOXICILLIN CAPS [id number] Adriana España NP beclomethasone dipropionate 0.042 mg/actuat metered dose nasal spray (14 sources) Corticosteroid Start: 08-09-2012 End: 01-27-2014 BECONASE AQ 42 MCG/SPRAY SUSP 2 sprays daily BECLOMETHASONE DIPROP MONOHYD [id number] Deonte Richter enalapril maleate 20 mg oral tablet (20 sources) Angiotensin Converting Enzyme Inhibitor Start: 07-15-2012 ENALAPRIL MALEATE 20 MG TABS daily ENALAPRIL MALEATE [id number] Latanya Gatica EPINEPHRINE PELON (4 sources) Start: 08-09-2012 EPIPEN PELON 1:1000 as directed EPINEPHRINE PELON [id number] Latanya Gatica Start: 08-09-2012 End: 01-27-2014 EPIPEN PELON 1:1000 as direct ed EPINEPHRINE PELON [id number] Deonte Richter esomeprazole 40 mg delayed release oral capsule (14 sources) Proton Pump Inhibitor Start: 08-09-2012 End: 04-23-2017 NEXIUM 40 MG CPDR twice daily ESOMEPRAZOLE MAGNESIUM [id number] Latanya Gatica insulin lispro 100 unt/ml injectable solution (7 sources) Insulin Analog Start: 08-09-2012 HUMALOG 100 UN IT/ML SOLN daily INSULIN LISPRO (HUMAN) [id number] Latanya Gatica Start: 08-09-2012 HUMALOG 100 UN IT/ML SOLN daily INSULIN LISPRO (HUMAN) [id number] Latanya Gatica loratadine 10 mg oral tablet (14 sources) Start: 08-09-2012 End: 01-27-2014 CLARITIN 10 MG TABS dialy LORATADINE [id number] Latanya Gatica predniSONE 20 mg oral tablet (8 sources) Start: 08-26-2015 End: 01-29-2020 take 3 tablets by mouth once daily Prednisone 20 MG tablet Discontinued 60 mg PO DAILY August 26, 2015 12:00am January 29, 2020 9:42am Start: 08-26-2015 End: 01-29-2020 take 60 mg by mouth once daily Prednisone Discontinued 60 MG PO DAILY August 25, 2015 11:00pm January 29, 2020 8:42am triamcinolone acetonide 0.055 mg/actuat metered dose nasal spray (20 sources) Corticosteroid Start: 08-09-2012 End: 01-27-2014 NASACORT AQ 55 MCG/ACT AERO 2 sprays daily TRIAMCINOLONE ACETONIDE [id number] Deonte Richter Start: 08-09-2012 NASACORT AQ 55 MCG/ACT AERS 2 sprays daily TRIAMCINOLONE ACETONIDE [id number] Latanya Gatica Start: 08-09-2012 End: 01-27-2014 NASACORT AQ 55 MCG/ACT AERS 2 sprays daily TRIAMCINOLONE ACETONIDE [id number] Deonte Richter take 2 spray(s) nasa l route once daily triamcinolone (NASACORT) 55 mcg nasal inhaler Instill 2 (two) sprays into each nostril daily . Active Problems Active Problems Problem Classification Problem Date Documented Date Episodic/Chronic Diabetes mellitus with complications (20 sources) Type 1 diabetes mellitus uncontrolled; Translations: [Hypoglycemia due to type 1 diabetes mellitus] Onset: 04-25-2019 Chronic Diabetes mellitus without complication (20 sources) Type 1 diabetes mellitus; Translations: [Type 1 diabetes mellitus with diabetic autonomic (poly)neuropathy] Onset: 04-29-2017 04-29-2017 Chronic Disorders of lipid metabolism (7 sources) Hyperlipidemia; Translations: [Hyperlipidemia, unspecified] Onset: 04-29-2017 04-29-2017 Chronic Nausea and vomiting (7 sources) Nausea and vomiting; Translations: [Nausea with vomiting, unspecified] 02-25-2022 Episodic Osteoarthritis (1 source) Primary osteoarthritis, unspecified hand; Translations: [Primary osteoarthritis, unspecified hand] Onset: 12-12-2024 Chronic Other endocrine disorders (7 sources) Hypoglycemia; Translations: [Hypoglycemia, unspecified] 02-25-2022 Chronic Other liver diseases (1 source) Elevated levels of transaminase & lactic acid dehydrogenase; Translations: [Nonspecific elevation of levels of transaminase or lactic acid dehydrogenase (LDH)] 04-19-2010 Episodic Other non-traumatic joint disorders (1 source) Pain in unspecified hip; Translations: [Pain in unspecified hip] Onset: 07-03-2025 Episodic Other upper respiratory infections (1 source) Bacterial sinusitis; Translations: [Chronic sinusitis, unspecified] 07-12-2025 Chronic Thyroid disorders (4 sources) Hypothyroidism; Translations: [Hypothyroidism, unspecified] Onset: 06-01-2025 06-01-2025 Chronic Unclassified (2 sources) Insertion of insulin pump; Translations: [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 Bradford Finn MD Status: REG CLI Study: HIP, UNI W/ Pelvis 2-3 Views Date of Exam: 05/13 Exam# [id number] Ordering Dr: Bradford Finn MD PROCEDURE: HIP, UNI W/ PELVIS 2-3 VIEWS 06/24/2025 REASON FOR EXAM: PAIN TECHNIQUE: HIP, UNI W/ PELVIS 2-3 VIEWS COMPARISON: None. RAD/HIP, UNI W/ Pelvis 2-3 Views IMPRESSION: At least mild Degenerative Changes Are Seen Of The Visualized Lower Lumbar Spine. Minimal Sacroiliac Joint Degenerative Changes Are Noted. Hip Joints Appear Symmetric And Within Normal Range. No Evidence Of Femoral Head Osteonecrosis. No Fracture Or Dislocation Is Evident. If clinical concern persists, short-term follow-up imaging may be obtained to rule out a currently occult fracture. Reading Location: [place] [address] CC: Dr. Bradford Finn MD Electromyographic Technician: Signed Normal [facility] Anion gap in Serum or Plasma Ordered By: Nelida Blanco on 05-28-2025 Anion gap [Moles/Vol] 14 mmol/L 5-15 [facility] BUN/creatinine ratioOrdered By: Nelida Blanco on 05-28-2025 Urea nitrogen/Creatinine [Mass ratio] 16.2 mg/mg 10- [facility] Bilirubin, totalOrdered By: Nelida Blanco on 05-28-2025 Bilirubin [Mass/Vol] 0.45 mg/dL 0.00-1.30 [facility] Carbon dioxide, total [Moles /volume] in Central venous bloodOrdered By: Nelida Blanco on 05-28-2025 CO2 [Moles/Vol] 22.5 mmol/L 21.0-32.0 [facility] Chloride assayOrdered By: Angelica Blanco on 05-28-2025 Chloride [Moles/Vol] 105 mmol/L 98-108 [facility] Comprehensive Metabolic Prof ilon 05-28-2025 Albumin [Mass/Vol] 4.1 g/dL Normal 3.5-5.0 [facility] Comment on above: Performed By: #### L 500.4050, L500.4100, L501.9985, L100.0100, L506.0400, L501.9520 #### [facility] [address] [place], [address] Albumin/Globulin [Mass ratio] 1.3 {ratio} Normal 0.9-2.4 [facility] Comment on above: Performed By: #### L 500.4050, L500.4100, L501.9985, L100.0100, L506.0400, L501.9520 #### [facility] [address] [place], [address] ALK PHOS 101 U/L Normal 40-129 [facility] Comment on above: Performed By: #### L 500.4050, L500.4100, L501.9985, L100.0100, L506.0400, L501.9520 #### [facility] [address] [place], [address] ALT [Catalytic activity/Vol] 21 U/L Normal <=46 [facility] Comment on above: Performed By: #### L 500.4050, L500.4100, L501.9985, L100.0100, L506.0400, L501.9520 #### [facility] [address] [place], [address] AST [Catalytic activity/Vol] 31 U/L Normal <=37 [facility] Comment on above: Performed By: #### L 500.4050, L500.4100, L501.9985, L100.0100, L506.0400, L501.9520 #### [facility] [address] [place], [address] Bilirubin [Mass/Vol] 0.45 mg/dL Normal 0.00-1.30 [facility] Comment on above: Performed By: #### L 500.4050, L500.4100, L501.9985, L100.0100, L506.0400, L501.9520 #### [facility] [address] [place], [address] BUN/CRE 16.2 RATIO Normal 10-20 [facility] Comment on above: Performed By: #### L 500.4050, L500.4100, L501.9985, L100.0100, L506.0400, L501.9520 #### [facility] [address] [place], [address] Calcium [Mass/Vol] 9.8 mg/dL Normal 7.6-11.0 [facility] Comment on above: Performed By: #### L 500.4050, L500.4100, L501.9985, L100.0100, L506.0400, L501.9520 #### [facility] [address] [place], [address] Chloride [Moles/Vol] 105 mmol/L Normal 98-108 [facility] Comment on above: Performed By: #### L 500.4050, L500.4100, L501.9985, L100.0100, L506.0400, L501.9520 #### [facility] [address] [place], [address] CO2 [Moles/Vol] 22.5 mmol/L Normal 21.0-32.0 [facility] Comment on above: Performed By: #### L 500.4050, L500.4100, L501.9985, L100.0100, L506.0400, L501.9520 #### [facility] [address] [place], [address] Creatinine [Mass/Vol] 1.34 mg/dL High 0.70-1.20 [facility] Comment on above: Performed By: #### L 500.4050, L500.4100, L501.9985, L100.0100, L506.0400, L501.9520 #### [facility] [address] [place], [address] GAP 14 Normal 5-15 [facility] Comment on above: Performed By: #### L 500.4050, L500.4100, L501.9985, L100.0100, L506.0400, L501.9520 #### [facility] [address] [place], [address] GFR/1.73 sq M.predicted among non-blacks MDRD (S/P/Bld) [Vol rate/Area] 63 mL/min/{1.73_m2} Normal >60 [facility] Comment on above: Result Comment: mL/m in/1.73m2 CKD-EPI Creatinine Equation (2020) Performed By: #### L 500.4050, L500.4100, L501.9985, L100.0100, L506.0400, L501.9520 #### [facility] [address] [place], [address] Globulin (S) [Mass/Vol] 3.2 g/dL Normal 2.2-4.2 [facility] Comment on above: Performed By: #### L 500.4050, L500.4100, L501.9985, L100.0100, L506.0400, L501.9520 #### [facility] [address] [place], [address] Glucose [Mass/Vol] 41 mg/dL Invalid Interpretation Code 7099 [facility] Comment on above: Result Comment: Crit ical Result(s) Called at: by:??Results read back by same. Performed By: #### L 500.4050, L500.4100, L501.9985, L100.0100, L506.0400, L501.9520 #### [facility] [address] [place], [address] Potassium [Moles/Vol] 4.2 mmol/L Normal 3.3-5.1 [facility] Comment on above: Performed By: #### L 500.4050, L500.4100, L501.9985, L100.0100, L506.0400, L501.9520 #### [facility] [address] [place], [address] Sodium [Moles/Vol] 141 mmol/L Normal 133-145 [facility] Comment on above: Performed By: #### L 500.4050, L500.4100, L501.9985, L100.0100, L506.0400, L501.9520 #### [facility] [address] [place], [address] T PROT 7.3 g/dL Normal 5.9-8.4 [facility] Comment on above: Performed By: #### L 500.4050, L500.4100, L501.9985, L100.0100, L506.0400, L501.9520 #### [facility] [address] [place], [address] Urea nitrogen [Mass/Vol] 22 mg/dL High 4-19 [facility] Comment on above: Performed By: #### L 500.4050, L500.4100, L501.9985, L100.0100, L506.0400, L501.9520 #### [facility] [address] [place], [address] Glomerular filtration rate ( GFR) estimation/1.73 sq m using serum, plasma, or whole bOrdered By: Nelida Blanco on 05-28-2025 GFR/1.73 sq M.predicted among non-blacks MDRD (S/P/Bld) [Vol rate/Area] 63 mL/min/{1.73_m2} >60 [facility] Comment on above: mL/min/1.73m2 CKD-EP I Creatinine Equation (2020) Hemoglobin A1con 05-28-2025 HbA1c (Bld) [Mass fraction] 6.0 % High <=5.6 [facility] Comment on above: Result Comment: Norm al < 5.7 % Prediabetic 5.7 - 6.4 % Diabetic >or= 6.5 % Please note range changes. Performed By: #### L 500.4050, L500.4100, L501.9985, L100.0100, L506.0400, L501.9520 #### [facility] [address] [place], [address] Hemoglobin A1c percentageOrd ered By: Nelida Blanco on 05-28-2025 HbA1c (Bld) [Mass fraction] 6.0 % High <5.7 [facility] Comment on above: Normal < 5.7 % Predi abetic 5.7 - 6.4 % Diabetic >or= 6.5 % Please note range changes. Laboratory - Chemistry and C hemistry - challengeOrdered By: Nelida Blanco on 05-28-2025 AST [Catalytic activity/Vol] 31 U/L <38 [facility] Potassium measurement (mass/ volume)Ordered By: Nelida Blanco on 05-28-2025 Potassium (Unsp spec) [Mass/Vol] 4.2 mmol/L 3.3-5.1 [facility] Serum creatinine measurement (mass/volume)Ordered By: Nelida Blanco on 05-28-2025 Creatinine [Mass/Vol] 1.34 mg/dL High 0.70-1.20 [facility] Serum globulin measurementOr dered By: Nelida Blanco on 05-28-2025 Globulin (S) [Mass/Vol] 3.2 g/dL 2.2-4.2 [facility] Serum glucose measurement (m ass/volume)Ordered By: Nelida Blanco on 05-28-2025 Glucose [Mass/Vol] 41 mg/dL Low 70-99 [facility] Comment on above: Critical Result(s) C alled at: by: Results read back by same. Serum or plasma alanine chappell otransferase (ALT) measurementOrdered By: Nelida Blanco on 05-28-2025 ALT [Catalytic activity/Vol] 21 U/L <47 [facility] Serum or plasma albumin lucina urement (mass/volume)Ordered By: Nelida Blanco on 05-28-2025 Albumin [Mass/Vol] 4.1 g/dL 3.5-5.0 [facility] Serum or plasma albumin/glob ulin mass ratioOrdered By: Nelida Blanco on 05-28-2025 Albumin/Globulin [Mass ratio] 1.3 {ratio} 0.9-2.4 [facility] Serum or plasma alkaline darin sphatase measurementOrdered By: Nelida Blanco on 05-28-2025 ALP [Catalytic activity/Vol] 101 U/L 40-129 [facility] Serum or plasma calcium lucina urement (mass/volume)Ordered By: Nelida Blanco on 05-28-2025 Calcium [Mass/Vol] 9.8 mg/dL 7.6-11.0 [facility] Serum or plasma urea nitroge n measurement (mass/volume)Ordered By: Nelida Blanco on 05-28-2025 Urea nitrogen [Mass/Vol] 22 mg/dL High 4-19 [facility] Sodium levelOrdered By: Sam Blanco on 05-28-2025 Sodium [Moles/Vol] 141 mmol/L 133-145 [facility] T4 Free Directon 05-28-2025 T4 FREE DIRECT 0.80 ng/dL Normal 0.76-1.46 [facility] Comment on above: Performed By: #### L 500.4050, L500.4100, L501.9985, L100.0100, L506.0400, L501.9520 #### [facility] [address] [place], [place], [id number] T4 freeOrdered By: Nelida richard on 05-28-2025 Free T4 [Mass/Vol] 0.80 ng/dL 0.76-1.46 [facility] TSH DL <= 0.005 mIU/L QnOrde red By: Nelida Blanco on 05-28-2025 TSH Qn 4.340 uIU/mL High 0.300-4.200 [facility] Thyroid Stim Hormone (TSH)on 05-28-2025 TSH 4.340 uIU/mL High 0.300-4.200 [facility] Comment on above: Performed By: #### L 500.4050, L500.4100, L501.9985, L100.0100, L506.0400, L501.9520 #### [facility] [address] [place], [address] Total proteinOrdered By: Winston Blanco on 05-28-2025 Protein [Mass/Vol] 7.3 g/dL 5.9-8.4 [facility] CBC W/Diff, Automatedon 11-19 Absolute Lymph 2.28 X10 3/uL Normal 0.83-4.51 [facility] Comment on above: Performed By: #### L 500.4050, L500.4100, L501.9985, L100.0100, L506.0400, L501.9520 #### [facility] [address] [place], [address] Absolute Neut 3.7 X10 3/uL Normal 2.0-7.7 [facility] Comment on above: Performed By: #### L 500.4050, L500.4100, L501.9985, L100.0100, L506.0400, L501.9520 #### [facility] [address] [place], [address] Basophils/100 WBC (Bld) 1.4 % High 0-1 [facility] Comment on above: Performed By: #### L 500.4050, L500.4100, L501.9985, L100.0100, L506.0400, L501.9520 #### [facility] [address] [place], [address] Eosinophils/100 WBC (Bld) 8.8 % High 0-5 [facility] Comment on above: Performed By: #### L 500.4050, L500.4100, L501.9985, L100.0100, L506.0400, L501.9520 #### [facility] [address] [place], [address] Erythrocyte distribution width (RBC) [Ratio] 14.6 % Normal 11.6-14.6 [facility] Comment on above: Performed By: #### L 500.4050, L500.4100, L501.9985, L100.0100, L506.0400, L501.9520 #### [facility] [address] [place], [address] Hematocrit (Bld) [Volume fraction] 43.0 % Normal 40-54 [facility] Comment on above: Performed By: #### L 500.4050, L500.4100, L501.9985, L100.0100, L506.0400, L501.9520 #### [facility] [address] [place], [address] Hemoglobin (Bld) [Mass/Vol] 14.4 g/dL Normal 13.0-16.5 [facility] Comment on above: Performed By: #### L 500.4050, L500.4100, L501.9985, L100.0100, L506.0400, L501.9520 #### [facility] [address] [place], [address] IG% 0.300 Normal 0.0-0.9 [facility] Comment on above: Result Comment: IG% - Immature Granulocytes (promyelocytes, myelocytes and metamyelocytes) > 1% indicates that a LEFT SHIFT is Present. Performed By: #### L 500.4050, L500.4100, L501.9985, L100.0100, L506.0400, L501.9520 #### [facility] [address] [place], [address] Lymphocytes/100 WBC (Bld) 30.9 % Normal 19-41 [facility] Comment on above: Performed By: #### L 500.4050, L500.4100, L501.9985, L100.0100, L506.0400, L501.9520 #### [facility] [address] [place], [address] MCH (RBC) [Entitic mass] 29.5 pg Normal 27.0-32.0 [facility] Comment on above: Performed By: #### L 500.4050, L500.4100, L501.9985, L100.0100, L506.0400, L501.9520 #### [facility] [address] [place], [address] MCHC (RBC) [Mass/Vol] 33.5 g/dL Normal 32-36 [facility] Comment on above: Performed By: #### L 500.4050, L500.4100, L501.9985, L100.0100, L506.0400, L501.9520 #### [facility] [address] [place], [address] MCV (RBC) [Entitic vol] 88.1 fL Normal 80-94 [facility] Comment on above: Performed By: #### L 500.4050, L500.4100, L501.9985, L100.0100, L506.0400, L501.9520 #### [facility] [address] [place], [address] Monocytes/100 WBC (Bld) 9.1 % Normal 0-10 [facility] Comment on above: Performed By: #### L 500.4050, L500.4100, L501.9985, L100.0100, L506.0400, L501.9520 #### [facility] [address] [place], [address] Neutrophils/100 WBC (Bld) 49.5 % Normal 47-70 [facility] Comment on above: Performed By: #### L 500.4050, L500.4100, L501.9985, L100.0100, L506.0400, L501.9520 #### [facility] [address] [place], [address] Nucleated RBC (Bld) [#/Vol] 0 10*3/uL Normal 0-5 [facility] Comment on above: Performed By: #### L 500.4050, L500.4100, L501.9985, L100.0100, L506.0400, L501.9520 #### [facility] [address] [place], [address] Platelet mean volume (Bld) [Entitic vol] 10.5 fL Normal 6.2-12.0 [facility] Comment on above: Performed By: #### L 500.4050, L500.4100, L501.9985, L100.0100, L506.0400, L501.9520 #### [facility] [address] [place], [address] Platelets (Bld) [#/Vol] 268 10*3/uL Normal 150-450 [facility] Comment on above: Performed By: #### L 500.4050, L500.4100, L501.9985, L100.0100, L506.0400, L501.9520 #### [facility] [address] [place], [address] RBC (Bld) [#/Vol] 4.88 10*6/uL Normal 4.6-6.2 [facility] Comment on above: Performed By: #### L 500.4050, L500.4100, L501.9985, L100.0100, L506.0400, L501.9520 #### [facility] [address] [place], [address] RDW SD 47.0 fl High 35.1-43.9 [facility] Comment on above: Performed By: #### L 500.4050, L500.4100, L501.9985, L100.0100, L506.0400, L501.9520 #### [facility] [address] [place], [address] WBC (Bld) [#/Vol] 7.4 10*3/uL Normal 4.4-11.0 [facility] Comment on above: Performed By: #### L 500.4050, L500.4100, L501.9985, L100.0100, L506.0400, L501.9520 #### [facility] [address] [place], [address] Comprehensive Metabolic Prof ilon 11-28-2024 Albumin [Mass/Vol] 3.4 g/dL Normal 3.2-5.0 [facility] Comment on above: Order Comment: N Performed By: #### L 500.4050, L500.4100, L501.9985, L100.0100, L506.0400, L501.9520 #### [facility] [address] [place], [address] Albumin/Globulin [Mass ratio] 0.9 {ratio} Normal 0.9-2.4 [facility] Comment on above: Order Comment: N Performed By: #### L 500.4050, L500.4100, L501.9985, L100.0100, L506.0400, L501.9520 #### [facility] [address] [place], [address] ALK P 90 U/L Normal 45-117 [facility] Comment on above: Order Comment: N Performed By: #### L 500.4050, L500.4100, L501.9985, L100.0100, L506.0400, L501.9520 #### [facility] [address] [place], [address] ALT [Catalytic activity/Vol] 49 U/L Normal 16-61 [facility] Comment on above: Order Comment: N Performed By: #### L 500.4050, L500.4100, L501.9985, L100.0100, L506.0400, L501.9520 #### [facility] [address] [place], [address] AST [Catalytic activity/Vol] 43 U/L High 15-37 [facility] Comment on above: Order Comment: N Performed By: #### L 500.4050, L500.4100, L501.9985, L100.0100, L506.0400, L501.9520 #### [facility] [address] [place], [address] Bilirubin [Mass/Vol] 0.50 mg/dL Normal 0.20-1.00 [facility] Comment on above: Order Comment: N Result Comment: For patients on eltrombopag therapy, use of Dimension [place] TBIL is not recommended. Performed By: #### L 500.4050, L500.4100, L501.9985, L100.0100, L506.0400, L501.9520 #### [facility] [address] [place], [address] BUN/CRE 18.5 RATIO Normal 10-20 [facility] Comment on above: Order Comment: N Performed By: #### L 500.4050, L500.4100, L501.9985, L100.0100, L506.0400, L501.9520 #### [facility] [address] [place], [address] CA,Total 9.2 mg/dL Normal 8.5-10.1 [facility] Comment on above: Order Comment: N Performed By: #### L 500.4050, L500.4100, L501.9985, L100.0100, L506.0400, L501.9520 #### [facility] [address] [place], [address] Chloride [Moles/Vol] 110 mmol/L High 98-107 [facility] Comment on above: Order Comment: N Performed By: #### L 500.4050, L500.4100, L501.9985, L100.0100, L506.0400, L501.9520 #### [facility] [address] [place], [address] CO2 [Moles/Vol] 28.0 mmol/L Normal 21.0-32.0 [facility] Comment on above: Order Comment: N Performed By: #### L 500.4050, L500.4100, L501.9985, L100.0100, L506.0400, L501.9520 #### [facility] [address] [place], [address] Creatinine [Mass/Vol] 1.08 mg/dL Normal 0.70-1.30 [facility] Comment on above: Order Comment: N Result Comment: The validity of the calculated GFR GFRAA in patients over 70 years has not been determined. Clinical correlation is essential. Performed By: #### L 500.4050, L500.4100, L501.9985, L100.0100, L506.0400, L501.9520 #### [facility] [address] [place], [address] EST GFR - AA 92 mL/min Normal >60 [facility] Comment on above: Order Comment: N Result Comment: Afri can Austrian GFR Calc Performed By: #### L 500.4050, L500.4100, L501.9985, L100.0100, L506.0400, L501.9520 #### [facility] [address] [place], [address] GAP 2 Low 5-15 [facility] Comment on above: Order Comment: N Performed By: #### L 500.4050, L500.4100, L501.9985, L100.0100, L506.0400, L501.9520 #### [facility] [address] [place], [address] GFR/1.73 sq M.predicted among non-blacks MDRD (S/P/Bld) [Vol rate/Area] 76 mL/min/{1.73_m2} Normal >60 [facility] Comment on above: Order Comment: N Result Comment: Non- GFR Calc Performed By: #### L 500.4050, L500.4100, L501.9985, L100.0100, L506.0400, L501.9520 #### [facility] [address] [place], [address] Globulin (S) [Mass/Vol] 3.6 g/dL Normal 2.2-4.2 [facility] Comment on above: Order Comment: N Performed By: #### L 500.4050, L500.4100, L501.9985, L100.0100, L506.0400, L501.9520 #### [facility] [address] [place], [address] Glucose [Mass/Vol] 94 mg/dL Normal 74-106 [facility] Comment on above: Order Comment: N Performed By: #### L 500.4050, L500.4100, L501.9985, L100.0100, L506.0400, L501.9520 #### [facility] [address] [place], [address] Potassium [Moles/Vol] 4.0 mmol/L Normal 3.5-5.1 [facility] Comment on above: Order Comment: N Performed By: #### L 500.4050, L500.4100, L501.9985, L100.0100, L506.0400, L501.9520 #### [facility] [address] [place], [address] Sodium [Moles/Vol] 140 mmol/L Normal 136-145 [facility] Comment on above: Order Comment: N Performed By: #### L 500.4050, L500.4100, L501.9985, L100.0100, L506.0400, L501.9520 #### [facility] [address] [place], [address] T PROT 7.0 g/dL Normal 6.4-8.2 [facility] Comment on above: Order Comment: N Performed By: #### L 500.4050, L500.4100, L501.9985, L100.0100, L506.0400, L501.9520 #### [facility] [address] [place], [address] Urea nitrogen [Mass/Vol] 20 mg/dL High 7-18 [facility] Comment on above: Order Comment: N Performed By: #### L 500.4050, L500.4100, L501.9985, L100.0100, L506.0400, L501.9520 #### [facility] [address] [place], [address] Hemoglobin A1con 11-28-2024 HbA1c (Bld) [Mass fraction] 6.4 % High 3.8-5.6 [facility] Comment on above: Result Comment: Norm al < 5.7 % Prediabetic 5.7 - 6.4 % Diabetic >or= 6.5 % Please note range changes. Performed By: #### L 500.4050, L500.4100, L501.9985, L100.0100, L506.0400, L501.9520 #### [facility] [address] [place], [address] Lipid Profileon 11-28-2024 Cholesterol [Mass/Vol] 182 mg/dL Normal 200 [facility] Comment on above: Order Comment: N Result Comment: <200 mg/dL Desirable 200-240 mg/dL Borderline >240 mg/dL High Risk Performed By: #### L 500.4050, L500.4100, L501.9985, L100.0100, L506.0400, L501.9520 #### [facility] [address] [place], [address] Cholesterol in HDL [Mass/Vol] 51 mg/dL Normal [facility] Comment on above: Order Comment: N Result Comment: The drugs N-Acetylcysteine and Metamizole may falsely depress this assay. Reference Range HDL <40 mg/dL Low HDL Cholesterol HDL >or= 60 mg/dL High HDL Cholesterol Performed By: #### L 500.4050, L500.4100, L501.9985, L100.0100, L506.0400, L501.9520 #### [facility] [address] [place], [address] Cholesterol in LDL [Mass/Vol] 107 mg/dL Normal 0-130 [facility] Comment on above: Order Comment: N Performed By: #### L 500.4050, L500.4100, L501.9985, L100.0100, L506.0400, L501.9520 #### [facility] [address] [place], [address] Cholesterol in VLDL [Mass/Vol] 24 mg/dL Normal 5-40 [facility] Comment on above: Order Comment: N Performed By: #### L 500.4050, L500.4100, L501.9985, L100.0100, L506.0400, L501.9520 #### [facility] [address] [place], [address] Triglyceride [Mass/Vol] 119 mg/dL Normal [facility] Comment on above: Order Comment: N Result Comment: The drugs N-Acetylcysteine and Metamizole may falsely depress this assay. Serum Triglycerides Reference Interval Normal <150 mg/dL Borderline high 150 - 199 mg/dL High 200 - 499 mg/dL Very High > or = 500 mg/dL Performed By: #### L 500.4050, L500.4100, L501.9985, L100.0100, L506.0400, L501.9520 #### [facility] [address] [place], [place], [id number] T4 Free Directon 11-28-2024 T4 FREE DIRECT 0.85 ng/dL Normal 0.76-1.46 [facility] Comment on above: Order Comment: N Performed By: #### L 500.4050, L500.4100, L501.9985, L100.0100, L506.0400, L501.9520 #### [facility] [address] [place], [place], [address] Thyroid Stim Hormone (TSH)on 11-28-2024 TSH 4.160 uIU/mL High 0.358-3.740 [facility] Comment on above: Order Comment: N Performed By: #### L 500.4050, L500.4100, L501.9985, L100.0100, L506.0400, L501.9520 #### [facility] [address] [place], [address] ANTINUCLEAR ANTIBODIES DIREC Ton 11-11-2024 HAIDER,DIRECT Negative Normal Negative [facility] Comment on above: Result Comment: Perf ormed at: - [facility] [id number] Team Coordinator: Anshul Mujica PhD, Phone: [phone] Performed By: #### L 500.4050, L500.4100, L501.9985, L100.0100, L506.0400, L501.9520 #### [facility] [address] [place], [address] CBC W/Diff, Automatedon 12-2 Absolute Lymph 2.26 X10 3/uL Normal 0.83-4.51 [facility] Comment on above: Performed By: #### L 101.9900, L501.1400, L3100.5475, L505.7010, L501.6710, L100.0100 #### [facility] [address] [place], [address] Absolute Neut 3.0 X10 3/uL Normal 2.0-7.7 [facility] Comment on above: Performed By: #### L 101.9900, L501.1400, L3100.5475, L505.7010, L501.6710, L100.0100 #### [facility] [address] [place], [address] Basophils/100 WBC (Bld) 1.4 % High 0-1 [facility] Comment on above: Performed By: #### L 101.9900, L501.1400, L3100.5475, L505.7010, L501.6710, L100.0100 #### [facility] [address] [place], [address] Eosinophils/100 WBC (Bld) 7.4 % High 0-5 [facility] Comment on above: Performed By: #### L 101.9900, L501.1400, L3100.5475, L505.7010, L501.6710, L100.0100 #### [facility] [address] [place], [address] Erythrocyte distribution width (RBC) [Ratio] 14.3 % Normal 11.6-14.6 [facility] Comment on above: Performed By: #### L 101.9900, L501.1400, L3100.5475, L505.7010, L501.6710, L100.0100 #### [facility] [address] [place], [address] Hematocrit (Bld) [Volume fraction] 45.5 % Normal 40-54 [facility] Comment on above: Performed By: #### L 101.9900, L501.1400, L3100.5475, L505.7010, L501.6710, L100.0100 #### [facility] [address] [place], [address] Hemoglobin (Bld) [Mass/Vol] 15.0 g/dL Normal 13.0-16.5 [facility] Comment on above: Performed By: #### L 101.9900, L501.1400, L3100.5475, L505.7010, L501.6710, L100.0100 #### [facility] [address] [place], [address] IG% 0.200 Normal 0.0-0.9 [facility] Comment on above: Result Comment: IG% - Immature Granulocytes (promyelocytes, myelocytes and metamyelocytes) > 1% indicates that a LEFT SHIFT is Present. Performed By: #### L 101.9900, L501.1400, L3100.5475, L505.7010, L501.6710, L100.0100 #### [facility] [address] [place], [address] Lymphocytes/100 WBC (Bld) 35.0 % Normal 19-41 [facility] Comment on above: Performed By: #### L 101.9900, L501.1400, L3100.5475, L505.7010, L501.6710, L100.0100 #### [facility] [address] [place], [address] MCH (RBC) [Entitic mass] 28.9 pg Normal 27.0-32.0 [facility] Comment on above: Performed By: #### L 101.9900, L501.1400, L3100.5475, L505.7010, L501.6710, L100.0100 #### [facility] [address] [place], [address] MCHC (RBC) [Mass/Vol] 33.0 g/dL Normal 32-36 [facility] Comment on above: Performed By: #### L 101.9900, L501.1400, L3100.5475, L505.7010, L501.6710, L100.0100 #### [facility] [address] [place], [address] MCV (RBC) [Entitic vol] 87.7 fL Normal 80-94 [facility] Comment on above: Performed By: #### L 101.9900, L501.1400, L3100.5475, L505.7010, L501.6710, L100.0100 #### [facility] [address] [place], [address] Monocytes/100 WBC (Bld) 9.8 % Normal 0-10 [facility] Comment on above: Performed By: #### L 101.9900, L501.1400, L3100.5475, L505.7010, L501.6710, L100.0100 #### [facility] [address] [place], [address] Neutrophils/100 WBC (Bld) 46.2 % Low 47-70 [facility] Comment on above: Performed By: #### L 101.9900, L501.1400, L3100.5475, L505.7010, L501.6710, L100.0100 #### [facility] [address] [place], [address] Nucleated RBC (Bld) [#/Vol] 0 10*3/uL Normal 0-5 [facility] Comment on above: Performed By: #### L 101.9900, L501.1400, L3100.5475, L505.7010, L501.6710, L100.0100 #### [facility] [address] [place], [address] Platelet mean volume (Bld) [Entitic vol] 10.9 fL Normal 6.2-12.0 [facility] Comment on above: Performed By: #### L 101.9900, L501.1400, L3100.5475, L505.7010, L501.6710, L100.0100 #### [facility] [address] [place], [address] Platelets (Bld) [#/Vol] 256 10*3/uL Normal 150-450 [facility] Comment on above: Performed By: #### L 101.9900, L501.1400, L3100.5475, L505.7010, L501.6710, L100.0100 #### [facility] [address] [place], [address] RBC (Bld) [#/Vol] 5.19 10*6/uL Normal 4.6-6.2 [facility] Comment on above: Performed By: #### L 101.9900, L501.1400, L3100.5475, L505.7010, L501.6710, L100.0100 #### [facility] [address] [place], [address] RDW SD 45.1 fl High 35.1-43.9 [facility] Comment on above: Performed By: #### L 101.9900, L501.1400, L3100.5475, L505.7010, L501.6710, L100.0100 #### [facility] [address] [place], [address] WBC (Bld) [#/Vol] 6.5 10*3/uL Normal 4.4-11.0 [facility] Comment on above: Performed By: #### L 101.9900, L501.1400, L3100.5475, L505.7010, L501.6710, L100.0100 #### [facility] [address] [place], [address] CRPon 11-10-2024 C-REACTIVE PROT < 2.90 Normal 0.0-3.0 [facility] Comment on above: Result Comment: C-Re active Protein (CRP) provides useful information for the diagnosis, therapy and monitoring of inflammatory processes and associated diseases. For the evaluation of Relative Risk for Cardiovascular Disease, a High Sensitivity CRP (HSCRP) should be ordered. Performed By: #### L 101.9900, L501.1400, L3100.5475, L505.7010, L501.6710, L100.0100 #### [facility] [address] [place], [address] Erythrocyte Sed Rateon 11-10 SED RATE 10 mm/hr Normal 0-20 [facility] Comment on above: Performed By: #### L 101.9900, L501.1400, L3100.5475, L505.7010, L501.6710, L100.0100 #### [facility] [address] [place], [address] Hand Min 3 Viewson Hand Min 3 Views [facility] [address] [place] [address] Hand Min 3 Views MR#: [id number] Acct: [id number] Name: SHANE ZUÑIGA Rep #: [id number] : 1970 M 54 From: Marcos Ward MD PCP: Dr. Yessi Cuevas MD Status: REG CLI Study: Hand Min 3 Views Date of Exam: 11/10/24 Exam# [id number] Ordering Dr: Yessi Cuevas MD [id number] EXAM: XR RIGHT HAND COMPLETE, 3 OR MORE VIEWS CLINICAL INDICATION: arthritis TECHNIQUE: Frontal, lateral and oblique views of the right hand. COMPARISON: No relevant prior studies available. FINDINGS: BONES/JOINTS: Unremarkable. No acute fracture. No subluxation. Normal alignment. Preservation of the joint space. No sclerotic or destructive changes observed. SOFT TISSUES: Unremarkable. No soft tissue swelling or gas. No radiopaque foreign body. VASCULATURE: Small vessel arterial calcifications. RAD/Hand Min 3 Views IMPRESSION: No arthritic changes or other significant findings in the right hand. Electronically Signed: Marcos Ward MD at 1:45 EST , CC: Dr. Yessi Cuevas MD Electromyographic Technician: Signed Normal [facility] Rheumatoid Factoron 11-10-20 RHEUMATOID FAC < 10.0 Normal <15 [facility] [facility] Comment on above: Performed By: #### L 500.4050, L500.4100, L501.9985, L100.0100, L506.0400, L501.9520 #### [facility] [address] [place], [place], [id number] Uric Acidon 11-10-2024 URIC 4.2 mg/dL Normal 3.5-7.2 [facility] Comment on above: Result Comment: The drugs N-Acetylcysteine and Metamizole may falsely depress this assay. Performed By: #### L 101.9900, L501.1400, L3100.5475, L505.7010, L501.6710, L100.0100 #### [facility] [address] [place], [place], [address] Absolute lymphocyte counton 11-26-2023 Lymphocytes Auto (Unsp spec) [#/Vol] 3.20 10*3/uL 0.83-4.51 [facility] Basophil percentageon 2023 Basophils/100 WBC (Bld) 0.9 % 0-1 [facility] Bilirubin [Mass/Vol] 0.70 mg/dL 0.20-1.00 [facility] Comment on above: For patients on eltr ombopag therapy, use of Dimension [place] TBIL is not recommended. Chloride [Moles/Vol] 109 mmol/L 98-107 [facility] Cholesterol [Mass/Vol] 183 mg/dL <200 [facility] Comment on above: <200 mg/dL Desirable 200-240 mg/dL Borderline >240 mg/dL High Risk Eosinophils/100 WBC (Bld) 4.1 % 0-5 [facility] Glucose [Mass/Vol] 39 mg/dL 74-106 [facility] Comment on above: Critical Result(s) C alled at: 11:42:46 11/26/2023 by: Dashawn Parker to Dangelo NAVA (MTLAB). Results read back by same.Glucose result less than 50 mg/dL suggests HYPOGLYCEMIA. Neutrophils (Bld) [#/Vol] 3.3 10*3/uL 2.0-7.7 [facility] Neutrophils/100 WBC (Bld) 43.0 % 47-70 [facility] Potassium [Moles/Vol] 3.7 mmol/L 3.5-5.1 [facility] Protein [Mass/Vol] 7.1 g/dL 6.4-8.2 [facility] Sodium [Moles/Vol] 143 mmol/L 136-145 [facility] Triglyceride [Mass/Vol] 46 mg/dL <199 [facility] Comment on above: The drugs N-Acetylcy steine and Metamizole may falsely depress this assay.Serum Triglycerides Reference Interval Normal <150 mg/dL Borderline high 150 - 199 mg/dL High 200 - 499 mg/dL Very High > or = 500 mg/dL WBC (Bld) [#/Vol] 7.6 10*3/uL 4.4-11.0 [facility] Blood erythrocytes count (nu mber/volume)on 11-26-2023 RBC (Bld) [#/Vol] 5.14 10*6/uL 4.6-6.2 [facility] Blood hemoglobin measurement (mass/volume)on 11-26-2023 Hemoglobin (Bld) [Mass/Vol] 15.0 g/dL 13.0-16.5 [facility] Blood lymphocytes/100 leukoc yteson 11-26-2023 Lymphocytes/100 WBC (Bld) 42.3 % 19-41 [facility] Blood monocytes/100 leukocyt eson 11-26-2023 Monocytes/100 WBC (Bld) 8.9 % 0-10 [facility] Blood platelet mean volumeon 11-26-2023 Platelet mean volume (Bld) [Entitic vol] 10.9 fL 6.2-12.0 [facility] Determination of erythrocyte mean corpuscular volume (MCV)on 11-26-2023 MCV (RBC) [Entitic vol] 89.7 fL 80-94 [facility] Hematocrit Auto (Bld) [Volum e fraction]on 11-26-2023 Hematocrit (Bld) [Volume fraction] 46.1 % 40-54 [facility] - Chemistry and C hemistry - challengeon 11-26-2023 ALP [Catalytic activity/Vol] 82 U/L 45-117 [facility] ALT [Catalytic activity/Vol] 32 U/L 16-61 [facility] CO2 [Moles/Vol] 31.0 mmol/L 21.0-32.0 [facility] Free T4 [Mass/Vol] 1.06 ng/dL 0.76-1.46 [facility] Globulin (S) [Mass/Vol] 3.6 g/dL 2.2-4.2 [facility] Urea nitrogen/Creatinine [Mass ratio] 17.3 mg/mg 10-20 [facility] - Hematology and Cell countson 11-26-2023 Erythrocyte distribution width (RBC) [Entitic vol] 43.8 fL 35.1-43.9 [facility] Erythrocyte distribution width (RBC) [Ratio] 13.3 % 11.6-14.6 [facility] Immature granulocytes/100 WBC (Bld) 0.800 % 0.0-0.9 [facility] Comment on above: IG% - Immature Granu locytes (promyelocytes, myelocytes and metamyelocytes) > 1% indicates that a LEFT SHIFT is Present. MCH (RBC) [Entitic mass] 29.2 pg 27.0-32.0 [facility] Nucleated RBC/100 WBC (Bld) [Ratio] 0 % 0-5 [facility] MCHC Auto (RBC) [Mass/Vol]on 11-26-2023 MCHC (RBC) [Mass/Vol] 32.5 g/dL 32-36 [facility] No Panel Informationon 11-26 Estimated GFR (MDRD) Amer 110 mL/min >60 [facility] Comment on above: GFR Calc Estimated GFR (MDRD) Non-Af Amer 91 mL/min >60 [facility] Comment on above: Non- GFR Calc Thyroid Stimulating Hormone (TSH) 2.89 uIU/mL 0.358-3.74 [facility] Urine Microalbumin/Creatinin e Ratio 5.2 mg/g CRE <30 [facility] Platelets bldon 11-26-2023 Platelets (Bld) [#/Vol] 299 10*3/uL 150-450 [facility] Serum or plasma albumin lucina urement (mass/volume)on 11-26-2023 Albumin [Mass/Vol] 3.5 g/dL 3.2-5.0 [facility] Serum or plasma albumin/glob ulin mass ratioon 11-26-2023 Albumin/Globulin [Mass ratio] 1.0 {ratio} 0.9-2.4 [facility] Serum or plasma calcium lucina urement (mass/volume)on 11-26-2023 Calcium [Mass/Vol] 9.0 mg/dL 8.5-10.1 [facility] Serum or plasma cholesterol in HDL measurement (mass/volume)on 11-26-2023 Cholesterol in HDL [Mass/Vol] 53 mg/dL >40 [facility] Comment on above: The drugs N-Acetylcy steine and Metamizole may falsely depress this assay. Reference Range HDL <40 mg/dL Low HDL Cholesterol HDL >or= 60 mg/dL High HDL Cholesterol Serum or plasma cholesterol in VLDL measurement (mass/volume)on 11-26-2023 Cholesterol in VLDL [Mass/Vol] 9 mg/dL 5-40 [facility] Serum or plasma creatinine m easurement (mass/volume)on 11-26-2023 Creatinine [Mass/Vol] 0.92 mg/dL 0.70-1.30 [facility] Comment on above: The validity of the calculated GFR & GFRAA in patients over 70 years has not been determined. Clinical correlation is essential. Serum or plasma low density lipoprotein (LDL) cholesterol measurement (mass/volume)on 11-26-2023 Cholesterol in LDL [Mass/Vol] 121 mg/dL 0-130 [facility] Serum or plasma urea nitroge n measurement (mass/volume)on 11-26-2023 Urea nitrogen [Mass/Vol] 16 mg/dL 7-18 [facility] Thin prep Papanicolaou smear with manual screeningon 11-26-2023 Thin prep Papanicolaou smear with manual screening 28 U/L 15-37 [facility] Thin prep Papanicolaou smear with manual screening 3 5-15 [facility] Thin prep Papanicolaou smear with manual screening 8.2 mg/L NO RANGE EST. [facility] Urine creatinine measurement (mass/volume)on 11-26-2023 Creatinine (U) [Mass/Vol] 158.00 mg/dL NO RANGE EST. [facility] Whole blood hemoglobin A1c/t otal hemoglobin ratio (mass fraction)on 11-26-2023 HbA1c (Bld) [Mass fraction] 6.4 % 3.8-5.6 [facility] Comment on above: Normal < 5.7 % Predi abetic 5.7 - 6.4 % Diabetic >or= 6.5 % Please note range changes. HbA1c (Bld) [Mass fraction]o n 03-28-2023 Interpretation and review of laboratory results Abnormal [facility] - Hematology and Cell countson 03-28-2023 HbA1c (Bld) [Mass fraction] 6.4 % Abnormal 4.0 - 6.0 % [facility] Absolute lymphocyte counton 09-07-2022 Lymphocytes Auto (Unsp spec) [#/Vol] 2.16 10*3/uL 0.83-4.51 [facility] Work Phone: Basophil percentageon 2021 Basophils/100 WBC (Bld) 0.8 % 0-1 [facility] Work Phone: Bilirubin [Mass/Vol] 0.60 mg/dL 0.20-1.00 [facility] Work Phone: Comment on above: For patients on eltr ombopag therapy, use of Dimension [place] TBIL is not recommended. Chloride [Moles/Vol] 108 mmol/L 98-107 [facility] Work Phone: Cholesterol [Mass/Vol] 141 mg/dL <200 [facility] Work Phone: Comment on above: <200 mg/dL Desirable 200-240 mg/dL Borderline >240 mg/dL High Risk Eosinophils/100 WBC (Bld) 3.9 % 0-5 [facility] Work Phone: Glucose [Mass/Vol] 98 mg/dL 74-106 [facility] Work Phone: Neutrophils (Bld) [#/Vol] 3.4 10*3/uL 2.0-7.7 [facility] Work Phone: Neutrophils/100 WBC (Bld) 53.6 % 47-70 [facility] Work Phone: Potassium [Moles/Vol] 4.3 mmol/L 3.5-5.1 [facility] Work Phone: Protein [Mass/Vol] 7.0 g/dL 6.4-8.2 [facility] Work Phone: Sodium [Moles/Vol] 142 mmol/L 136-145 [facility] Work Phone: Triglyceride [Mass/Vol] 39 mg/dL <199 [facility] Work Phone: Comment on above: The drugs N-Acetylcy steine and Metamizole may falsely depress this assay.Serum Triglycerides Reference Interval Normal <150 mg/dL Borderline high 150 - 199 mg/dL High 200 - 499 mg/dL Very High > or = 500 mg/dL WBC (Bld) [#/Vol] 6.4 10*3/uL 4.4-11.0 [facility] Work Phone: Blood erythrocytes count (nu mber/volume)on 09-07-2022 RBC (Bld) [#/Vol] 5.09 10*6/uL 4.6-6.2 [facility] Work Phone: Blood hemoglobin measurement (mass/volume)on 09-07-2022 Hemoglobin (Bld) [Mass/Vol] 15.8 g/dL 13.0-16.5 [facility] Work Phone: Blood lymphocytes/100 leukoc yteson 09-07-2022 Lymphocytes/100 WBC (Bld) 33.6 % 19-41 [facility] Work Phone: Blood monocytes/100 leukocyt eson 09-07-2022 Monocytes/100 WBC (Bld) 7.8 % 0-10 [facility] Work Phone: Blood platelet mean volumeon 09-07-2022 Platelet mean volume (Bld) [Entitic vol] 10.8 fL 6.2-12.0 [facility] Work Phone: Determination of erythrocyte mean corpuscular volume (MCV)on 09-07-2022 MCV (RBC) [Entitic vol] 89.2 fL 80-94 [facility] Work Phone: Hematocrit Auto (Bld) [Volum e fraction]on 09-07-2022 Hematocrit (Bld) [Volume fraction] 45.4 % 40-54 [facility] Work Phone: Laboratory - Chemistry and C hemistry - challengeon 09-07-2022 ALP [Catalytic activity/Vol] 72 U/L 45-117 [facility] Work Phone: ALT [Catalytic activity/Vol] 46 U/L 16-61 [facility] Work Phone: CO2 [Moles/Vol] 29.0 mmol/L 21.0-32.0 [facility] Work Phone: Free T4 [Mass/Vol] 1.08 ng/dL 0.76-1.46 [facility] Work Phone: Globulin (S) [Mass/Vol] 3.6 g/dL 2.2-4.2 [facility] Work Phone: Urea nitrogen/Creatinine [Mass ratio] 18.0 mg/mg 09-07 [facility] Work Phone: Laboratory - Hematology and Cell countson 09-07-2022 Erythrocyte distribution width (RBC) [Entitic vol] 45.0 fL 35.1-43.9 [facility] Work Phone: Erythrocyte distribution width (RBC) [Ratio] 13.7 % 11.6-14.6 [facility] Work Phone: Immature granulocytes/100 WBC (Bld) 0.300 % 0.0-0.9 [facility] Work Phone: Comment on above: IG% - Immature Granu locytes (promyelocytes, myelocytes and metamyelocytes) > 1% indicates that a LEFT SHIFT is Present. MCH (RBC) [Entitic mass] 31.0 pg 27.0-32.0 [facility] Work Phone: Nucleated RBC/100 WBC (Bld) [Ratio] 0 % 0-5 [facility] Work Phone: MCHC Auto (RBC) [Mass/Vol]on 09-07-2022 MCHC (RBC) [Mass/Vol] 34.8 g/dL 32-36 [facility] Work Phone: No Panel Informationon 09-07 Estimated GFR (MDRD) Amer 101 mL/min >60 [facility] Work Phone: Comment on above: GFR Calc Estimated GFR (MDRD) Non-Af Amer 84 mL/min >60 [facility] Work Phone: Comment on above: Non- GFR Calc Thyroid Stimulating Hormone (TSH) 3.86 uIU/mL 0.358-3.74 [facility] Work Phone: Urine Microalbumin/Creatinin e Ratio 9.6 mg/g CRE <30 [facility] Work Phone: Platelets bldon 09-07-2022 Platelets (Bld) [#/Vol] 244 10*3/uL 150-450 [facility] Work Phone: Serum or plasma albumin lucina urement (mass/volume)on 09-07-2022 Albumin [Mass/Vol] 3.4 g/dL 3.2-5.0 [facility] Work Phone: Serum or plasma albumin/glob ulin mass ratioon 10-20-2022 Albumin/Globulin [Mass ratio] 0.9 {ratio} 0.9-2.4 [facility] Work Phone: Serum or plasma calcium lucina urement (mass/volume)on 09-07-2022 Calcium [Mass/Vol] 9.4 mg/dL 8.5-10.1 [facility] Work Phone: Serum or plasma cholesterol in HDL measurement (mass/volume)on 09-07-2022 Cholesterol in HDL [Mass/Vol] 73 mg/dL >40 [facility] Work Phone: Comment on above: The drugs N-Acetylcy steine and Metamizole may falsely depress this assay. Reference Range HDL <40 mg/dL Low HDL Cholesterol HDL >or= 60 mg/dL High HDL Cholesterol Serum or plasma cholesterol in VLDL measurement (mass/volume)on 09-07-2022 Cholesterol in VLDL [Mass/Vol] 8 mg/dL 5-40 [facility] Work Phone: Serum or plasma creatinine m easurement (mass/volume)on 09-07-2022 Creatinine [Mass/Vol] 1.00 mg/dL 0.70-1.30 [facility] Work Phone: Comment on above: The validity of the calculated GFR & GFRAA in patients over 70 years has not been determined. Clinical correlation is essential. Serum or plasma low density lipoprotein (LDL) cholesterol measurement (mass/volume)on 09-07-2022 Cholesterol in LDL [Mass/Vol] 60 mg/dL 0-130 [facility] Work Phone: Serum or plasma urea nitroge n measurement (mass/volume)on 09-07-2022 Urea nitrogen [Mass/Vol] 18 mg/dL 7-18 [facility] Work Phone: Thin prep Papanicolaou smear with manual screeningon 09-07-2022 Thin prep Papanicolaou smear with manual screening 37 U/L 15-37 [facility] Work Phone: Thin prep Papanicolaou smear with manual screening 5 5-15 [facility] Work Phone: Thin prep Papanicolaou smear with manual screening 19.3 mg/L NO RANGE EST. [facility] Work Phone: Urine creatinine measurement (mass/volume)on 09-07-2022 Creatinine (U) [Mass/Vol] 200.00 mg/dL NO RANGE EST. [facility] Work Phone: Whole blood hemoglobin A1c/t otal hemoglobin ratio (mass fraction)on 09-07-2022 HbA1c (Bld) [Mass fraction] 6.4 % 3.8-5.6 [facility] Work Phone: Comment on above: Normal < 5.7 % Predi abetic 5.7 - 6.4 % Diabetic >or= 6.5 % Please note range changes. Laboratory - Microbiology an d Antimicrobial susceptibilityon 05-23-2022 SARS-CoV-2 (COVID-19) RNA MAYA+probe Ql (Unsp spec) Detected Not Detect [facility] Work Phone: Comment on above: Normal Reference Ran ge: Not DetectedMethod:(RT-PCR) real-time reverse transcriptase PCRLuminex JULIO Instrument*The Food and Drug Administration (FDA) has issued an Emergency Use Authorization (EAU) for the JULIO SARS-CoV-2 Assay for the rapid detection of the virus that causes COVID-19. This test has been validated, but the FDAs independent review of this validation is pending.*Negative results do not preclude infection and should not be used as the sole basis for treatment or patient management. Optimum specimen types and timing for peak viral levels during infections caused by SARS-CoV-2 have not been determined. Collection of multiple specimens from the same patient may be necessary to detect the virus. The possibility of a false negative result should be considered if the patient has clinical presentation or has had recent exposure. Laboratory - Chemistry and C hemistry - challengeon 03-01-2022 Free T4 [Mass/Vol] 1.04 ng/dL 0.76-1.46 [facility] Work Phone: No Panel Informationon 03-01 Thyroid Stimulating Hormone (TSH) 2.58 uIU/mL 0.358-3.74 [facility] Work Phone: Absolute lymphocyte counton 02-17-2022 Lymphocytes Auto (Unsp spec) [#/Vol] 1.73 10*3/uL 0.83-4.51 [facility] Work Phone: Basophil percentageon 2021 Basophils/100 WBC (Bld) 0.4 % 0-1 [facility] Work Phone: Bilirubin [Mass/Vol] 0.60 mg/dL 0.20-1.00 [facility] Work Phone: Comment on above: For patients on eltr ombopag therapy, use of Dimension [place] TBIL is not recommended. Chloride [Moles/Vol] 104 mmol/L 98-107 [facility] Work Phone: Eosinophils/100 WBC (Bld) 3.1 % 0-5 [facility] Work Phone: Glucose [Mass/Vol] 68 mg/dL 74-106 [facility] Work Phone: Neutrophils (Bld) [#/Vol] 12.1 10*3/uL 2.0-7.7 [facility] Work Phone: Neutrophils/100 WBC (Bld) 79.3 % 47-70 [facility] Work Phone: Potassium [Moles/Vol] 3.6 mmol/L 3.5-5.1 [facility] Work Phone: Comment on above: Slight Hemolysis, Re sult may be falsely increased. Protein [Mass/Vol] 7.5 g/dL 6.4-8.2 [facility] Work Phone: Sodium [Moles/Vol] 139 mmol/L 136-145 [facility] Work Phone: WBC (Bld) [#/Vol] 15.3 10*3/uL 4.4-11.0 [facility] Work Phone: Blood erythrocytes count (nu mber/volume)on 02-17-2022 RBC (Bld) [#/Vol] 5.44 10*6/uL 4.6-6.2 [facility] Work Phone: Blood hemoglobin measurement (mass/volume)on 02-17-2022 Hemoglobin (Bld) [Mass/Vol] 16.2 g/dL 13.0-16.5 [facility] Work Phone: Blood lymphocytes/100 leukoc yteson 02-17-2022 Lymphocytes/100 WBC (Bld) 11.3 % 19-41 [facility] Work Phone: Blood monocytes/100 leukocyt eson 02-17-2022 Monocytes/100 WBC (Bld) 5.6 % 0-10 [facility] Work Phone: Blood platelet mean volumeon 02-17-2022 Platelet mean volume (Bld) [Entitic vol] 10.5 fL 6.2-12.0 [facility] Work Phone: Determination of erythrocyte mean corpuscular volume (MCV)on 02-17-2022 MCV (RBC) [Entitic vol] 86.0 fL 80-94 [facility] Work Phone: Direct bilirubinon 2 Bilirubin.direct [Mass/Vol] 0.13 mg/dL 0.00-0.30 [facility] Work Phone: Glucose Glucometer (BldC) [M ass/Vol]on 02-17-2022 Glucose [Mass/Vol] 73 mg/dL 74-106 [facility] Work Phone: Comment on above: MANAGEMENT OF PATIEN T CARE PER NURSING PROTOCOL Hematocrit Auto (Bld) [Volum e fraction]on 02-17-2022 Hematocrit (Bld) [Volume fraction] 46.8 % 40-54 [facility] Work Phone: Laboratory - Chemistry and C hemistry - challengeon 02-17-2022 ALP [Catalytic activity/Vol] 86 U/L 45-117 [facility] Work Phone: ALT [Catalytic activity/Vol] 43 U/L 16-61 [facility] Work Phone: CO2 [Moles/Vol] 29.0 mmol/L 21.0-32.0 [facility] Work Phone: Globulin (S) [Mass/Vol] 3.5 g/dL 2.2-4.2 [facility] Work Phone: Lipase [Catalytic activity/Vol] 66 U/L 73-393 [facility] Work Phone: Urea nitrogen/Creatinine [Mass ratio] 17.4 mg/mg 10-20 [facility] Work Phone: Laboratory - Hematology and Cell countson 02-17-2022 Erythrocyte distribution width (RBC) [Entitic vol] 40.3 fL 35.1-43.9 [facility] Work Phone: Erythrocyte distribution width (RBC) [Ratio] 13.0 % 11.6-14.6 [facility] Work Phone: Immature granulocytes/100 WBC (Bld) 0.300 % 0.0-0.9 [facility] Work Phone: Comment on above: IG% - Immature Granu locytes (promyelocytes, myelocytes and metamyelocytes) > 1% indicates that a LEFT SHIFT is Present. MCH (RBC) [Entitic mass] 29.8 pg 27.0-32.0 [facility] Work Phone: Nucleated RBC/100 WBC (Bld) [Ratio] 0 % 0-5 [facility] Work Phone: MCHC Auto (RBC) [Mass/Vol]on 02-17-2022 MCHC (RBC) [Mass/Vol] 34.6 g/dL 32-36 [facility] Work Phone: No Panel Informationon 02-17 Estimated Creatinine Clearance Calc 86.35 ml/min [facility] Work Phone: Estimated GFR (MDRD) Amer 92 mL/min >60 [facility] Work Phone: Comment on above: GFR Calc Estimated GFR (MDRD) Non-Af Amer 76 mL/min >60 [facility] Work Phone: Comment on above: Non- GFR Calc Platelets bldon 02-17-2022 Platelets (Bld) [#/Vol] 287 10*3/uL 150-450 [facility] Work Phone: Serum or plasma albumin lucina urement (mass/volume)on 02-17-2022 Albumin [Mass/Vol] 4.0 g/dL 3.2-5.0 [facility] Work Phone: Serum or plasma calcium lucina urement (mass/volume)on 02-17-2022 Calcium [Mass/Vol] 9.3 mg/dL 8.5-10.1 [facility] Work Phone: Serum or plasma creatinine m easurement (mass/volume)on 02-17-2022 Creatinine [Mass/Vol] 1.09 mg/dL 0.70-1.30 [facility] Work Phone: Comment on above: The validity of the calculated GFR & GFRAA in patients over 70 years has not been determined. Clinical correlation is essential. Serum or plasma urea nitroge n measurement (mass/volume)on 02-17-2022 Urea nitrogen [Mass/Vol] 19 mg/dL 7-18 [facility] Work Phone: Thin prep Papanicolaou smear with manual screeningon 02-17-2022 Thin prep Papanicolaou smear with manual screening 41 U/L 15-37 [facility] Work Phone: Comment on above: Slight Hemolysis, Re sult may be falsely increased. Thin prep Papanicolaou smear with manual screening 6 5-15 [facility] Work Phone: Miscellaneous DME EquipmentO rdered By: Caitlyn Ruiz on 02-15-2022 Interpretation and review of laboratory results Abnormal [facility] Whole blood hemoglobin A1c/t otal hemoglobin ratio (mass fraction)on 02-07-2022 HbA1c (Bld) [Mass fraction] 6.7 % 3.8-5.6 [facility] Work Phone: Comment on above: Normal < 5.7 % Predi abetic 5.7 - 6.4 % Diabetic >or= 6.5 % Please note range changes. CNOVon 08-05-2021 CNOV Office Visit (PEDSWS) -------- [place] ([id number]) 1970 M Date Time Provider Department 08/05/21 5:00 PM NURSE PEDS [facility] During your visit today, we recorded the following information about you: Referring Provider: SELF [[id number]] Allergies As of Date: 08/05/2021 Noted Allergy Reaction PHENERGAN (PROMETHAZINE HCL) 01/12/2010 Comments: anxiety Date Reviewed: 07/30/2014 Reviewed by: Jannet Neal Lpn - Fully Assessed Reason for Visit: Imm/Inj [58] Primary Visit Diagnosis:Encounte r for immunization [Z23] Order(s):INFLUENZA VACCINE QUADRIVALENT 6 MO - 64 YRS IM [[id number]] Order #: [id number] Prescriptions as of 08/05/2021 - insulin aspart (NOVOLOG) 100 unit/mL soln Inject subcutaneously. as directed in insulin pump up to 90 units daily - omeprazole (PRILOSEC) 20 mg capsule Take 20 mg by mouth twice daily. - fluticasone (FLONASE) 50 mcg/actuation nasal spray Use 1 [place] in each nostril once daily. - enalapril 20 mg tablet Take 1 tablet by mouth once daily. - insulin glargine (LANTUS SOLOSTAR) 100 unit/mL (3 mL) SUBCUTANEOUS InPn use as directed if pump fails - glucagon, human recombinant, (GLUCAGON EMERGENCY) 1 mg INJECTION injection Inject one(1) mg as needed for insulin shock. - theophylline anhydrous(ESEQUIEL-24 300 MG 24 HR CAP) Take 1/2 tablet daily - naproxen sodium(ALEVE 220 MG TAB) as necessary - ASPIRIN 81 MG TAB Take one (1) tablet daily . - FREESTYLE TEST STRIPS use as directed x 8/day Problem List As Of Date 08/05/2021 Noted Resolved Diabetes mellitus type 1 [E10.49, E10.65] Elev Transaminase/LDH [R74.01, R74.02] Encounter Status:Closed by ALINA KENDRICK RN on 08/05/21 Normal [facility] Office Visit: Diabetes Folow Upon 10-03-2017 Documentation of current medications (procedure) Done Invalid Interpretation Code [facility] Work Phone: Chart Maintenanceon 07-17-20 17 HbA1c (Bld) [Mass fraction] 6.7 % Invalid Interpretation Code [facility] [email or web address] [facility] Work Phone: Office Visit: Transfer of ivonne re from [facility] 04-23-2017 Adolescent depression screening assessment Adolescent depression screening assessment Invalid Interpretation Code [facility] Work Phone: Adult depression screening assessment Adult depression screening assessment Invalid Interpretation Code [facility] Work Phone: Dietary management education, guidance, and counseling (procedure) yes Invalid Interpretation Code [facility] Work Phone: Fall risk assessment No Invalid Interpretation Code [facility] Work Phone: Tobacco smoking status Never Invalid Interpretation Code [facility] Work Phone: Tobacco use status [facility] Never smoker Invalid Interpretation Code [facility] Work Phone: Vital Signs Date Time Vital Sign Value Performing Clinician Facility 07-12-2025 11:24-0400 Body temperature 97.9 [degF] Krislyn Aberegg PA Work Phone: [facility] [facility] 07-[facility]-2025 11:24-0400 Body weight 98.1 kg Krislyn Aberegg PA Work Phone: [facility] 07-12-2025 11:24-0400 Diastolic blood pressure 72 mm[Hg] Krislyn Aberegg PA Work Phone: [facility] 07-12-2025 11:24-0400 Heart rate 73 /min Krislyn Aberegg PA Work Phone: [facility] 07-12-2025 11:24-0400 Respiratory rate 16 /min Krislyn Aberegg PA Work Phone: [facility] 07-12-2025 11:24-0400 SaO2% (BldA) [Mass fraction] 98 % Krislyn Aberegg PA Work Phone: [facility] 07-12-2025 11:24-0400 Systolic blood pressure 122 mm[Hg] Krislyn Aberegg PA Work Phone: [facility] 06-01-2025 08:53-0400 Body mass index (BMI) [Ratio] 29.39 kg/m2 Nelida Blanco SUMMER ASSOCIATE Work Phone: [facility] 06-01-2025 08:53-0400 Body weight 95.57 kg Nelida Blanco SUMMER ASSOCIATE Work Phone: [facility] 06-01-2025 08:53-0400 Diastolic blood pressure 80 mm[Hg] Nelida Blanco SUMMER ASSOCIATE Work Phone: [facility] 06-01-2025 08:53-0400 Heart rate 65 /min Nelida Blanco SUMMER ASSOCIATE Work Phone: [facility] 06-01-2025 08:53-0400 Systolic blood pressure 136 mm[Hg] Nelida Blanco SUMMER ASSOCIATE Work Phone: [facility] 12-01-2024 09:03-0500 Diastolic blood pressure 74 mm[Hg] Nelida Blanco SUMMER ASSOCIATE Work Phone: [facility] 12-01-2024 09:03-0500 Systolic blood pressure 126 mm[Hg] Nelida Blanco SUMMER ASSOCIATE Work Phone: [facility] 12-01-2024 08:37-0500 Heart rate 69 /min Nelida Blanco SUMMER ASSOCIATE Work Phone: [facility] 12-01-2024 08:22-0500 Body mass index (BMI) [Ratio] 29.78 kg/m2 Nelida Blanco SUMMER ASSOCIATE Work Phone: [facility] 12-01-2024 08:22-0500 Body weight 96.84 kg Nelida Blanco SUMMER ASSOCIATE Work Phone: [facility] 05-26-2024 08:56-0400 Body mass index (BMI) [Ratio] 29.54 kg/m2 Nelida Blanco SUMMER ASSOCIATE Work Phone: [facility] 05-26-2024 08:56-0400 Body weight 96.07 kg Nelida Blanco SUMMER ASSOCIATE Work Phone: [facility] 05-26-2024 08:56-0400 Diastolic blood pressure 87 mm[Hg] Nelida Blanco SUMMER ASSOCIATE Work Phone: [facility] 05-26-2024 08:56-0400 Heart rate 60 /min Nelida Blanco SUMMER ASSOCIATE Work Phone: [facility] 05-26-2024 08:56-0400 Systolic blood pressure 137 mm[Hg] Nelida Blanco SUMMER ASSOCIATE Work Phone: [facility] 11-26-2023 14:29-0500 Body mass index (BMI) [Ratio] 29.36 kg/m2 Nelida Blanco SUMMER ASSOCIATE Work Phone: [facility] 11-26-2023 14:29-0500 Body weight 95.48 kg Nelida Blanco SUMMER ASSOCIATE Work Phone: [facility] 11-26-2023 14:29-0500 Diastolic blood pressure 83 mm[Hg] Nelida Blanco SUMMER ASSOCIATE Work Phone: [facility] 11-26-2023 14:29-0500 Heart rate 66 /min Nelida Blanco SUMMER ASSOCIATE Work Phone: [facility] 11-26-2023 14:29-0500 Systolic blood pressure 132 mm[Hg] Nelida Blanco SUMMER ASSOCIATE Work Phone: [facility] 03-28-2023 08:04-0400 Body mass index (BMI) [Ratio] 28.41 kg/m2 Derrek Bender PA-C Work Phone: [facility] 03-28-2023 08:04-0400 Body weight 92.4 kg Derrek Bender PA-C Work Phone: [facility] 03-28-2023 08:04-0400 Diastolic blood pressure 85 mm[Hg] Derrek Bender PA-C Work Phone: [facility] 03-28-2023 08:04-0400 Heart rate 66 /min Derrek Bender PA-C Work Phone: [facility] 03-28-2023 08:04-0400 Systolic blood pressure 133 mm[Hg] Derrek Bender PA-C Work Phone: [facility] 08-03-2022 11:10-0400 Body height 180.[address] Yessi Cuevas Work Phone: [facility] Work Phone: 08-03-2022 11:10-0400 Body mass index (BMI) [Ratio] 29.4 kg/m2 Dr. Yessi Cuevas Work Phone: [facility] Work Phone: 08-03-2022 11:10-0400 Body weight 95.[address] Yessi Cuevas Work Phone: [facility] Work Phone: 02-17-2022 03:12-0400 Respiratory rate 16 /min [facility] Work Phone: 02-17-2022 00:37-0400 Body height 180.34 cm [facility] Work Phone: 02-17-2022 00:37-0400 Body mass index (BMI) [Ratio] 28.9 kg/m2 [facility] Work Phone: 02-17-2022 00:37-0400 Body temperature 98 [degF] [facility] Work Phone: 02-17-2022 00:37-0400 Body weight 94.1 kg [facility] Work Phone: 02-17-2022 00:37-0400 Diastolic blood pressure 86 mm[Hg] [facility] Work Phone: 02-17-2022 00:37-0400 Heart rate 77 /min [facility] Work Phone: 02-17-2022 00:37-0400 SaO2% (BldA) [Mass fraction] 98 % [facility] Work Phone: 02-17-2022 00:37-0400 Systolic blood pressure 143 mm[Hg] [facility] Work Phone: 02-13-2022 15:02-0400 Body height 180.4 cm Derrek KleinnetFactor PA-C Work Phone: [facility] 02-13-2022 15:02-0400 Body mass index (BMI) [Ratio] 29.16 kg/m2 Derrek Kleinmann PA-C Work Phone: [facility] 02-13-2022 15:02-0400 Body weight 94.94 kg Derrek Kleinmann PA-C Work Phone: [facility] 02-13-2022 15:02-0400 Diastolic blood pressure 81 mm[Hg] Derrek Ryanmann PA-C Work Phone: [facility] 02-13-2022 15:02-0400 Heart rate 61 /min Derrek Ryanmann PA-C Work Phone: [facility] 02-13-2022 15:02-0400 Systolic blood pressure 126 mm[Hg] Derrek Kleinmann PA-C Work Phone: [facility] 11-04-2020 11:33-0500 BMI (Body Mass Index) 28.21 kg/m2 Nelida Blanco [facility] 11-04-2020 11:33-0500 Body weight 91.85 kg Nelida Blanco [facility] 11-04-2020 11:33-0500 BP Diastolic 80 mm[Hg] Nelida Blanco [facility] 11-04-2020 11:33-0500 BP Systolic 134 mm[Hg] Nelida Blanco [facility] 11-04-2020 11:33-0500 Height 180.4 cm Nelida Blanco [facility] 11-04-2020 11:33-0500 Pulse (Heart Rate) 59 /min Nelida Blanco [facility] 09-02-2019 09:00-0400 BMI (Body Mass Index) 28.14 kg/m2 Nelida Blanco [facility] 09-02-2019 09:00-0400 Body weight 91.63 kg Nelida Blanco [facility] 09-02-2019 09:00-0400 BP Diastolic 87 mm[Hg] Nelida Blanco [facility] 09-02-2019 09:00-0400 BP Systolic 129 mm[Hg] Nelida Blanco [facility] 09-02-2019 09:00-0400 Height 180.4 cm Nelida Blanco [facility] 09-02-2019 09:00-0400 Pulse (Heart Rate) 57 /min Nelida Blanco [facility] 04-25-2019 13:06-0400 BMI (Body Mass Index) 29.71 kg/m2 Hoa Hankins [facility] 04-25-2019 13:06-0400 BP Diastolic 79 mm[Hg] Hoa Hankins [facility] 04-25-2019 13:06-0400 BP Systolic 123 mm[Hg] Hoa Hankins [facility] 04-25-2019 13:06-0400 Height 180.3 cm Hoa Hankins [facility] 04-25-2019 13:06-0400 Pulse (Heart Rate) 60 /min Hoa Hankins [facility] 04-25-2019 13:06-0400 Weight 96.62 kg Hoa Hankins [facility] 10-03-2017 09:07-0500 BMI (Body Mass Index) 30.44 kg/m2 [facility] Work Phone: 10-03-2017 09:07-0500 Body Temperature 98.3 [degF] [facility] Work Phone: 10-03-2017 09:07-0500 BP Diastolic 74 mm[Hg] [facility] Work Phone: 10-03-2017 09:07-0500 BP Systolic 122 mm[Hg] [facility] Work Phone: 10-03-2017 09:07-0500 Height 177.8 cm [facility] Work Phone: 10-03-2017 09:07-0500 Pulse (Heart Rate) 68 /min Eva Nelson LPN [facility] Work Phone: 10-03-2017 09:07-0500 Respiratory Rate 18 /min Eva Nelson [facility] Work Phone: 10-03-2017 09:07-0500 Weight 96.25 kg Eva Nelson LPN [facility] Work Phone: 07-26-2017 08:07-0400 Body height 177.8 cm Eva Nelson [facility]PN [facility] Work Phone: 07-26-2017 08:07-0400 Body mass index (BMI) [Ratio] 30.42 kg/m2 Eva Nelson LPN [facility] Work Phone: 07-26-2017 08:07-0400 Body temperature 97.5 [degF] Eva Nelson [facility] Work Phone: 07-26-2017 08:07-0400 Body weight 96.16 kg Eva Nelson [facility]PN [facility] Work Phone: 07-26-2017 08:07-0400 Diastolic blood pressure 73 mm[Hg] Eva Nelson LPN [facility] Work Phone: 07-26-2017 08:07-0400 Heart rate 58 /min Eva Nelson [facility]PN [facility] Work Phone: 07-26-2017 08:07-0400 Respiratory rate 18 /min Eva Nelson [facility] Work Phone: 07-26-2017 08:07-0400 Systolic blood pressure 112 mm[Hg] Eva Nelson LPN [facility] Work Phone: 04-23-2017 16:33-0400 Body height 177.8 cm Adriana Esapña HISTOLOGIC AIDE Work Phone: [facility] Work Phone: 04-23-2017 16:33-0400 Body mass index (BMI) [Ratio] 30.27 kg/m2 Adriana Larryok HISTOLOGIC AIDE Work Phone: [facility] Work Phone: 04-23-2017 16:33-0400 Body temperature 98.8 [degF] Adriana Larryok HISTOLOGIC AIDE Work Phone: [facility] Work Phone: 04-23-2017 16:33-0400 Body weight 95.71 kg Adriana España HISTOLOGIC AIDE Work Phone: [facility] Work Phone: 04-23-2017 16:33-0400 Diastolic blood pressure 76 mm[Hg] Adriana Larryok HISTOLOGIC AIDE Work Phone: [facility] Work Phone: 04-23-2017 16:33-0400 Heart rate 57 /min Adriana Larryok HISTOLOGIC AIDE Work Phone: [facility] Work Phone: 04-23-2017 16:33-0400 Respiratory rate 16 /min Adriana España HISTOLOGIC AIDE Work Phone: [facility] Work Phone: 04-23-2017 16:33-0400 SaO2% (BldA) [Mass fraction] 95 % Adriana España HISTOLOGIC AIDE Work Phone: [facility] Work Phone: 04-23-2017 16:33-0400 Systolic blood pressure 117 mm[Hg] Adriana Larryok HISTOLOGIC AIDE Work Phone: [facility] Work Phone: 04-23-2017 16:33-0400 Weight 95.71 kg Eva Nelson LPN [facility] Work Phone: 01-27-2014 14:18-0400 Body surface area Derived from formula 2.1 m2 Adriana España HISTOLOGIC AIDE Work Phone: [facility] Work Phone: Encounters Encounter Date Encounter Type Care Provider Facility Start: 07-12-2025 End: 07-12-2025 Patient encounter procedure Thelma ALVAREZ Work Phone: [facility] Comment on above: Bacterial sinusitis (Primary Dx) Start: 06-24-2025 End: 06-24-[address] Yessi Cuevas MD Work Phone: [facility] [place] Start: 06-24-2025 End: 06-24-[address] Bradford Finn MD -[facility] [place] Work Phone: Start: 06-24-2025 End: 06-24-2025 ambulatory Bradford Finn Facility:[facility] Start: 06-01-2025 End: 06-01-2025 Office outpatient visit 25 minutes Nelida Blanco SUMMER ASSOCIATE Work Phone: [facility] [place] Comment on above: Type 1 diabetes adriel itus with diabetic autonomic neuropathy (HCC) (Primary Dx); Hypothyroidism, unspecified type Start: 06-01-2025 End: 06-01-2025 ambulatory YESSI ROUSSEAU [facility] Start: 05-28-2025 End: 05-28-2025 ambulatory YESSI [facility] Start: 05-28-2025 End: 05-28-2025 Patient encounter procedure Nelida Blanco HISTOLOGIC AIDE-C -[facility] [place] Work Phone: Start: 05-28-2025 End: 05-28-2025 ambulatory Nelida Blanco Facility:[facility] Start: 03-21-2025 End: 03-23-2025 Refill Nelida Blanco SUMMER ASSOCIATE Work Phone: [facility] Comment on above: Type 1 diabetes adriel itus with diabetic autonomic neuropathy (HCC) Start: 03-20-2025 ambulatory YESSI CUEVAS [facility] Ambulatory Start: 12-01-2024 End: 12-01-2024 Office outpatient visit 25 minutes Nelida Blanco SUMMER ASSOCIATE Work Phone: [facility] [place] Comment on above: Type 1 diabetes adriel itus with diabetic autonomic neuropathy (HCC) (Primary Dx) Start: 12-01-2024 End: 12-01-2024 ambulatory YESSI CUEVAS [facility] Start: 12-01-2024 ambulatory YESSI CUEVAS [facility] Ambulatory Start: 11-28-2024 End: 11-28-2024 ambulatory AISHA HARRISON Facility:[facility] Start: 11-10-2024 End: 11-10-2024 ambulatory Yessi Cuevas Facility:[facility] Start: 05-26-2024 End: 05-26-2024 Office outpatient visit 25 minutes Nelida Blanco CNP Work Phone: [facility] [place] Comment on above: Type 1 diabetes adriel itus with diabetic autonomic neuropathy (HCC) (Primary Dx) Start: 04-08-2024 Refill Nelida Blanco CNP Work Phone: [facility] Comment on above: Type 1 diabetes adriel itus with diabetic autonomic neuropathy (HCC) Start: 11-26-2023 End: 11-26-2023 Office outpatient visit 25 minutes Nelida Blanco CNP Work Phone: [facility] [place] Comment on above: Type 1 diabetes adriel itus with diabetic autonomic neuropathy (HCC) (Primary Dx) Start: 11-26-2023 End: 11-26-2023 ambulatory [facility] Work Phone: Start: 11-26-2023 End: 11-26-2023 Patient encounter procedure [facility] Work Phone: Start: 03-28-2023 End: 03-28-2023 Office outpatient visit 25 minutes Derrek Bender PA-C Work Phone: [facility] Comment on above: Type 1 diabetes adriel itus with diabetic autonomic neuropathy (HCC) (Primary Dx) Start: 03-21-2023 Non-patient / Non-visit Dr. Yessi Cuevas Work Phone: [facility] Start: 03-21-2023 End: 03-21-[address] Yessi Cuevas Work Phone: [facility] Work Phone: Start: 03-21-2023 End: 03-21-[address] Yessi Cuevas Work Phone: [facility]Cardi[facility] Start: 03-05-2023 Refill Derrek Bender PA-C Work Phone: [facility] Comment on above: Type 1 diabetes adriel itus with diabetic autonomic neuropathy (HCC) Start: 10-26-2022 End: 10-26-[address] Yessi Cuevas Work Phone: [facility] Work Phone: Start: 10-26-2022 End: 10-26-[address] Yessi Cuevas Work Phone: [facility]-Physical Therapy Start: 09-07-[address] Yessi Cuevas Work Phone: [facility] Start: 08-07-2022 End: 08-07-[address] Yessi Cuevas Work Phone: [facility] Start: 08-03-2022 End: 08-03-[address] Yessi Cuevas Work Phone: [facility] Start: 05-23-2022 End: 05-23-2022 Patient encounter procedure [facility]Laboratory, Specimen Start: 05-10-[address] [facility] Start: 03-01-2022 Patient encounter procedure [facility] Start: 02-17-2022 End: 02-17-2022 Emergency department patient visit [facility]Emergency Department Start: 02-13-2022 End: 02-13-2022 Office outpatient visit 25 minutes Derrek Bender PA-C Work Phone: [facility] Comment on above: Type 1 diabetes adriel itus with diabetic autonomic neuropathy (HCC) (Primary Dx) Start: 02-07-2022 End: 02-07-2022 Patient encounter procedure [facility] Start: 01-26-2022 Orders Only Hoa De La Fuente MD Work Phone: [facility] Comment on above: Type 1 diabetes adriel itus with diabetic autonomic neuropathy (HCC) (Primary Dx) Start: 01-06-2022 Orders Only Derrek Bender PA-C Work Phone: [facility] Comment on above: Type 1 diabetes adriel itus with diabetic autonomic neuropathy (HCC) (Primary Dx) Start: 12-04-2021 Refill Nelida Blanco CNP Work Phone: [facility] Start: 09-18-2021 Refill Derrek Bender PA-C Work Phone: [facility] Comment on above: Type 1 diabetes adriel itus with diabetic autonomic neuropathy (HCC) Start: 01-25-2021 End: 01-25-2021 Orders Only Macey Latanya Castillo Work Phone: [facility] Start: 11-04-2020 End: 11-04-2020 Office outpatient visit 25 minutes Nelida Blanco Work Phone: [facility] Comment on above: Type 1 diabetes adriel itus with diabetic autonomic neuropathy (HCC) (Primary Dx) Start: 09-02-2019 End: 09-02-2019 Office outpatient visit 25 minutes Nelida Blanco Work Phone: [facility] Comment on above: Type 1 diabetes adriel itus with diabetic autonomic neuropathy (HCC) (Primary Dx) Start: 04-25-2019 End: 04-25-2019 Office outpatient new 45 minutes Yessi Cuevas Work Phone: [facility] Comment on above: Type 1 diabetes adriel itus with diabetic autonomic neuropathy (HCC) (Primary Dx); Poor control type I diabetes mellitus (HCC) Procedures Date Procedure Procedure Detail Performing Clinician Start: 06-24-2025 Plain x-ray of pelvi s and lower extremity Dr. Yessi Cuevas MD Work Phone: Start: 06-01-2025 External public relations counselor, CGM sys Nelida Blanco SUMMER ASSOCIATE Work Phone: Start: 11-26-2023 External public relations counselor, CGM sys Nelida Blanco SUMMER ASSOCIATE Work Phone: Start: 11-26-2023 Microalbumin [Mass/v olume] in Urine by Test strip Nelida Blanco SUMMER ASSOCIATE Work Phone: Start: 03-28-2023 External public relations counselor, CGM sys Derrek Bender PA-C Work Phone: Start: 03-28-2023 Hemoglobin glycosylated a1c Derrek Bender PA-C Work Phone: Start: 03-28-2023 3 comp foot exam completed Derrek Bender PA-C Work Phone: Start: 09-11-2022 3 comp foot exam completed Derrek Bender PA-C Work Phone: Start: 09-07-2022 Microalbumin [Mass/v olume] in Urine by Test strip Derrek Bender PA-C Work Phone: Start: 08-03-2022 Plain X-ray of shoulder Dr. Yessi Cuevas Work Phone: Start: 02-13-2022 MISCELLANEOUS DME EQUIPMENT Derrek Bender PA-C Work Phone: Start: 02-13-2022 3 comp foot exam completed Derrek eBnder PA-C Work Phone: Start: 11-04-2020 3 comp [...] medications Adriana España NP Work Phone: Start: 07-30-2014 Lipid 1996 panel - S peña or Plasma Thelma ALVAREZ Work Phone: Start: 02-13-2014 Exc tumor soft tissu e neck/thorax subfasc 5 cm/> Chani Mullen Donahue Work Phone: Start: 02-13-2014 Exc tumor soft tissu e neck/thorax subfasc 5 cm/> Chani Mullen Godfrey Work Phone: Plan of Treatment Date Care Activity Detail Author Start: 02-08-2031 Tetanus vaccination Tetanus: Every 1 0yrs [facility] Start: 02-08-2031 Urine microalbumin profile DTaP,Tdap,Td Vaccine (2 - Td or Tdap) [facility] Start: 06-01-2026 Diabetic foot examination Diabetic Foot Exam [facility] Start: 05-28-2026 eGFR Diabetes eGFR Diabetes [facility] Start: 12-07-2025 End: 12-07-2025 Patient encounter procedure 12/07/2025 9:00 AM EST Office Visit [facility] [place] [address] [place] [address] Nelida Blanco, SUMMER ASSOCIATE [address] [place] [id number] [facility] [place] Start: 12-01-2025 Diabetic foot examination Diabetic Foot Exam [facility] Start: 11-28-2025 Hemoglobin A1c measurement A1C [facility] Start: 11-28-2025 Urine screening for protein eGFR Diabetes [facility] Start: 11-16-2025 End: 06-02-2026 Complete blood count with white cell differential, manual CBC and Differential Lab Routine Hypothyroidism, unspecified type Expected: 11/16/2025, Expires: 06/02/2026 [facility] Work Phone: Comment on above: Expected: 11/16/2025 , Expires: 06/02/2026 Start: 11-16-2025 End: 06-02-2026 Comprehensive metabolic 2000 panel - Serum or Plasma Comprehensive Metabolic Panel Lab Routine Hypothyroidism, unspecified type Expected: 11/16/2025, Expires: 06/02/2026 [facility] Comment on above: Expected: 11/16/2025 , Expires: 06/02/2026 Start: 11-16-2025 End: 06-02-2026 Hemoglobin A1c/Hemoglobin.total in Blood Hemoglobin A1c Lab Routine Hypothyroidism, unspecified type Expected: 11/16/2025, Expires: 06/02/2026 [facility] Comment on above: Expected: 11/16/2025 , Expires: 06/02/2026 Start: 11-16-2025 End: 06-02-2026 Lipid 1996 panel - Serum or Plasma Lipid Panel Lab Routine Hypothyroidism, unspecified type Expected: 11/16/2025, Expires: 06/02/2026 [facility] Comment on above: Expected: 11/16/2025 , Expires: 06/02/2026 Start: 11-16-2025 End: 06-01-2026 Microalbumin measurement, urine, quantitative Microalbumin/Creatinin e Ratio, UR Random Lab Routine Hypothyroidism, unspecified type Expected: 11/16/2025, Expires: 06/01/2026 [facility] Comment on above: Expected: 11/16/2025 , Expires: 06/01/2026 Start: 11-16-2025 End: 06-02-2026 Thyrotropin [Units/volume] in Serum or Plasma TSH Lab Routine Hypothyroidism, unspecified type Expected: 11/16/2025, Expires: 06/02/2026 [facility] Comment on above: Expected: 11/16/2025 , Expires: 06/02/2026 Start: 11-16-2025 End: 06-02-2026 Thyroxine (T4) free [Mass/volume] in Serum or Plasma T4, Free Lab Routine Hypothyroidism, unspecified type Expected: 11/16/2025, Expires: 06/02/2026 [facility] Comment on above: Expected: 11/16/2025 , Expires: 06/02/2026 Start: 07-20-2025 Influenza vaccination [facility] Start: 06-01-2025 End: 06-01-2025 Patient encounter procedure 06/01/2025 9:00 AM EDT Office Visit [facility] [address] [address] Nelida Blanco, WILLIAM [address] [place] [address] [facility] Start: 05-28-2025 Hemoglobin A1c measurement A1C [facility] Start: 05-26-2025 Diabetic foot examination Diabetic Foot Exam [facility] Start: 12-01-2024 End: 12-01-2024 Patient encounter procedure 12/01/2024 8:30 AM EST Office Visit [facility] [address] [place] [address] Nelida Blanco, WILLIAM [address] [place] [address] [facility] Start: 11-26-2024 Diabetic foot examination Diabetic Foot Exam [facility] Start: 11-26-2024 Urine screening for protein [facility] Start: 11-23-2024 Hemoglobin A1c measurement A1C [facility] Start: 07-20-2024 COVID-19 Vaccine ( season) COVID-19 Vaccine ( season) [facility] Start: 07-20-2024 Influenza vaccination [facility] Start: 05-26-2024 Hemoglobin A1c measurement A1C [facility] Start: 05-26-2024 End: 05-26-2024 Patient encounter procedure 05/26/2024 9:00 AM EDT Office Visit [facility] [address] [place] [address] Nelida Blanco, WILLIAM [address] [place] [address] [facility] Start: 03-28-2024 Diabetic foot examination Foot Exam [facility] Start: 09-28-2023 Hemoglobin A1c measurement A1C [facility] Start: 09-11-2023 Diabetic foot examination Foot Exam [facility] Start: 09-07-2023 Urine screening for protein Urine Microalbumin [facility] Start: 08-03-2023 End: 08-03-2023 Patient encounter procedure 08/03/2023 8:00 AM EDT Office Visit [facility] [address] [place] [address] Nelida Blanco CNP [address] [place] [address] [facility] [place] Start: 07-20-2023 COVID-19 Vaccine () COVID-19 Vaccine () [facility] Start: 07-20-2023 Influenza vaccination [facility] Start: 03-12-2023 End: 03-12-2023 Patient encounter procedure 03/12/2023 2:15 PM EDT Office Visit [facility] [address] [place] [address] Nelida Blanco CNP [address] [place] [address] [facility] [place] Start: 03-08-2023 Hemoglobin A1c measurement A1C [facility] Start: 02-13-2023 Diabetic foot examination Foot Exam [facility] Start: 08-10-2022 Hemoglobin A1c measurement A1C [facility] Start: 06-14-2022 End: 06-14-2022 Patient encounter procedure 06/14/2022 Office Visit Endocrinology Derrek Bender PA-C [address] [place] [address] [facility] Start: 02-13-2022 End: 02-13-2022 Patient encounter procedure 02/13/2022 Office Visit Endocrinology Derrek Bender PA-C [address] [place] [address] [facility] Start: 11-04-2021 Diabetic foot examination Foot Exam [facility] Start: 07-20-2021 Influenza vaccination Sequenti al Influenza Vaccine (#1) [facility] Start: 07-05-2021 Microalbumin measurement, urine, quantitative Urine Microalbumin [facility] Start: 05-03-2021 HbA1c (Bld) [Mass fraction] A1C [facility] Start: 05-03-2021 Hemoglobin A1c measurement A1C [facility] Start: 2021 Administration of he rpes zoster vaccine Zoster Vaccines (1 of 2) [facility] Start: 2021 Pneumococcal Vaccine : 50+ (1 of 1 - PCV) Pneumococcal Vaccine: 50+ (1 of 1 - PCV) [facility] Start: 2021 Screening for malign ant neoplasm of colon [facility] Start: 2021 Shingrix Vaccine (1 of 2) Shingrix Vaccine (1 of 2) [facility] Start: 03-03-2021 End: 03-03-2021 Office Visit 03/03/2021 Office Visit Endocrinology Jordana Castrejon PA-C [address] [place] [id number] [phone] [facility] Start: 02-18-2021 End: 11-05-2021 Comprehensive metabolic 2000 panel Comprehensive Metabolic Panel Lab Routine Type 1 diabetes mellitus with diabetic autonomic neuropathy (HCC) Expected: 02/18/2021, Expires: 11/05/2021 [facility] Comment on above: Expected: 02/18/2021 , Expires: 11/05/2021 Start: 02-18-2021 End: 11-05-2021 Free T4 [Mass/Vol] T4, Free Lab Routine Type 1 diabetes mellitus with diabetic autonomic neuropathy (HCC) Expected: 02/18/2021, Expires: 11/05/2021 [facility] Comment on above: Expected: 02/18/2021 , Expires: 11/05/2021 Start: 02-18-2021 End: 11-05-2021 HbA1c (Bld) [Mass fraction] Hemoglobin A1c Lab Routine Type 1 diabetes mellitus with diabetic autonomic neuropathy (HCC) Expected: 02/18/2021, Expires: 11/05/2021 [facility] Comment on above: Expected: 02/18/2021 , Expires: 11/05/2021 Start: 02-18-2021 End: 11-05-2021 TSH Qn TSH Lab Routine Type 1 diabetes mellitus with diabetic autonomic neuropathy (HCC) Expected: 02/18/2021, Expires: 11/05/2021 [facility] Comment on above: Expected: 02/18/2021 , Expires: 11/05/2021 Start: 07-20-2020 Influenza vaccinatio n given Sequential Influenza Vaccine (#1) [facility] Start: 04-25-2020 Diabetic foot examination FOOT EXAM [facility] Start: 03-29-2020 Diabetes Screening Diabetes Screenin g [facility] Start: 03-02-2020 HbA1c (Bld) [Mass fraction] A1C [facility] Start: 01-05-2020 End: 01-05-2020 Office Visit 01/05/2020 Office Visit Endocrinology Maki Ramirez, WILLIAM [address] [address] [phone] [facility] Start: 10-21-2019 Hemoglobin A1c/Hemoglobin.total mass fraction (Bld) A1C [facility] Start: 09-01-2019 End: 09-01-2019 Office Visit 09/01/2019 Office Visit Endocrinology Hoa Hankins MD [address] [address] [phone] [facility] Start: 07-30-2019 Lipid panel Lipid Screening [facility] Start: 07-20-2019 Influenza vaccinatio n given [facility] Start: 07-26-2017 End: 08-04-2017 *CMP Complete Metabolic Panel *CMP Complete Metabolic Panel [facility] Work Phone: Start: 07-26-2017 End: 08-04-2017 *Microalbumin, Creatine Ratio, rand urine *Microalbumin, Creatine Ratio, rand urine [facility] Work Phone: Start: 07-26-2017 End: 08-04-2017 Hemoglobin A1c/Hemoglobin.total mass fraction (Bld) *HgA1C [facility] Work Phone: Start: 07-26-2017 End: 08-04-2017 Lipid panel [AGGREGATE] *Lipid Profile [facility] Work Phone: Start: 07-26-2017 End: 08-04-2017 *CMP Complete Metabolic Panel *CMP Complete Metabolic Panel [facility] Work Phone: Start: 07-26-2017 End: 08-04-2017 *Microalbumin, Creatine Ratio, rand urine *Microalbumin, Creatine Ratio, rand urine [facility] Work Phone: Start: 07-26-2017 End: 08-04-2017 Hemoglobin A1c/Hemoglobin.total in Blood *HgA1C [facility] Work Phone: Start: 07-26-2017 End: 08-04-2017 Lipid 1996 panel - Serum or Plasma *Lipid Profile [facility] Work Phone: Start: 04-23-2017 End: 04-29-2017 *CMP Complete Metabolic Panel *CMP Complete Metabolic Panel [facility] Work Phone: Start: 04-23-2017 End: 04-29-2017 *Microalbumin, Creatine Ratio, rand urine *Microalbumin, Creatine Ratio, rand urine [facility] Work Phone: Start: 04-23-2017 End: 04-29-2017 Hemoglobin A1c/Hemoglobin.total mass fraction (Bld) *HgA1C [facility] Work Phone: Start: 04-23-2017 End: 04-29-2017 Lipid panel [AGGREGATE] *Lipid Profile [facility] Work Phone: Start: 04-23-2017 End: 04-29-2017 *CMP Complete Metabolic Panel *CMP Complete Metabolic Panel [facility] Work Phone: Start: 04-23-2017 End: 04-29-2017 *Microalbumin, Creatine Ratio, rand urine *Microalbumin, Creatine Ratio, rand urine [facility] Work Phone: Start: 04-23-2017 End: 04-29-2017 Hemoglobin A1c/Hemoglobin.total in Blood *HgA1C [facility] Work Phone: Start: 04-23-2017 End: 04-29-2017 Lipid 1996 panel - Serum or Plasma *Lipid Profile [facility] Work Phone: Start: 2016 Screening for malign ant neoplasm of colon [facility] Start: 1990 Hepatitis B Vaccine (1 of 3 - 19+ 3-dose series) Hepatitis B Vaccine (1 of 3 - 19+ 3-dose series) [facility] Start: 1990 Pneumococcal Vaccine : Age 50+ (1 of 2 - PCV) Pneumococcal Vaccine: Age 50+ (1 of 2 - PCV) [facility] Start: 1989 Anxiety Screening Anxiety Screening [facility] Start: 1989 Depression Screening Depression Scre ening [facility] Start: 1989 Hepatitis C antibody , confirmatory test Hepatitis C Screening [facility] Start: 1989 Hepatitis C screening Hepatitis C Sc reening [facility] Start: 1989 HIV screening HIV Screening [facility] Start: 1987 COVID-19 Vaccine (1 of 2) COVID-19 Vaccine (1 of 2) [facility] Start: 1986 HIV screening HIV Screening [facility] Start: 1983 Adolescent depressio n screening assessment Depression Screening (PHQ9) [facility] Start: 1983 COVID-19 Vaccine (1) COVID-19 Vaccin e (1) [facility] Start: 1983 Depression screening using PHQ-9 (Patient Health Questionnaire 9) score [facility] Start: 1981 Albumin DL <= 20 mg/ L mass conc (U) URINE MICROALBUMIN [facility] Start: 1981 Diabetic foot examination FOOT EXAM [facility] Start: 1981 Glaucoma screening [facility] Start: 1981 Ophthalmic examinati on and evaluation Ophthalmology Exam [facility] Start: 1977 Pneumococcal Vaccine : Ped or At-Risk (1 - PCV) Pneumococcal Vaccine: Ped or At-Risk (1 - PCV) [facility] Start: 1977 Pneumococcal Vaccine : Ped or At-Risk (1 of 2 - PCV) Pneumococcal Vaccine: Ped or At-Risk (1 of 2 - PCV) [facility] Start: 1977 Pneumococcal Vaccine : Ped or At-Risk (1 of 2 - PPSV23) Pneumococcal Vaccine: Ped or At-Risk (1 of 2 - PPSV23) [facility] Start: 1976 COVID-19 Vaccine (1) COVID-19 Vaccin e (1) [facility] Start: 1974 History and physical examination, annual for health maintenance Wellness Visit [facility] Start: 1971 COVID-19 Vaccine (#1) COVID-19 Vacci ne (#1) [facility] Start: 1971 Prostate specific antigen measurement PSA Level [facility] Start: 1971 Screening for malign ant neoplasm of colon [facility] Start: 1971 Tetanus vaccination [facility] End: 01-26-2023 Complete blood count with white cell differential, manual CBC and Differential Lab Routine Type 1 diabetes mellitus with diabetic autonomic neuropathy (HCC) 1 Occurrences starting 01/26/2022 until 01/26/2023 [facility] Comment on above: 1 Occurrences starti ng 01/26/2022 until 01/26/2023 End: 02-13-2023 Complete blood count with white cell differential, manual CBC and Differential Lab Routine Type 1 diabetes mellitus with diabetic autonomic neuropathy (HCC) 1 Occurrences starting 02/13/2022 until 02/13/2023 [facility] Comment on above: 1 Occurrences starti ng 02/13/2022 until 02/13/2023 End: 03-28-2024 Complete blood count with white cell differential, manual CBC and Differential Lab Routine Type 1 diabetes mellitus with diabetic autonomic neuropathy (HCC) 1 Occurrences starting 03/28/2023 until 03/28/2024 [facility] Comment on above: 1 Occurrences starti ng 03/28/2023 until 03/28/2024 End: 05-27-2025 Complete blood count with white cell differential, manual CBC and Differential Lab Routine Type 1 diabetes mellitus with diabetic autonomic neuropathy (HCC) 1 Occurrences starting 05/26/2024 until 05/27/2025 [facility] Comment on above: 1 Occurrences starti ng 05/26/2024 until 05/27/2025 End: 04-25-2020 Comprehensive metabolic 2000 panel Comprehensive Metabolic Panel Lab Routine Type 1 diabetes mellitus with diabetic autonomic neuropathy (HCC) 1 Occurrences starting 04/25/2019 until 04/25/2020 [facility] Comment on above: 1 Occurrences starti ng 04/25/2019 until 04/25/2020 End: 01-06-2023 Comprehensive metabolic 2000 panel - Serum or Plasma Comprehensive metabolic panel Lab Routine Type 1 diabetes mellitus with diabetic autonomic neuropathy (HCC) 1 Occurrences starting 01/06/2022 until 01/06/2023 [facility] Comment on above: 1 Occurrences starti ng 01/06/2022 until 01/06/2023 End: 01-26-2023 Comprehensive metabolic 2000 panel - Serum or Plasma Comprehensive Metabolic Panel Lab Routine Type 1 diabetes mellitus with diabetic autonomic neuropathy (HCC) 1 Occurrences starting 01/26/2022 until 01/26/2023 [facility] Comment on above: 1 Occurrences starti ng 01/26/2022 until 01/26/2023 End: 02-13-2023 Comprehensive metabolic 2000 panel - Serum or Plasma Comprehensive Metabolic Panel Lab Routine Type 1 diabetes mellitus with diabetic autonomic neuropathy (HCC) 1 Occurrences starting 02/13/2022 until 02/13/2023 [facility] Comment on above: 1 Occurrences starti ng 02/13/2022 until 02/13/2023 End: 03-28-2024 Comprehensive metabolic 2000 panel - Serum or Plasma Comprehensive Metabolic Panel Lab Routine Type 1 diabetes mellitus with diabetic autonomic neuropathy (HCC) 1 Occurrences starting 03/28/2023 until 03/28/2024 [facility] Comment on above: 1 Occurrences starti ng 03/28/2023 until 03/28/2024 End: 11-26-2024 Comprehensive metabolic 2000 panel - Serum or Plasma Comprehensive Metabolic Panel Lab Routine Type 1 diabetes mellitus with diabetic autonomic neuropathy (HCC) 1 Occurrences starting 11/26/2023 until 11/26/2024 [facility] Work Phone: Comment on above: 1 Occurrences starti ng 11/26/2023 until 11/26/2024 End: 05-27-2025 Comprehensive metabolic 2000 panel - Serum or Plasma Comprehensive Metabolic Panel Lab Routine Type 1 diabetes mellitus with diabetic autonomic neuropathy (HCC) 1 Occurrences starting 05/26/2024 until 05/27/2025 [facility] Comment on above: 1 Occurrences starti ng 05/26/2024 until 05/27/2025 End: 12-02-2025 Comprehensive metabolic 2000 panel - Serum or Plasma Comprehensive Metabolic Panel Lab Routine Type 1 diabetes mellitus with diabetic autonomic neuropathy (HCC) 1 Occurrences starting 12/01/2024 until 12/02/2025 [facility] Work Phone: Comment on above: 1 Occurrences starti ng 12/01/2024 until 12/02/2025 End: 02-13-2023 External Lab Microalbumin/Creatinine External Lab Microalbumin/Creatinin e Lab Routine Type 1 diabetes mellitus with diabetic autonomic neuropathy (HCC) 1 Occurrences starting 02/13/2022 until 02/13/2023 [facility] Comment on above: 1 Occurrences starti ng 02/13/2022 until 02/13/2023 End: 03-28-2024 External Lab Microalbumin/Creatinine External Lab Microalbumin/Creatinin e Lab Routine Type 1 diabetes mellitus with diabetic autonomic neuropathy (HCC) 1 Occurrences starting 03/28/2023 until 03/28/2024 [facility] Comment on above: 1 Occurrences starti ng 03/28/2023 until 03/28/2024 End: 09-02-2020 HbA1c (Bld) [Mass fraction] Hemoglobin A1c Lab Routine Type 1 diabetes mellitus with diabetic autonomic neuropathy (HCC) 1 Occurrences starting 09/02/2019 until 09/02/2020 [facility] Comment on above: 1 Occurrences starti ng 09/02/2019 until 09/02/2020 End: 01-06-2023 Hemoglobin A1c/Hemoglobin.total in Blood Hemoglobin A1c Lab Routine Type 1 diabetes mellitus with diabetic autonomic neuropathy (HCC) 1 Occurrences starting 01/06/2022 until 01/06/2023 [facility] Work Phone: Comment on above: 1 Occurrences starti ng 01/06/2022 until 01/06/2023 End: 01-26-2023 Hemoglobin A1c/Hemoglobin.total in Blood Hemoglobin A1c Lab Routine Type 1 diabetes mellitus with diabetic autonomic neuropathy (HCC) 1 Occurrences starting 01/26/2022 until 01/26/2023 [facility] Comment on above: 1 Occurrences starti ng 01/26/2022 until 01/26/2023 End: 02-13-2023 Hemoglobin A1c/Hemoglobin.total in Blood Hemoglobin A1c Lab Routine Type 1 diabetes mellitus with diabetic autonomic neuropathy (HCC) 1 Occurrences starting 02/13/2022 until 02/13/2023 [facility] Comment on above: 1 Occurrences starti ng 02/13/2022 until 02/13/2023 End: 03-28-2024 Hemoglobin A1c/Hemoglobin.total in Blood Hemoglobin A1c Lab Routine Type 1 diabetes mellitus with diabetic autonomic neuropathy (HCC) 1 Occurrences starting 03/28/2023 until 03/28/2024 [facility] Work Phone: Comment on above: 1 Occurrences starti ng 03/28/2023 until 03/28/2024 End: 11-26-2024 Hemoglobin A1c/Hemoglobin.total in Blood Hemoglobin A1c Lab Routine Type 1 diabetes mellitus with diabetic autonomic neuropathy (HCC) 1 Occurrences starting 11/26/2023 until 11/26/2024 [facility] Comment on above: 1 Occurrences starti ng 11/26/2023 until 11/26/2024 End: 05-27-2025 Hemoglobin A1c/Hemoglobin.total in Blood Hemoglobin A1c Lab Routine Type 1 diabetes mellitus with diabetic autonomic neuropathy (HCC) 1 Occurrences starting 05/26/2024 until 05/27/2025 [facility] Work Phone: Comment on above: 1 Occurrences starti ng 05/26/2024 until 05/27/2025 End: 12-02-2025 Hemoglobin A1c/Hemoglobin.total in Blood Hemoglobin A1c Lab Routine Type 1 diabetes mellitus with diabetic autonomic neuropathy (HCC) 1 Occurrences starting 12/01/2024 until 12/02/2025 [facility] Comment on above: 1 Occurrences starti ng 12/01/2024 until 12/02/2025 End: 04-25-2020 Hemoglobin A1c/Hemoglobin.total mass fraction (Bld) Hemoglobin A1c Lab Routine Type 1 diabetes mellitus with diabetic autonomic neuropathy (HCC) 1 Occurrences starting 04/25/2019 until 04/25/2020 [facility] Comment on above: 1 Occurrences starti ng 04/25/2019 until 04/25/2020 End: 04-25-2020 Lipid 1996 panel Lipid Panel Lab Routine Type 1 diabetes mellitus with diabetic autonomic neuropathy (HCC) 1 Occurrences starting 04/25/2019 until 04/25/2020 [facility] Comment on above: 1 Occurrences starti ng 04/25/2019 until 04/25/2020 End: 01-26-2023 Lipid 1996 panel - Serum or Plasma Lipid Panel Lab Routine Type 1 diabetes mellitus with diabetic autonomic neuropathy (HCC) 1 Occurrences starting 01/26/2022 until 01/26/2023 [facility] Comment on above: 1 Occurrences starti ng 01/26/2022 until 01/26/2023 End: 02-13-2023 Lipid 1996 panel - Serum or Plasma Lipid Panel Lab Routine Type 1 diabetes mellitus with diabetic autonomic neuropathy (HCC) 1 Occurrences starting 02/13/2022 until 02/13/2023 [facility] Comment on above: 1 Occurrences starti ng 02/13/2022 until 02/13/2023 End: 03-28-2024 Lipid 1996 panel - Serum or Plasma Lipid Panel Lab Routine Type 1 diabetes mellitus with diabetic autonomic neuropathy (HCC) 1 Occurrences starting 03/28/2023 until 03/28/2024 [facility] Comment on above: 1 Occurrences starti ng 03/28/2023 until 03/28/2024 End: 05-27-2025 Lipid 1996 panel - Serum or Plasma Lipid Panel Lab Routine Type 1 diabetes mellitus with diabetic autonomic neuropathy (HCC) 1 Occurrences starting 05/26/2024 until 05/27/2025 [facility] Comment on above: 1 Occurrences starti ng 05/26/2024 until 05/27/2025 End: 01-26-2023 Microalbumin measurement, urine, quantitative Microalbumin/Creatinin e Ratio, UR Random Lab Routine Type 1 diabetes mellitus with diabetic autonomic neuropathy (HCC) 1 Occurrences starting 01/26/2022 until 01/26/2023 [facility] Comment on above: 1 Occurrences starti ng 01/26/2022 until 01/26/2023 Microalbumin measurement, urine, quantitative Microalbumin/Creatinin e Ratio, UR Random Lab Routine Type 1 diabetes mellitus with diabetic autonomic neuropathy (HCC) Ordered: 05/26/2024 [facility] Comment on above: Ordered: 05/26/2024 Patient Education Hypoglycemia ( Low Blood Sugar) ED Gastroenteritis, Viral (Adult) [facility] Work Phone: Patient referral [facility] Work Phone: End: 01-26-2023 Thyrotropin [Units/volume] in Serum or Plasma TSH Lab Routine Type 1 diabetes mellitus with diabetic autonomic neuropathy (HCC) 1 Occurrences starting 01/26/2022 until 01/26/2023 [facility] Work Phone: Comment on above: 1 Occurrences starti ng 01/26/2022 until 01/26/2023 End: 02-13-2023 Thyrotropin [Units/volume] in Serum or Plasma TSH Lab Routine Type 1 diabetes mellitus with diabetic autonomic neuropathy (HCC) 1 Occurrences starting 02/13/2022 until 02/13/2023 [facility] Work Phone: Comment on above: 1 Occurrences starti ng 02/13/2022 until 02/13/2023 End: 03-28-2024 Thyrotropin [Units/volume] in Serum or Plasma TSH Lab Routine Type 1 diabetes mellitus with diabetic autonomic neuropathy (HCC) 1 Occurrences starting 03/28/2023 until 03/28/2024 [facility] Comment on above: 1 Occurrences starti ng 03/28/2023 until 03/28/2024 End: 11-26-2024 Thyrotropin [Units/volume] in Serum or Plasma TSH Lab Routine Type 1 diabetes mellitus with diabetic autonomic neuropathy (HCC) 1 Occurrences starting 11/26/2023 until 11/26/2024 [facility] Comment on above: 1 Occurrences starti ng 11/26/2023 until 11/26/2024 End: 05-27-2025 Thyrotropin [Units/volume] in Serum or Plasma TSH Lab Routine Type 1 diabetes mellitus with diabetic autonomic neuropathy (HCC) 1 Occurrences starting 05/26/2024 until 05/27/2025 [facility] Comment on above: 1 Occurrences starti ng 05/26/2024 until 05/27/2025 End: 12-02-2025 Thyrotropin [Units/volume] in Serum or Plasma TSH Lab Routine Type 1 diabetes mellitus with diabetic autonomic neuropathy (HCC) 1 Occurrences starting 12/01/2024 until 12/02/2025 [facility] Comment on above: 1 Occurrences starti ng 12/01/2024 until 12/02/2025 End: 01-26-2023 Thyroxine (T4) free [Mass/volume] in Serum or Plasma T4, Free Lab Routine Type 1 diabetes mellitus with diabetic autonomic neuropathy (HCC) 1 Occurrences starting 01/26/2022 until 01/26/2023 [facility] Comment on above: 1 Occurrences starti ng 01/26/2022 until 01/26/2023 End: 02-13-2023 Thyroxine (T4) free [Mass/volume] in Serum or Plasma T4, Free Lab Routine Type 1 diabetes mellitus with diabetic autonomic neuropathy (HCC) 1 Occurrences starting 02/13/2022 until 02/13/2023 [facility] Comment on above: 1 Occurrences starti ng 02/13/2022 until 02/13/2023 End: 03-28-2024 Thyroxine (T4) free [Mass/volume] in Serum or Plasma T4, Free Lab Routine Type 1 diabetes mellitus with diabetic autonomic neuropathy (HCC) 1 Occurrences starting 03/28/2023 until 03/28/2024 [facility] Comment on above: 1 Occurrences starti ng 03/28/2023 until 03/28/2024 End: 11-26-2024 Thyroxine (T4) free [Mass/volume] in Serum or Plasma T4, Free Lab Routine Type 1 diabetes mellitus with diabetic autonomic neuropathy (HCC) 1 Occurrences starting 11/26/2023 until 11/26/2024 [facility] Comment on above: 1 Occurrences starti ng 11/26/2023 until 11/26/2024 End: 05-27-2025 Thyroxine (T4) free [Mass/volume] in Serum or Plasma T4, Free Lab Routine Type 1 diabetes mellitus with diabetic autonomic neuropathy (HCC) 1 Occurrences starting 05/26/2024 until 05/27/2025 [facility] Comment on above: 1 Occurrences starti ng 05/26/2024 until 05/27/2025 End: 12-02-2025 Thyroxine (T4) free [Mass/volume] in Serum or Plasma T4, Free Lab Routine Type 1 diabetes mellitus with diabetic autonomic neuropathy (HCC) 1 Occurrences starting 12/01/2024 until 12/02/2025 [facility] Comment on above: 1 Occurrences starti ng 12/01/2024 until 12/02/2025 Immunizations Immunization Date Immunization Notes Care Provider Juan Ramon gay 10-03-2022 influenza virus vacc ine, unspecified formulation Nelida Blanco CNP Work Phone: [facility] 08-05-2021 influenza, injectabl e, quadrivalent, contains preservative Krislyn Aberegg PA Work Phone: [facility] 07-29-2019 influenza, injectabl e, quadrivalent, preservative free Krislyn Aberegg PA Work Phone: [facility] 09-09-2015 influenza, injectabl e, quadrivalent, contains preservative Krislyn Aberegg PA Work Phone: [facility] 09-03-2010 influenza virus vacc ine, unspecified formulation Krislyn Aberegg PA Work Phone: [facility] 09-09-2009 influenza virus vacc ine, unspecified formulation Krislyn Aberegg PA Work Phone: [facility] 09-13-2006 influenza virus vacc ine, unspecified formulation Krislyn Aberegg PA Work Phone: [facility] Payers Date Payer Category Payer Self-pay [id number] 2015 Managed Care PPO (unspecified) [employer] PPO [id number] 2015 Private Health Insurance [employer] PPO [id number] 2015 Unknown MMO [employer] S UPERMED PPO xxxxxxxxxxxx 2015-Present xxxxxxxxxxxx [id number] 2015 Unknown [id number] 2015 Unknown [employer] PPO [id number] 2015-Present [phone] [address] [place] [address] [id number] 2012 Unknown [id number] 1970 Unknown [id number] 1971 Unknown [id number] 1971 Unknown [id number] 1971 Unknown [id number] 1971 Unknown [id number] Unknown [id number] Unknown [id number] Unknown [id number] Unknown [id number] Social History Date Type Detail Facility Start: 04-27-2019 End: 08-07-2022 Tobacco smoking status NHIS Never smoker [facility] Start: 04-25-2019 Alcohol Comment rare [facility] Start: 1970 Sex Assigned At Not on file [facility] Start: 09-02-2019 End: 07-12-2025 Alcohol intake Current drinker of alcohol (finding) [facility] Start: 11-04-2020 End: 09-11-2022 Tobacco use and exposure Never used [facility] Start: 02-03-2022 End: 03-28-2023 Exposure to SARS-CoV-2 (event) Not sure [facility] Start: 04-29-2020 End: 08-07-2022 Tobacco smoking status NHIS Unknown if ever smoked [facility] Start: 04-29-2020 None [facility] Start: 04-29-2020 Spouse/ Significant Other [facility] Start: 04-29-2020 Non-smoker [facility] Start: 1970 Sex Assigned At Male [facility] Start: 08-05-2021 End: 09-11-2022 History of Social function [facility] Start: 08-05-2021 End: 09-11-2022 Tobacco use panel [facility] Start: 02-13-2022 Gender identity Identifies as male gender (finding) [facility] Start: 02-13-2022 Sexual orientation Heterosexual (finding) [facility] Start: 10-20-2012 National Score (1-100), lower number is lower risk Not on file [facility] Medical Equipment Procedure Code Equipment Code Equipment Origin al Text Equipment Identifier Dates use as directed x / [id number] Start: 02-02-2006 Functional Status Date Assessment Result Facility 07-30-2014 Are you deaf, or do you have serious difficulty hearing No 07/30/2014 9:06 AM Jannet Sung LPN No [facility] 07-30-2014 Are you blind, or do you have serious difficulty seeing, even when wearing glasses No 07/30/2014 9:06 AM Jannet Sung LPN No [facility] 07-30-2014 Do you have serious difficulty walking or climbing stairs No 07/30/2014 9:06 AM Jannet Sung LPN No [facility] 07-30-2014 Do you have difficul ty dressing or bathing No 07/30/2014 9:06 AM Jannet Sung LPN No [facility] 07-30-2014 Because of a physica l, mental, or emotional condition, do you have difficulty doing errands alone such as visiting a physician's office or shopping No 07/30/2014 9:06 AM Jannet Sung LPN No [facility] Mental Status Date Assessment Result Facility 07-30-2014 Because of a physica l, mental, or emotional condition, do you have serious difficulty concentrating, remembering, or making decisions No 07/30/2014 9:06 AM Jannet Sung LPN No [facility] Clinical Notes 04-23-2017 to 07-12-2025 Thelma Aaron PA - 07/12/2025 11:42 AM Nelida Ann, WILLIAM - 06/01/2025 9:09 AM Nelida Ann CNP - 12/01/2024 8:39 AM EST Note Date & Type Note Facility 07-12-2025 History of Present illness Narrative [facility] Subjective Shane Zuñiga is a 55 year old male. Patient presents with: Pain, Sinus: Sinus pain and pressure, congestion, drainage, fatigue and ST x 3 days HPI Sinus Infection: - Onset of symptoms began on - Initially thought symptoms were due to allergies, but progressed to suspecting a sinus infection. - Reports thick, yellow nasal discharge, different from usual clear allergy-related rhinorrhea. - Describes discomfort and pain localized to the forehead and over the eyebrows. - Denies fever; taking anti-inflammatory medication for a hip issue, which may be suppressing fever. - Experiences a mild, non-productive cough, described as a baby cough. - Denies chest congestion; nasal congestion is chronic due to allergies. - Has not taken any new medications in the past few days. PAST SURGICAL HISTORY Procedure Laterality Date PAST SURGICAL HISTORY OF wisdom teeth Review of Systems Constitutional: (-) fever Head: (+) frontal facial pain/pressure Ears/Nose/Mouth/Throat: (+) nasal congestion, (+) yellow nasal discharge Respiratory: (+) nonproductive cough, (-) sputum production, (-) chest congestion Objective BP 122/72 Pulse 73 Temp 36.6 C (97.9 F) (Tympanic) Resp 16 Wt 98.1 kg (216 lb 4.3 oz) SpO2 98% Physical Exam General: No acute distress. HEENT: Nasal mucosa inflamed, tenderness over frontal sinuses, oropharynx without erythema or exudate, tympanic membranes clear. Resp: Lungs clear to auscultation bilaterally. { 1. Bacterial sinusitis (J32.9) - Acute onset of thick, yellow nasal discharge, facial pain and pressure, and nasal inflammation on exam consistent with bacterial sinusitis. - Start Augmentin BID for 7 days. - Continue current allergy medications and Flonase nasal spray. - Advised to follow up if symptoms do not improve. and Recording using Shoulder Options software for draft documentation of the visit was discussed with the patient/authorized physician relations representative; all questions welcomed and answered. Patient/authorized physician relations representative agreed to proceed History and Record Review External record(s) reviewed: prior outpatient record. Differential Diagnoses - Sinusitis is more likely for the following reason(s): suggested by H&P Disposition The patient was discharged. OTC Medications were advised: Flonase Procedures documented in this encounter [facility] 06-24-2025 Radiology Diagnostic study note [facility] [address] [place], [place] [address] HIP, UNI W/ Pelvis 2-3 Views MR#: [id number] Acct: [id number] Name: SHANE ZUÑIGA Rep #: [id number] : 1970 M 55 From: Gilberto Avila MD PCP: Dr. Bradford Finn MD Status: REG C KYE Study:HIP, UNI W/ Pelvis 2-3 Views Date of Ex am: 06/24/25 Exam# [id number] Ordering Dr: Bradford Finn MD PROCEDURE: HIP, UNI W/ PELVIS 2-3 VIEWS 06/24/2025 REASON FOR EXAM: PAIN TECHNIQUE: HIP, UNI W/ PELVIS 2-3 VIEWS COMPARISON: None. RAD/HIP, UNI W/ Pelvis 2-3 Views IMPRESSION: At least mild Degenerative Changes Are Seen Of The Visualized Lower Lumbar Spine. Minimal Sacroiliac Joint Degenerative Changes Are Noted. Hip Joints Appear Symmetric And Within Normal Range. No Evidence Of Femoral Head Osteonecrosis. No Fracture Or Dislocation Is Evident. If clinical concern persists, short-term follow-up imaging may be obtained to rule out a currently occult fracture. Reading Location: [place] [address] CC: Dr. Bradford Finn MD ~ Electromyographic Technician: Signed [facility] 06-01-2025 Note Patient ID: Shane Zuñiga is a 55 y.o. male 1970 Subjective: Shane Zuñiga presents for follow up of Type 1 diabetes Diagnosed with DM Oct 08, 1978 He continues on a T slim insulin pump with a Dexcom CGM. This was downloaded and reviewed today. He does not utilize Control IQ, but does have basal IQ activated. He does not enter carb amounts, but consistently uses 1:15 ratio to calculate his own boluses. Hgb A1c: 6.0%. CGM, pump downloaded and reviewed. He was also started on levothyroxine 50mcg daily in the past for mild hypothyroidism. Diagnosed with sleep apnea, started on CPAP, which has helped. : Reports no major issues as of late, started a new job early October 2024, with increased physical exertion. Has been leading to some low blood sugars at work. Diagnostic CGM interpretation: Dexcom downloaded as below, pump reviewed manually. TDI: 51.71 Basal: 8.57 (16.5%) Food bolus: 38.67 (74.7%) Correction: 4.47 (8.6%) Allergies Allergen Reactions Animal Dander Hives and Shortness Of Breath Cashew Nut Anaphylaxis and Hives Throat closes Tyner Shortness Of Breath and Itching Phenergan [Promethazine] GI Intolerance Rice Shortness Of Breath All grains Outpatient Medications Marked as Taking for the 06/01/25 encounter (Office Visit) with Nelida Blanco, WILLIAM: aspirin 81 MG EC tablet, Take 1 (one) tablet (81 mg total) by mouth daily . atorvastatin (LIPITOR) 20 MG tablet, TAKE 1 TABLET DAILY DULoxetine (CYMBALTA) 60 MG capsule, Take 1 (one) capsule (60 mg total) by mouth daily . insulin aspart U-100 (NovoLOG) 100 unit/mL injection, Use as directed with insulin pump, approx 60 units daily . multivit-minerals/FA/lycopene (ONE-A-DAY MEN'S ORAL), Take 1 tablet by mouth daily . subcutaneous insulin pump (t:slim X2 Insulin Pump) Misc, by Miscellaneous route continuous . triamcinolone (NASACORT) 55 mcg nasal inhaler, [...] Genitourinary: Negative for dysuria and frequency. Musculoskeletal: Positive for arthralgias (left shoulder and elbow. History of frozen shoulder.). Negative for gait problem and myalgias. Skin: Negative for rash and wound. Neurological: Negative for weakness, numbness and headaches. Psychiatric/Behavioral: Negative for sleep disturbance. The following portions of the patient's history were reviewed and updated as appropriate: allergies, current medications, past family history, past medical history, past social history, past surgical history and problem list. Objective: BP 136/80 Pulse 65 Wt 95.6 kg (210 lb 11.2 oz) BMI 29.39 kg/m Wt Readings from Last 3 Encounters: 06/01/25 95.6 kg (210 lb 11.2 oz) 12/01/24 96.8 kg (213 lb 8 oz) 05/26/24 96.1 kg (211 lb 12.8 oz) Physical Exam: General: alert, appears stated [...] and oriented x3 and RAUL Lab Review 05/28/25: *labs reviewed 06/01/25 Hgb A1c: 6.0% Creat: 1.34; eGFR: 63 AST: 31; ALT: 21 K: 4.2 TSH: 4.340 ; FreeT4: 0.8 11/28/24 Hgb A1c: 6.4% Creat: 1.08; eGFR: 76 AST: 43; ALT: 49 K: 4.0 CBC: WBC:7.40; Hgb: 14.4; Hct: 43.0; Plt: 268 Tchol: 182; Tri ; HDL: 51 ; LDL: 107 TSH: 4.160 ; FreeT4: 0.85 05/23/24 Hgb A1c: 6.1% Creat: 1.01; eGFR: 82 AST: 36; ALT: 36 K: 3.8 TSH: 3.86 ; FreeT4: 0.97 11/26/23 Hgb A1c: 6.4% Creat: 0.92; eGFR: 91 AST: 28; ALT: 32 K: 3.7 CBC: WBC:7.60; Hgb: 15.0; Hct: 46.1; Plt: 299 Tchol: 183; Tri ; HDL: 53 ; LDL: 121 TSH: 2.89 ; FreeT4: 1.06 Microalbumin/creatinine Ratio: 5.2 03/28/2023 Hemoglobin A1c 6.4% 09/07/22 Hgb A1c: 6.4% Creat: 1.0; eGFR: 84 AST: 37; ALT: 46 K: 4.3 CBC: WBC:6.40; Hgb: 15.8; Hct: 45.3; Plt: 244 Tchol: 141; Tri ; HDL: 73 ; LDL: 60 TSH: 3.86 ; FreeT4: 1.08 Microalbumin/creatinine Ratio: 9.6 03/01/22 TSH: 2.58; FreeT4: 1.04 02/07/2022 (more content not included)... [facility] 06-01-2025 History of Present illness Narrative Images from the original note were not included. Patient ID: Shane Zuñiga is a 55 y.o. male 1970 Subjective: Shane Zuñiga presents for follow up of Type 1 diabetes Diagnosed with DM Oct 08, 1978 He continues on a T slim insulin pump with a Dexcom CGM. This was downloaded and reviewed today. He does not utilize Control IQ, but does have basal IQ activated. He does not enter carb amounts, but consistently uses 1:15 ratio to calculate his own boluses. Hgb A1c: 6.0%. CGM, pump downloaded and reviewed. He was also started on levothyroxine 50mcg daily in the past for mild hypothyroidism. Diagnosed with sleep apnea, started on CPAP, which has helped. : Reports no major issues as of late, started a new job early October 2024, with increased physical exertion. Has been leading to some low blood sugars at work. Diagnostic CGM interpretation: Dexcom downloaded as below, pump reviewed manually. TDI: 51.71 Basal: 8.57 (16.5%) Food bolus: 38.67 (74.7%) Correction: 4.47 (8.6%) Allergies Allergen Reactions Animal Dander Hives and Shortness Of Breath Cashew Nut Anaphylaxis and Hives Throat closes Tyner Shortness Of Breath and Itching Phenergan [Promethazine] GI Intolerance Rice Shortness Of Breath All grains Outpatient Medications Marked as Taking for the 06/01/25 encounter (Office Visit) with Nelida Blanco CNP: aspirin 81 MG EC tablet, Take 1 (one) tablet (81 mg total) by mouth daily . atorvastatin (LIPITOR) 20 MG tablet, TAKE 1 TABLET DAILY DULoxetine (CYMBALTA) 60 MG capsule, Take 1 (one) capsule (60 mg total) by mouth daily . insulin aspart U-100 (NovoLOG) 100 unit/mL injection, Use as directed with insulin pump, approx 60 units daily . multivit-minerals/FA/lycopene (ONE-A-DAY MEN'S ORAL), Take 1 tablet by mouth daily . subcutaneous insulin pump (t:slim X2 Insulin Pump) Misc, by Miscellaneous route continuous . triamcinolone (NASACORT) 55 mcg nasal inhaler, [...] Genitourinary: Negative for dysuria and frequency. Musculoskeletal: Positive for arthralgias (left shoulder and elbow. History of frozen shoulder.). Negative for gait problem and myalgias. Skin: Negative for rash and wound. Neurological: Negative for weakness, numbness and headaches. Psychiatric/Behavioral: Negative for sleep disturbance. The following portions of the patient's history were reviewed and updated as appropriate: allergies, current medications, past family history, past medical history, past social history, past surgical history and problem list. Objective: BP 136/80 Pulse 65 Wt 95.6 kg (210 lb 11.2 oz) BMI 29.39 kg/m Wt Readings from Last 3 Encounters: 06/01/25 95.6 kg (210 lb 11.2 oz) 12/01/24 96.8 kg (213 lb 8 oz) 05/26/24 96.1 kg (211 lb 12.8 oz) Physical Exam: General: alert, appears stated [...] and oriented x3 and RAUL Lab Review 05/28/25: *labs reviewed 06/01/25 Hgb A1c: 6.0% Creat: 1.34; eGFR: 63 AST: 31; ALT: 21 K: 4.2 TSH: 4.340 ; FreeT4: 0.8 11/28/24 Hgb A1c: 6.4% Creat: 1.08; eGFR: 76 AST: 43; ALT: 49 K: 4.0 CBC: WBC:7.40; Hgb: 14.4; Hct: 43.0; Plt: 268 Tchol: 182; Tri ; HDL: 51 ; LDL: 107 TSH: 4.160 ; FreeT4: 0.85 05/23/24 Hgb A1c: 6.1% Creat: 1.01; eGFR: 82 AST: 36; ALT: 36 K: 3.8 TSH: 3.86 ; FreeT4: 0.97 11/26/23 Hgb A1c: 6.4% Creat: 0.92; eGFR: 91 AST: 28; ALT: 32 K: 3.7 CBC: WBC:7.60; Hgb: 15.0; Hct: 46.1; Plt: 299 Tchol: 183; Tri ; HDL: 53 ; LDL: 121 TSH: 2.89 ; FreeT4: 1.06 Microalbumin/creatinine Ratio: 5.2 03/28/2023 Hemoglobin A1c 6.4% 09/07/22 Hgb A1c: [...] 121; Tri ; HDL: 52 ; LDL: 5 TSH: 4.11 ; FreeT4: 1.38 07/05/2020 Hemoglobin [...] diabetes mellitus with diabetic autonomic neuropathy (HCC) 2. Hypothyroidism, unspecified type levothyroxine (SYNTHROID, LEVOTHROID) 50 MCG tablet CBC and Differential Microalbumin/Creatinine Ratio, UR Random Lipid Panel T4, Free TSH Hemoglobin A1c Comprehensive Metabolic Panel Type 1 diabetes, under good control Patient is currently managed with: Currently taking: Insulin Pump using Novolog insulin Current Hemoglobin A1C= Lab Results Component Value Date HGBA1C 6.0 05/28/2025 HGBA1C 6.4 (A) 11/28/2024 HGBA1C 6.1 05/23/2024 Weight trend: is stable Current diet: carbohydrate counting Current exercise: walking and active at work Current monitoring regimen: home blood tests - 8-10 times daily with Dexcom sensor times daily Home blood sugar records: CGM download NOTES: Retinopathy: Positive: Background diabetic retinopathy Exam within last 12 months: No, encouraged to follow up. 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 Priscilla Oh. Other Ophthalmologic Conditions: wears contact lenses and reading glasses Advised updated DM eye exam Nephropathy: Negative Lab Results Component Value Date CREATININE 1.34 (H) 05/28/2025 EXTEGFR 63 05/28/2025 EXTEGFRAFAME 99 05/23/2024 Microlbumin/creat ratio: 5.2 in 11/26/23 Is patient on LEONIDAS inhibitor or angiotensin II receptor tyshawn? yes Enalapril Need to recheck kidney function Peripheral Neuropathy: Negative Denies symptoms associated with neuropathy (numbness and/or tingling) Autonomic Neuropathy: Positive Hypoglycemia unawareness. Does not sense low BG unless <50 mg/dl. Able to sense high BG. Intranasal glucagon sent today. Other: Hyperlipidemia: Negative Currently taking: on atorvastatin. LFT's WNL. 12/12: Tchol: 183; Tri; HDL: 53 ; LDL: 121 PLAN: CPM. Recheck lipids. Hypertension: Negative . Currently taking: enalapril (Vasotec) BP: 136/80 Cardiac: Negative Experiencing chest pain No . Experiencing shortness of breath No History of No history of CAD Follows routinely with: Vascular: Negative History of None Feet: Follows with Podiatry: No Certified Meeting Professional: History of foot ulceration: No History of amputation: No Thyroid: Pt started on levothyroxine 50mcg daily TFT's WNL 06/12 Lab Results Component Value Date TSH 4.340 (H) 05/28/2025 Positive Hypothyroidism on levothyroxine 50 mcg/day. PLAN: Recheck TFTs regularly. Other: Current pump settings: Basal rate: Standard 0000--0.600 units/h 0300--0.650 0600--0.650 1200--0.600 1400--0.450 2200--0.575 13.6 Insulin: Carbohydrate ratio: 15 Insulin sensitivity: 20 Plan: 1. Rx changes: none Continue auto basal function of new T-Slim pump with Dexcom sensor Patient warned regarding the risks associated with frequent hypoglycemia. Continue Control IQ Discussed using Activity mode with increased activity at work. Basal rate: Standard 0000--0.600 units/h 0300--0.650 0600--0.650 1200--0.600 1400--0.450 2330--0.575 13.60 Insulin: Carbohydrate ratio: 0000--15 Insulin sensitivity: 0000--20 2. Education: Reviewed ABCs of diabetes management (respective goals in parentheses): A1C (7.0-8.0), blood pressure (<130/80), and cholesterol (LDL <100). 3. Compliance at present is estimated to be good. Efforts to improve compliance (if necessary) will be directed at dietary modifications: accurate carb counting and regular blood sugar monitorin-6 times daily. 4. Follow up: 6 months 5. Record blood sugar readings as instructed. Call if BG consistently <70 or >250. [phone] Patient has been checking blood glucoses 4 [...] up appointment. 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 male 1970 Subjective: Shane Zuñiga presents for follow up of Type 1 diabetes Diagnosed with DM Oct 08, 1978 He continues on a T slim insulin pump with a Dexcom CGM. This was downloaded and reviewed today. He does not utilize Control IQ, but does have basal IQ activated. He does not enter carb amounts, but consistently uses 1:15 ratio to calculate his own boluses. Hgb A1c: 6.4%. CGM, pump downloaded and reviewed. He was also started on levothyroxine 50mcg daily in the past for mild hypothyroidism. Diagnosed with sleep apnea, started on CPAP, which has helped. 12/13: Reports no major issues as of late, started a new job early October 2024, with increased physical exertion. Has been leading to some low blood sugars at work. Diagnostic CGM interpretation: CGM report unable to be reviewed due to connection issues. Allergies Allergen Reactions Animal Dander Hives and Shortness Of Breath Cashew Nut Anaphylaxis and Hives Throat closes Tyner Shortness Of Breath and Itching Phenergan [Promethazine] GI Intolerance Rice Shortness Of Breath All grains Outpatient Medications Marked as Taking for the 12/01/24 encounter (Office Visit) with Nelida Blanco CNP: aspirin 81 MG EC tablet, Take 1 (one) tablet (81 mg total) by mouth daily . enalapril (VASOTEC) 20 MG tablet, Take 1 (one) tablet (20 mg total) by mouth daily . glucagon (Baqsimi) 3 mg/actuation [place], Administer 1 (one) spray into one nostril as needed (hypoglycemia) . insulin aspart U-100 (NovoLOG) 100 unit/mL injection, Use as directed with insulin pump, approx 60 units daily . magnesium 250 mg Tab, Take 1 (one) tablet (250 mg total) by mouth daily . multivit-minerals/FA/lycopene (ONE-A-DAY MEN'S ORAL), Take 1 tablet by mouth daily . omeprazole (PRILOSEC) 40 MG capsule, Take 1 (one) capsule (40 mg total) by mouth daily . subcutaneous insulin pump (t:slim X2 Insulin Pump) Misc, by Miscellaneous route continuous . Review of Systems: Review of Systems [...] Genitourinary: Negative for dysuria and frequency. Musculoskeletal: Positive for arthralgias (left shoulder and elbow. History of frozen shoulder.). Negative for gait problem and myalgias. Skin: Negative for rash and wound. Neurological: Negative for weakness, numbness and headaches. Psychiatric/Behavioral: Negative for sleep disturbance. The following portions of the patient's history were reviewed and updated as appropriate: allergies, current medications, past family history, past medical history, past social history, past surgical history and problem list. Objective: BP 126/74 Pulse 69 Wt 96.8 kg (213 lb 8 oz) BMI 29.78 kg/m Wt Readings from Last 3 Encounters: 12/01/24 96.8 kg (213 lb 8 oz) 05/26/24 96.1 kg (211 lb 12.8 oz) 11/26/23 95.5 kg (210 lb 8 oz) Physical Exam: General: alert, appears stated [...] and oriented x3 and RAUL Lab Review 11/28/24 *labs reviewed 12/01/24 Hgb A1c: 6.4% Creat: 1.08; eGFR: 76 AST: 43; ALT: 49 K: 4.0 CBC: WBC:7.40; Hgb: 14.4; Hct: 43.0; Plt: 268 Tchol: 182; Tri ; HDL: 51 ; LDL: 107 TSH: 4.160 ; FreeT4: 0.85 05/23/24 Hgb A1c: 6.1% Creat: 1.01; eGFR: 82 AST: 36; ALT: 36 K: 3.8 TSH: 3.86 ; FreeT4: 0.97 11/26/23 Hgb A1c: 6.4% Creat: 0.92; eGFR: 91 AST: 28; ALT: 32 K: 3.7 CBC: WBC:7.60; Hgb: 15.0; Hct: 46.1; Plt: 299 Tchol: 183; Tri ; HDL: 53 ; LDL: 121 TSH: 2.89 ; FreeT4: 1.06 Microalbumin/creatinine Ratio: 5.2 03/28/2023 Hemoglobin A1c 6.4% 09/07/22 Hgb A1c: 6.4% Creat: 1.0; eGFR: 84 AST: 37; ALT: 46 K: 4.3 CBC: WBC:6.40; Hgb: 15.8; Hct: 45.3; Plt: 244 Tchol: 141; Tri ; HDL: 73 ; LDL: 60 TSH: 3.86 ; FreeT4: 1.08 Microalbumin/creatinine Ratio: 9.6 03/01/22 TSH: 2.58; FreeT4: 1.04 02/07/2022 Hemoglobin A1c 6.7% 11/02/20 Hgb A1c: 6.4% Creat: 0.96; eGFR: 89 A (more content not included)... [facility] 12-01-2024 History of Present illness Narrative Images from the original note were not included. Patient ID: Shane Zuñiga is a 54 y.o. male 1970 Subjective: Shane Zuñiga presents for follow up of Type 1 diabetes Diagnosed with DM Oct 08, 1977 He continues on a T slim insulin pump with a Dexcom CGM. This was downloaded and reviewed today. He does not utilize Control IQ, but does have basal IQ activated. He does not enter carb amounts, but consistently uses 1:15 ratio to calculate his own boluses. Hgb A1c: 6.4%. CGM, pump downloaded and reviewed. He was also started on levothyroxine 50mcg daily in the past for mild hypothyroidism. Diagnosed with sleep apnea, started on CPAP, which has helped. 12/13: Reports no major issues as of late, started a new job early October 2024, with increased physical exertion. Has been leading to some low blood sugars at work. Diagnostic CGM interpretation: CGM report unable to be reviewed due to connection issues. Allergies Allergen Reactions Animal Dander Hives and Shortness Of Breath Cashew Nut Anaphylaxis and Hives Throat closes [place]ner Shortness Of Breath and Itching Phenergan [Promethazine] GI Intolerance Rice Shortness Of Breath All grains Outpatient Medications Marked as Taking for the 12/01/24 encounter (Office Visit) with Nelida Blanco CNP: aspirin 81 MG EC tablet, Take 1 (one) tablet (81 mg total) by mouth daily . enalapril (VASOTEC) 20 MG tablet, Take 1 (one) tablet (20 mg total) by mouth daily . glucagon (Baqsimi) 3 mg/actuation [place], Administer 1 (one) spray into one nostril as needed (hypoglycemia) . insulin aspart U-100 (NovoLOG) 100 unit/mL injection, Use as directed with insulin pump, approx 60 units daily . magnesium 250 mg Tab, Take 1 (one) tablet (250 mg total) by mouth daily . multivit-minerals/FA/lycopene (ONE-A-DAY MEN'S ORAL), Take 1 tablet by mouth daily . omeprazole (PRILOSEC) 40 MG capsule, Take 1 (one) capsule (40 mg total) by mouth daily . subcutaneous insulin pump (t:slim X2 Insulin Pump) Misc, by Miscellaneous route continuous . Review of Systems: Review of Systems [...] Genitourinary: Negative for dysuria and frequency. Musculoskeletal: Positive for arthralgias (left shoulder and elbow. History of frozen shoulder.). Negative for gait problem and myalgias. Skin: Negative for rash and wound. Neurological: Negative for weakness, numbness and headaches. Psychiatric/Behavioral: Negative for sleep disturbance. The following portions of the patient's history were reviewed and updated as appropriate: allergies, current medications, past family history, past medical history, past social history, past surgical history and problem list. Objective: BP 126/74 Pulse 69 Wt 96.8 kg (213 lb 8 oz) BMI 29.78 kg/m Wt Readings from Last 3 Encounters: 12/01/24 96.8 kg (213 lb 8 oz) 05/26/24 96.1 kg (211 lb 12.8 oz) 11/26/23 95.5 kg (210 lb 8 oz) Physical Exam: General: alert, appears stated [...] and oriented x3 and RAUL Lab Review 11/28/24 *labs reviewed 12/01/24 Hgb A1c: 6.4% Creat: 1.08; eGFR: 76 AST: 43; ALT: 49 K: 4.0 CBC: WBC:7.40; Hgb: 14.4; Hct: 43.0; Plt: 268 Tchol: 182; Tri ; HDL: 51 ; LDL: 107 TSH: 4.160 ; FreeT4: 0.85 05/23/24 Hgb A1c: 6.1% Creat: 1.01; eGFR: 82 AST: 36; ALT: 36 K: 3.8 TSH: 3.86 ; FreeT4: 0.97 11/26/23 Hgb A1c: 6.4% Creat: 0.92; eGFR: 91 AST: 28; ALT: 32 K: 3.7 CBC: WBC:7.60; Hgb: 15.0; Hct: 46.1; Plt: 299 Tchol: 183; Tri ; HDL: 53 ; LDL: 121 TSH: 2.89 ; FreeT4: 1.06 Microalbumin/creatinine Ratio: 5.2 03/28/2023 Hemoglobin A1c 6.4% 09/07/22 Hgb A1c: [...] 121; Tri ; HDL: 52 ; LDL: 5 TSH: 4.11 ; FreeT4: 1.38 07/05/2020 Hemoglobin [...] A1C= Lab Results Component Value Date HGBA1C 6.1 05/23/2024 HGBA1C 6.4 11/26/2023 HGBA1C 6.4 (A) 03/28/2023 Weight trend: is stable Current diet: carbohydrate counting Current exercise: walking and active at work Current monitoring regimen: home blood tests - 8-10 times daily with Dexcom sensor times daily Home blood sugar records: CGM download NOTES: Retinopathy: Positive: Background diabetic retinopathy Exam within last 12 months: no 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 LFT's WNL. 12/12: Tchol: 183; Tri; HDL: 53 ; LDL: 121 PLAN: CPM. Recheck lipids. Hypertension: Negative . Currently taking: enalapril (Vasotec) BP: 126/74 Cardiac: Negative Experiencing chest pain No . Experiencing shortness of breath No History of No history of CAD Follows routinely with: Vascular: Negative History of None Feet: Follows with Podiatry: No Certified Meeting Professional: History of foot ulceration: No History of amputation: No Thyroid: Pt started on levothyroxine 50mcg daily TFT's WNL 12/13 Lab Results Component Value Date TSH 3.86 05/23/2024 Positive Hypothyroidism on levothyroxine 50 mcg/day. PLAN: Recheck TFTs. Other: Current pump settings: Basal rate: Standard 0000--0.600 units/h 0300--0.650 0600--0.650 1200--0.600 1400--0.450 2200--0.575 13.6 Insulin: Carbohydrate ratio: 15 Insulin sensitivity: 20 Plan: 1. Rx changes: none Continue auto basal function of new T-Slim pump with Dexcom sensor Patient warned regarding the risks associated with frequent hypoglycemia. Resume Control IQ Discussed using Activity mode with increased activity at work. Basal rate: Standard 0000--0.600 units/h 0300--0.650 0600--0.650 1200--0.600 1400--0.450 2330--0.575 Insulin: Carbohydrate ratio: 0000--15 Insulin sensitivity: 0000--20 Created new program: Hog program 0000--0.600 units/h 0600--0.450 1400--0.400 1700--0.450 Insulin: Carbohydrate ratio: 0000--15 0600--18 1700--15 Insulin sensitivity: 0000--20 0600--22 1700--20 Has noticed less yo-yo's with BG. 2. Education: Reviewed ABCs of diabetes management (respective goals in parentheses): A1C (7.0-8.0), blood pressure (<130/80), and cholesterol (LDL <100). 3. Compliance at present is estimated to be good. Efforts to improve compliance (if necessary) will be directed at dietary modifications: accurate carb counting and regular blood sugar monitorin-6 times daily. 4. Follow up: 6 months 5. Record blood sugar readings as instructed. Call if BG consistently <70 or >250. [phone] Patient has been checking blood glucoses 4 [...] up appointment. Orders Placed This Encounter Procedures Comprehensive Metabolic Panel Hemoglobin A1c TSH T4, Free Electronically Signed by: Nelida Blanco CNP 12/01/24 3:00 PM documented in this encounter [facility] 05-26-2024 History of Present illness Narrative Images from the original note were not included. Patient ID: Shane Zuñiga is a 54 y.o. male 1970 Subjective: Shane Zuñiga presents for follow up of Type 1 diabetes Diagnosed with DM Oct 08, 1978 He continues on a T slim insulin pump with a Dexcom CGM. This was downloaded and reviewed today. He does not utilize Control IQ, but does have basal IQ activated. He does not enter carb amounts, but consistently uses 1:15 ratio to calculate his own boluses. Hgb A1c: 6.1%. CGM, pump downloaded and reviewed. He was also started on levothyroxine 50mcg daily in the past for mild hypothyroidism. Diagnosed with sleep apnea, started on CPAP, which has helped. Diagnostic CGM interpretation: CGM report attached reviewed from dates 05/13/24-05/26/24 Glucoses mostly well controlled time in range 79%. He does have about a 11.6% hypoglycemia burden from 6 PM-6 AM. He utilizes temporary basal at times if responsibility at work requires more physical activity. Allergies Allergen Reactions Animal Dander Hives and Shortness Of Breath Cashew Nut Anaphylaxis and Hives Throat closes [place] Shortness Of Breath and Itching Phenergan [Promethazine] GI Intolerance Rice Shortness Of Breath All grains Outpatient Medications Marked as Taking for the 05/26/24 encounter (Office Visit) with Nelida Blanco CNP: aspirin 81 MG EC tablet, Take 1 (one) tablet (81 mg total) by mouth daily . atorvastatin (LIPITOR) 20 MG tablet, Take 1 (one) tablet (20 mg total) by mouth daily . DULoxetine (CYMBALTA) 60 MG capsule, Take 1 (one) capsule (60 mg total) by mouth daily . enalapril (VASOTEC) 20 MG tablet, Take 1 (one) tablet (20 mg total) by mouth daily . glucagon (Baqsimi) 3 mg/actuation [place], Administer 1 (one) spray into one nostril as needed (hypoglycemia) . insulin aspart U-100 (NovoLOG) 100 unit/mL injection, Use as directed with insulin pump, approx 60 units daily . levothyroxine (SYNTHROID, LEVOTHROID) 50 MCG tablet, Take 1 (one) tablet (50 mcg total) by mouth daily . multivit-minerals/FA/lycopene (ONE-A-DAY MEN'S ORAL), Take 1 tablet by mouth daily . omeprazole (PRILOSEC) 40 MG capsule, Take 1 (one) capsule (40 mg total) by mouth daily . triamcinolone [...] Genitourinary: Negative for dysuria and frequency. Musculoskeletal: Positive for arthralgias (left shoulder and elbow. History of frozen shoulder.). Negative for gait problem and myalgias. Skin: Negative for rash and wound. Neurological: Negative for weakness, numbness and headaches. Psychiatric/Behavioral: Negative for sleep disturbance. The following portions of the patient's history were reviewed and updated as appropriate: allergies, current medications, past family history, past medical history, past social history, past surgical history and problem list. Objective: BP 137/87 Pulse 60 Wt 96.1 kg (211 lb 12.8 oz) BMI 29.54 kg/m Wt Readings from Last 3 Encounters: 05/26/24 96.1 kg (211 lb 12.8 oz) 11/26/23 95.5 kg (210 lb 8 oz) 03/28/23 92.4 kg (203 lb 11.2 oz) Physical Exam: General: alert, appears stated [...] and oriented x3 and RAUL Lab Review 05/23/24 *labs reviewed 05/26/24 Hgb A1c: 6.1% Creat: 1.01; eGFR: 82 AST: 36; ALT: 36 K: 3.8 TSH: 3.86 ; FreeT4: 0.97 11/26/23 Hgb A1c: 6.4% Creat: 0.92; eGFR: 91 AST: 28; ALT: 32 K: 3.7 CBC: WBC:7.60; Hgb: 15.0; Hct: 46.1; Plt: 299 Tchol: 183; Tri ; HDL: 53 ; LDL: 121 TSH: 2.89 ; FreeT4: 1.06 Microalbumin/creatinine Ratio: 5.2 03/28/2023 Hemoglobin A1c 6.4% 09/07/22 Hgb A1c: [...] Lab Results Component Value Date HGBA1C 6.4 11/26/2023 HGBA1C 6.4 (A) 03/28/2023 HGBA1C 6.4 09/07/2022 Weight trend: is stable Current diet: carbohydrate counting Current exercise: walking and active at work Current monitoring regimen: home blood tests - 8-10 times daily with Dexcom sensor times daily Home blood sugar records: CGM download Any episodes of hypoglycemia? Yes -- 9-11% hypoglycemia burden from 6pm-6am, at times during work shift. 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 LFT's WNL. 12/12: Tchol: 183; Tri; HDL: 53 ; LDL: 121 PLAN: CPM. Recheck lipids. Hypertension: Negative . Currently taking: enalapril (Vasotec) BP: 137/87 Cardiac: Negative Experiencing chest pain No . Experiencing shortness of breath No History of No history of CAD Follows routinely with: Vascular: Negative History of None Feet: Follows with Podiatry: No Certified Meeting Professional: History of foot ulceration: No History of amputation: No Thyroid: Pt started on levothyroxine 50mcg daily TFT's WNL 11/26/23: TSH: 3.86 ; FreeT4: 0.97 Lab Results Component Value Date TSH 2.89 11/26/2023 Positive Hypothyroidism on levothyroxine 50 mcg/day. PLAN: Recheck TFTs. Other: Current pump settings: Basal rate: Standard 0000--0.600 units/h 0300--0.650 0600--0.650 1200--0.600 1400--0.450 2330--0.575 Insulin: Carbohydrate ratio: 15 Insulin sensitivity: 20 Plan: 1. Rx changes: none Continue auto basal function of new T-Slim pump with Dexcom sensor Patient warned regarding the risks associated with frequent hypoglycemia. Basal rate: Standard 0000--0.600 units/h 0300--0.650 0600--0.650 1200--0.600 1400--0.450 2330--0.575 Insulin: Carbohydrate ratio: 0000--15 Insulin sensitivity: 0000--20 Encouraged more frequent follow up overall. He needs full blood work panel updated. Regarding BG control he continues to overall maintain goal range glucoses. Basal rates continued as above based on CGM download. He is doing better with bolus IQ. Has noticed less yo-yo's with BG. Intranasal glucagon reordered 2. Education: Reviewed ABCs of diabetes management (respective goals in parentheses): A1C (7.0-8.0), blood pressure (<130/80), and cholesterol (LDL <100). 3. Compliance at present is estimated to be good. Efforts to improve compliance (if necessary) will be directed at dietary modifications: accurate carb counting and regular blood sugar monitorin-6 times daily. 4. Follow up: 6 months 5. Record blood sugar readings as instructed. Call if BG consistently <70 or >250. [phone] Patient has been checking blood glucoses 4 [...] Encounter Procedures Hemoglobin A1c Comprehensive Metabolic Panel TSH T4, Free Lipid Panel CBC and Differential Microalbumin/Creatinine Ratio, UR Random Electronically Signed by: Nelida Blanco CNP 05/26/24 3:00 PM documented in this encounter [facility] 11-26-2023 History of Present illness Narrative Images from the original note were not included. Patient ID: Shane Zuñiga is a 53 y.o. male 1970 Subjective: Shane Zuñiga presents for follow up of Type 1 diabetes Diagnosed with DM Oct 08, 1978 He continues on a T slim insulin pump with a Dexcom CGM. This was downloaded and reviewed tdoay. He does not utilize Control IQ, but does have basal IQ activated. He does not enter carb amounts, but consistently uses 1:15 ratio to calculate his own boluses. 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 He did not have his labs updated. HgbA1c obtained in office 6.4%. CGM, pump downloaded and reviewed. He was also started on levothyroxine 50mcg daily in the past for mild hypothyroidism. He did not have any follow up labs completed, but reports taking his dose daily. Diagnosed with sleep apnea, started on CPAP, which has helped. Diagnostic CGM interpretation: CGM report attached reviewed from dates 11/13/23-11/26/23 Glucoses mostly well controlled time in range 74-77%. He does have about a 6-8% hypoglycemia burden from 6 PM-6 AM. He utilizes temporary basal at times if responsibility at work requires more physical activity. Allergies Allergen Reactions Animal Dander Hives and Shortness Of Breath Cashew Nut Anaphylaxis and Hives Throat closes [place] Shortness Of Breath and Itching Phenergan [Promethazine] GI Intolerance Rice Shortness Of Breath All grains Outpatient Medications Marked as Taking for the 11/26/23 encounter (Office Visit) with Nelida Blanco CNP: aspirin 81 MG EC tablet, Take 1 (one) tablet (81 mg total) by mouth daily . DULoxetine (CYMBALTA) 60 MG capsule, Take 1 (one) capsule (60 mg total) by mouth daily . enalapril (VASOTEC) 20 MG tablet, Take 1 (one) tablet (20 mg total) by mouth daily . insulin aspart U-100 (NovoLOG) 100 unit/mL injection, Use as directed with insulin pump, approx 60 units daily . multivit-minerals/FA/lycopene (ONE-A-DAY MEN'S ORAL), Take 1 tablet by mouth daily . omeprazole (PRILOSEC) 40 MG capsule, Take 1 (one) capsule (40 mg total) by mouth daily . triamcinolone [...] surgical history and problem list. Objective: BP 132/83 Pulse 66 Wt 95.5 kg (210 lb 8 oz) BMI 29.36 kg/m Wt Readings from Last 3 Encounters: 11/26/23 95.5 kg (210 lb 8 oz) 03/28/23 92.4 kg (203 lb 11.2 oz) 09/11/22 93.4 kg (206 lb) Physical Exam: General: alert, appears stated [...] and oriented x3 and RAUL Lab Review 11/26/23 *labs reviewed 11/26/23 Hgb A1c: 6.4% Creat: 0.92; eGFR: 91 AST: 28; ALT: 32 K: 3.7 CBC: WBC:7.60; Hgb: 15.0; Hct: 46.1; Plt: 299 Tchol: 183; Tri ; HDL: 53 ; LDL: 121 TSH: 2.89 ; FreeT4: 1.06 Microalbumin/creatinine Ratio: 5.2 03/28/2023 Hemoglobin A1c 6.4% 09/07/22 Hgb A1c: [...] retinopathy Exam within last 12 months: no 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 Currently taking: enalapril (Vasotec) BP: 132/83 Cardiac: Negative Experiencing chest pain No . Experiencing shortness of breath No History of No history of CAD Follows routinely with: Vascular: Negative History of None Feet: Follows with Podiatry: No Certified Meeting Professional: History of foot ulceration: No History of amputation: No Thyroid: Pt started on levothyroxine 50mcg daily TFT's WNL 11/26/23 Lab Results Component Value Date TSH 3.86 09/07/2022 Positive Hypothyroidism on levothyroxine 50 mcg/day. PLAN: Recheck TFTs. Other: Current pump settings: Basal rate: Standard 0000--0.600 units/h 0300--0.650 0600--0.850 1200--0.600 1400--0.450 2330--0.575 Insulin: Carbohydrate ratio: 15 Insulin sensitivity: 30 [...] Call if BG consistently <70 or >250. [phone] Patient has been checking blood glucoses 4 [...] up appointment. 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, FOR USE WITH NONDURABLE MEDICAL EQUIPMENT INTERSTITIAL CONTINUOUS GLUCOSE MONITORING SYSTEM (CGM) Electronically Signed by: Nelida Blanco CNP 11/26/23 3:00 PM documented in this encounter [facility] 03-28-2023 History of Present illness Narrative Images from the original note [...] Cashew Nut Anaphylaxis and Hives Throat closes [place] Shortness Of Breath and Itching Phenergan [Promethazine] [...] retinopathy Exam within last 12 months: no 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 [phone] Patient has been checking blood glucoses 4 [...] Differential Electronically signed by: Derrek Bender PA-C, [facility] 02/14/22 12:41 PM documented in this encounter [facility] 04-23-2017 Fall risk assessm [facility] Work Phone: [place] No Evaluation note Diagnosis Type 1 diabetes mellitus with diabetic autonomic neuropathy (HCC) [facility] Diagnosis Type 1 diabetes mellitus with diabetic autonomic neuropathy (HCC)- Primary [facility] Diagnosis Type 1 diabetes mellitus with diabetic autonomic neuropathy (HCC)- Primary [facility] noteNo assessment information availableWSt. [facility] Work Phone: evaluation note* Diagnosis Type 1 diabetes mellitus with diabetic autonomic neuropathy (HCC)- Primary [facility] Diagnosis Onset Date Resolution Status Adhesive capsulitis of left shoulder associated with type 1 diabetes mellitus acute Adhesive capsulitis of left shoulder associated with type 1 diabetes mellitus [facility] Work Phone: evaluation note* Diagnosis Type 1 diabetes mellitus with diabetic autonomic neuropathy (HCC) [facility] Diagnosis Type 1 diabetes mellitus with diabetic autonomic neuropathy (HCC)- Primary [facility] Diagnosis Type 1 diabetes mellitus with diabetic autonomic neuropathy (HCC)- Primary [facility] Diagnosis Type 1 diabetes mellitus with diabetic autonomic neuropathy (HCC)- Primary documented in this encounter [facility] note* Diagnosis Type 1 diabetes mellitus with diabetic autonomic neuropathy (HCC) documented in this encounter [facility] note* Diagnosis Type 1 diabetes mellitus with diabetic autonomic neuropathy (HCC)- Primary documented in this encounter [facility] note* Diagnosis Type 1 diabetes mellitus with diabetic autonomic neuropathy (HCC)- Primary documented in this encounter [facility] note* Diagnosis Type 1 diabetes mellitus with diabetic autonomic neuropathy (HCC) documented in this encounter [facility] note* Diagnosis Type 1 diabetes mellitus with diabetic autonomic neuropathy (HCC)- Primary Hypothyroidism, unspecified type documented in this encounter [facility] note* Diagnosis Bacterial sinusitis- Primary Unspecified sinusitis (chronic) [facility])No reason for referral information availableWSt. Vincent Hospital Work Phone: History of Present Illness * Hoa Hankins MD - 04/25/2019 1:21 PM EDT Patient ID: Shane Zuñiga is a 49 y.o. male 1970 Subjective: Shane Zuñiga presents for initial evaluation of Type 1 diabetes Patient has had diabetes for 40.5 years. Diagnosed in Oct 08, 1978 Patient has taken Insulin for 40.5 years Has been on Medtronic insulin pump for 10-12 years. He has been followed by KAMI España at [facility]. 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 [phone] Patient has been checking blood glucoses 4 [...] Jb SCHNEIDER documented in this encounter* Nelida Blanco CNP - 09/02/2019 9:09 AM EDT Patient ID: Shane Zuñiga is a 49 y.o. male 1970 Subjective: Shane Zuñiga presents for follow up of Type 1 diabetes Patient has had diabetes for 40.5 years. Diagnosed in Oct 08, 1978 Patient has taken Insulin for 40.5 years Has been on Medtronic insulin pump for 10-12 years. He had been followed by KAMI España at [facility]. 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 [phone] Patient has been checking blood glucoses 4 [...] Cashew Nut Anaphylaxis and Hives Throat closes [place] Shortness Of Breath and Itching Phenergan [Promethazine] [...] control IQ. In the last 3 weeks cjtigist noted more frequent lows over the last 3 weeks since he has not had a Dexcom transmitter. . Using Dexcom CGM with alerts for low blood sugars. NOTES: Patient now working standard work hours, no longer needing second basal rate settings. 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 [phone] Patient has been checking blood glucoses 4 [...] Cashew Nut Anaphylaxis and Hives Throat closes [place] Shortness Of Breath and Itching Phenergan [Promethazine] [...] control IQ. In the last 3 weeks hehas noted more frequent lows over the last 3 weeks since he has not had a Dexcom transmitter. . Using Dexcom CGM with alerts for low blood sugars. NOTES: Patient now working standard work hours, no longer needing second basal rate settings. 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 [phone] Patient has been checking blood glucoses 4 [...] diabetic autonomic neuropathy (HCC)- Primary Advance Directives Documents on File Type Date Recorded Patient Hoist Operator Expl anation Advance Directives and Living Will Advance Directive Response Recorded Date/ Time Living Will No April 29, 2020 6:15pm Power of Hand Shoe Cutter No April 29 0 6:15pm Documents on File Type Date Recorded Patient Hoist Operator Expl anation Advance Directives and Livin g Will 02/13/2022 2:55 PM Advance Directive Response Recorded Date/ Time Living Will No February 17, 2022 12:39am Power of Hand Shoe Cutter No February 17 12:39am Advance Directive Response Recorded Date/ Time Living Will No February 16, 2022 11:39pm Power of Hand Shoe Cutter No February 16 11:39pm Summary Purpose Family History No Family History Records FoundNo Family History Records FoundNo Family History Records Found Chief Complaint and Reason for Visit Chief Complaint N/V L SHOULDER PAIN.RX HERE Chief Complaint left shoulder xray LEFT SHOULDER L SHOULDER PAIN.RX HERE Reason for Visit Adhesive capsulitis of left shoulder associated with type 1 diabetes mellitus Adhesive capsulitis of left shoulder associated with type 1 diabetes mellitus Chief Complaint L SHOULDER PAIN.RX H ERE Chief Complaint CSA Additional Source Comments Reason for Visit (unrecogniz ed section and content) Reason Comments Diabetes Mellitus Status Reason Specialty Diagnoses / Procedures Referred By Contact Referred To Contact Closed Specialty Services Required/Patient 's Best Interest Endocrinology Diagnoses Poor control type I diabetes mellitus (HCC) Yessi Cuevas MD [address] [facility] [address] [place] [address] Hoa Hankins MD [address] [place] [id number] Reason Comments Diabetes Mellitus Thyroid Problem Reason Comments Medication Refill Reason Comments Diabetes Mellitus Gap Closure (Health Maintenance) Ophthal mology Exam Never [id number] due on 03/08/2023 Reason Comments Diabetes Mellitus Gap Closure (Health Maintenance) Diabeti c Eye Exam Never [id number] due on 09/28/2023 Reason Onset Date Comments Medication Refill 04/08/2024 Reason Comments Diabetes Mellitus Diabetic Eye Exam Ne peggy [id number] due on 05/26/2024 Reason Comments Diabetes Mellitus Diabetic Eye Exam Ne peggy [id number] due on 11/23/2024 Reason Comments Diabetes Mellitus Diabetic Eye Exam Ne peggy done Reason Comments Pain, Sinus Sinus pain and press ure, congestion, drainage, fatigue and ST x 3 days (unrecognized sect ion and content) No Status Records FoundNo Status Records FoundNo Status Records Found INFORMATION SOURCE (unrecogn ized section and content) DATE CREATED AUTHOR 08/07/2021 [facility] DATE CREATED AUTHOR AUTHOR'S ORGANIZ ATION 06/02/2025 [facility] DATE CREATED AUTHOR AUTHOR'S ORGANIZ ATION 07/05/2025 [facility] Care Teams (unrecognized sec tion and content) Rat Exterminator Relationship Specialty Start Date End Date Yessi Cuevas MD [address] [place] [address] PCP - General Family Medicine 02/12/19 Rat Exterminator Relationship Specialty Start Date End Date Yessi Cuevas MD [address] [place] [address] PCP - General Family Medicine 02/12/19 Rat Exterminator Relationship Specialty Start Date End Date Yessi Cuevas MD [address] [place] [address] PCP - General Family Medicine 02/12/19 Rat Exterminator Relationship Specialty Start Date End Date Yessi Cuevas MD [address] [place] [address] PCP - General Family Medicine 02/12/19 Rat Exterminator Relationship Specialty Start Date End Date Yessi Cuevas MD [address] [place] [address] PCP - General Family Medicine 02/12/19 Team Status: Active Member Role Status Dates Dr. Yessi Cuevas MD Family Provider Active Dr. Yessi Cuevas MD Primary Care Provider Active Team Status: Inactive Member Role Status Dates Dr. Yessi Cuevas MD Primary Care Prov ider, Attending Provider, Referring Provider Active Rat Exterminator Relationship Specialty Start Date End Date Yessi Cuevas MD [address] [place] [address] PCP - General Family Medicine 02/12/19 Team Status: Active Member Role Status Dates Dr. Yessi Cuevas MD Primary Care Provider Active Dr. Shaheen Tsai MD Attending Provider Active Team Status: Inactive Member Role Status Dates Dr. Yessi Cuevas MD Primary Care Provider Active Dr. Derrick Latham MD Attending Provider, [facility] Active Dr. Hoa Hankins MD Other Provider Active Rat Exterminator Relationship Specialty Start Date End Date Yessi Cuevas MD [address] [place] [address] PCP - General Family Medicine 02/12/19 Rat Exterminator Relationship Specialty Start Date End Date Yessi Cuevas MD [address] [place] [address] PCP - General Family Medicine 02/12/19 Rat Exterminator Relationship Specialty Start Date End Date Yessi Cuevas MD [address] [place] [address] PCP - General Family Medicine 02/12/19 Team Status: Inactive Member Role Status Dates Dr. Yessi Cuevas MD Primary Care Provider Active SHELBY LEW Attending Provider, Referring Provid er Active Rat Exterminator Relationship Specialty Start Date End Date Yessi Cuevas MD [address] [place] [address] PCP - General Family Medicine 02/12/19 Rat Exterminator Relationship Specialty Start Date End Date Yessi Cuevas MD [address] [place] [address] PCP - General Family Medicine 02/12/19 Rat Exterminator Relationship Specialty Start Date End Date Yessi Cuevas MD [address] [facility] [address] [place], [place] [address] PCP - General Family Medicine 02/12/19 Rat Exterminator Relationship Specialty Start Date End Date Yessi Cuevas MD [address] [facility] [address] [place], [place] [id number] PCP - [facility] Family Medicine 02/12/19 Team Status: Active Member Role/Relationship Status Dates Dr. Yessi Cuevas MD Family Provider Active Dr. Yessi Cuevas MD Primary Care Provider Active Team Status: Inactive Member Role/Relationship Status Dates Dr. Yessi Cuevas MD Primary Care Provider Active Start: May 28, 2025 End: May 28, 2025 MARVA Lyn Attending Provider Active Start: May 28, 2025 End: May 28, 2025 MARVA Lyn Referring Provider Active Start: May 28, 2025 End: May 28, 2025 Team Status: Active Member Role/Relationship Status Dates Dr. Yessi Cuevas MD Family Provider Active Dr. Bradford Finn MD Primary Care Provider Active Team Status: Inactive Member Role/Relationship Status Dates Dr. Bradford Finn MD Primary Care Provider Active Start: June 24, 2025 End: June 24, 2025 Dr. Bradford Finn MD Attending Provider Active Start: June 24, 2025 End: June 24, 2025 Dr. Bradford Finn MD Referring Provider Active Start: June 24, 2025 End: June 24, 2025 Rat Exterminator Relationship Specialty Start Date End Date Yessi Cuevas [address] [facility] [address] [place], [place] [address] PCP - General 02/17/04 Goals (unrecognized section and content) Goals may be documented in a n alternate sectionGoals may be documented in an alternate sectionGoals may be documented in an alternate sectionGoals may be documented in an alternate sectionGoals may be documented in an alternate sectionGoals may be documented in an alternate sectionGoals may be documented in an alternate sectionGoals may be documented in an alternate section Source Comments (unrecognize d section and content) In the event this informatio n is protected by the Federal Confidentiality of Alcohol and Drug Abuse Patient Records regulations: The Federal rules restrict any use of the information to criminally investigate or prosecute any alcohol or drug abuse patient.[facility] FOR RECORDS PERTAINING TO PATIENTS WHO ARE [...] BE BASED ON THE PRIMARY CLINICAL RECORDS. [facility]. provides no warranty or guarantee of the accuracy or completeness of information in this document.
[2025-07-31 10:42] LABS: Anion Gap 11 (5-15); BUN 17 mg/dL (4-19); BUN/Creat Ratio 17.0 RATIO (10-20); Calcium,Total 9.9 mg/dL (7.6-11.0); Carbon Dioxide 27.4 mmol/L (21.0-32.0); Chloride 104 mmol/L (98-108); Cholesterol 190 mg/dL (<=200); Glucose 59 mg/dL (70-99); Low Density Lipoprotein Calc. 132 mg/dL; Potassium 4.3 mmol/L (3.3-5.1); Triglycerides 49 mg/dL; Very Low Density Lipoprotein 10 mg/dL (5-40); cholesterol:hdl ratio screen 3.94
[2025-07-31 11:46] LABS: Creatinine, Urine (random) 198.00 mg/dL (39.00-259.00); Microalbumin,Random Urine 31.9 mg/L (<20 mg/L)
== END | disposition home or self-care (01) ==
LOC: MTLAB 07:19
PROVIDERS: PCP Family Medicine; Referring Provider Family Medicine; Visit Provider Family Medicine
DX: Z00.00 Encounter for general adult medical examination without abnormal findings (principal)
CPT/HCPCS: 36415; 80048; 80061; 82043; 82570

== ENCOUNTER 2025-08-24 11:39 | Emergency (ER) | payer OTHER, SELFPAY ==
[2025-08-24 11:41] VITALS: BP 131/81; PULSE 69; RESP 16; TEMP 36.8; O2SAT 100; BMI 30.1
--- NOTE | 2025-08-24 12:31 | EDS_ITS ---
HPI History of Present Illness Chief Complaint: Hypoglycemia Narrative Narrative: 55-year-old male past medical history of diabetes since 1977, has an insulin pump, follows up with endocrinology presents with hypoglycemic episode. He states he can get them frequently. He usually runs low at times. He is very active at his job, and states that he burned his glucose quite quickly given the active nature of his occupation. He did eat breakfast this morning. He felt a dip in his blood sugar which was low and thought he would rebound. However, he became extremely lightheaded. They checked his blood sugar and it was 46. He denies any syncope. He states he was able to eat a sandwich, and feels improved. However, he wanted to make sure that his blood sugar rebounded and he wanted someone present so he agreed to come to the emergency department and be observed. He denies any recent fevers or chills, no nausea or vomiting, no other symptoms. [facility] Medical History Adhesive capsulitis of left shoulder associated with type 1 diabetes mellitus Home Medications ?Medication ?Instructions ?Recorded ?Last Taken ?Type epinephrine 0.3 mg/0.3 mL 0.3 mg (0.3 mL) IM X1 #2 syr inges 08/26/15 Unknown Rx injection, auto-injector flash glucose scanning reader #1 ea 12/10/17 Unknown R x (FreeStyle Bella 10 Day [place]) flash glucose sensor (FreeStyle #3 ea 12/10/17 Unknown Rx Bella 10 Day Sensor kit) insulin aspart U-100 100 unit/mL See Rx Instructions s ubcut DAILY 01/29/20 Unknown History subcutaneous solution duloxetine 60 mg capsule,delayed 60 mg PO DAILY Unknown History release aspirin 81 mg capsule 81 mg PO DAILY 02/17/22 Unkn own History atorvastatin 20 mg tablet 20 mg PO QHS 02/17/22 Unknow n History dicyclomine 20 mg tablet 20 mg PO 4X/DAY PRN PRN Abdo gomez 02/17/22 Unknown Rx pain/spasm #28 tabs ondansetron 4 mg disintegrating 4 mg PO TID PRN nausea and 02/17/22 Unknown Rx tablet vomiting #21 tabs theophylline 300 mg 300 mg PO DAILY 02/17/22 Unk nown History capsule,extended release 24 hr (Christiano-24) Allergy/AdvReac Type Severity Reaction Status Date / Time nut - unspecified (nut) Allergy Anaphylaxis Verified 08/24/25 11:41 promethazine HCl (From AdvReac Other Verified 08/24/25 11:41 Phenergan) Family History no significant family his Social History Smoking Status: Never smoker alcohol intake: current alcohol intake frequency: a few times a month ROS ROS ED ROS Narrative Review of systems positive for lightheadedness and dizziness with low blood sugar. No recent fevers or chills, no nausea or vomiting, no exacerbating or alleviating factors. EXAM Physical Exam Narrative Exam Narrative: Afebrile. Vital signs noted. Nontoxic-appearing. Cardiovascular examination reveals regular rate and rhythm. Lungs are clear to auscultation bilaterally. Abdomen is soft and nontender without guarding or rebound. Positive bowel sounds. Neurological examination is nonfocal, nonlateralizing. Awake, alert, oriented, interactive, appropriate. Const Vital Signs: 08/24/25 11:41 08/24/25 11:44 Temperature 98.2 F Temperature Source Oral Pulse Rate 69 Respiratory Rate 16 Respiratory Effort Normal Non-Labored Respiratory Pattern Normal Blood Pressure 131/81 H Blood Pressure Mean 97 Pulse Ox 100 Oxygen Delivery Method Room Air MDM MDM MDM Narrative Medical decision making narrative: I do not really feel differential diagnosis is applicable. I do not feel he needs laboratory work/blood work or imaging. His pcwjc-ko-ccou glucose was checked and was elevated at 212. He would like to be observed in the emergency department for approximately an hour then rechecked. He notes that he had a hypoglycemic episode related to his insulin pump and low blood sugar. Lab Data Labs: Laboratory Results - last 24 hr 08/24/25 12:04 POC Glucose 212 H Discharge Plan Triage Chief Complaint: Hypoglycemia ED Provider: Chase Wu Dx/Rx/DC Orders Prescriptions: No Action insulin aspart U-100 100 unit/mL solution See Rx Instructions SC DAILY Patient Comments: INJECT 45-50 UNITS DAILY Rx Instructions: subcut daily on insulin pump. novolog epinephrine 0.3 MG syringe 0.3 mg IM X1 Qty: 2 0RF duloxetine 60 MG capsule 60 mg PO DAILY atorvastatin 20 mg tablet 20 mg PO QHS Christiano-24 300 mg capsule,extended release 24hr 300 mg PO DAILY Patient Comments: TAKE 1 CAPSULE BY MOUTH ONCE DAILY aspirin 81 mg Capsule 81 mg PO DAILY ondansetron 4 mg tablet,disintegrating 4 mg PO TID PRN (Reason: nausea and vomiting) Qty: 21 0RF dicyclomine 20 mg tablet 20 mg PO 4X/DAY PRN PRN (Reason: Abdominal pain/spasm) Qty: 28 0RF (DME) flash glucose sensor [FreeStyle Bella 10 Day Sensor] kit See Dose Instructions .ROUTE .MEDSUPPLY Qty: 3 11RF Dose Instruction: As directed Rx Instructions: As directed (DME) flash glucose scanning reader [FreeStyle Bella 10 Day [place]] misc See Dose Instructions .ROUTE .MEDSUPPLY Qty: 1 0RF Dose Instruction: As directed Rx Instructions: As directed Primary Care Provider: Bradford Finn Referrals: Bradford Finn MD [Primary Care Provider, Family Practice] Print Language: Maldivian
--- NOTE | 2025-08-24 12:31 | EX.ED.DYSGE1 ---
HPI History of Present Illness Chief Complaint: Hypoglycemia Narrative Narrative: 55-year-old male past medical history of diabetes since 1977, has an insulin pump, follows up with endocrinology presents with hypoglycemic episode. He states he can get them frequently. He usually runs low at times. He is very active at his job, and states that he burned his glucose quite quickly given the active nature of his occupation. He did eat breakfast this morning. He felt a dip in his blood sugar which was low and thought he would rebound. However, he became extremely lightheaded. They checked his blood sugar and it was 46. He denies any syncope. He states he was able to eat a sandwich, and feels improved. However, he wanted to make sure that his blood sugar rebounded and he wanted someone present so he agreed to come to the emergency department and be observed. He denies any recent fevers or chills, no nausea or vomiting, no other symptoms. [facility] Medical History Adhesive capsulitis of left shoulder associated with type 1 diabetes mellitus Home Medications ?Medication ?Instructions ?Recorded ?Last Taken ?Type epinephrine 0.3 mg/0.3 mL 0.3 mg (0.3 mL) IM X1 #2 syringes 08/26/15 Unknown Rx injection, auto-injector flash glucose scanning reader #1 ea 12/10/17 Unknown Rx (FreeStyle Bella 10 Day [place]) flash glucose sensor (FreeStyle #3 ea 12/10/17 Unknown Rx Bella 10 Day Sensor kit) insulin aspart U-100 100 unit/mL See Rx Instructions subcut DAILY 01/29/20 08/24/25 History subcutaneous solution duloxetine 60 mg capsule,delayed 60 mg PO DAILY 04/29/20 08/24/25 History release aspirin 81 mg capsule 81 mg PO DAILY 02/17/22 08/24/25 History atorvastatin 20 mg tablet 20 mg PO QHS 02/17/22 08/23/25 History fluticasone propionate 50 1 spray intranasal DAILY PRN 08/24/25 Unknown History mcg/actuation nasal allergy symptoms spray,suspension (24 Hour Allergy Relief) levothyroxine 50 mcg tablet 50 mcg PO DAILY 08/24/25 08/23/25 History (Synthroid) Allergy/AdvReac Type Severity Reaction Status Date / Time nut - unspecified (nut) Allergy Anaphylaxis Verified 08/24/25 11:41 promethazine HCl (From AdvReac Other Verified 08/24/25 11:41 Phenergan) Family History no significant family his Social History Smoking Status: Never smoker alcohol intake: current alcohol intake frequency: a few times a month ROS ROS ED ROS Narrative Review of systems positive for lightheadedness and dizziness with low blood sugar. No recent fevers or chills, no nausea or vomiting, no exacerbating or alleviating factors. EXAM Physical Exam Narrative Exam Narrative: Afebrile. Vital signs noted. Nontoxic-appearing. Cardiovascular examination reveals regular rate and rhythm. Lungs are clear to auscultation bilaterally. Abdomen is soft and nontender without guarding or rebound. Positive bowel sounds. Neurological examination is nonfocal, nonlateralizing. Awake, alert, oriented, interactive, appropriate. Const Vital Signs: 08/24/25 11:41 08/24/25 11:44 08/24/25 13:40 Temperature 98.2 F Temperature Source Oral Pulse Rate 69 56 L Respiratory Rate 16 15 Respiratory Effort Normal Non-Labored Respiratory Pattern Normal Blood Pressure 131/81 H 126/87 H Blood Pressure Mean 97 100 Pulse Ox 100 99 Oxygen Delivery Method Room Air Room Air MDM MDM MDM Narrative Medical decision making narrative: I do not really feel differential diagnosis is applicable. I do not feel he needs laboratory work/blood work or imaging. His alsxu-dk-ulhx glucose was checked and was elevated at 212. He would like to be observed in the emergency department for approximately an hour then rechecked. He notes that he had a hypoglycemic episode related to his insulin pump and low blood sugar. Initial smdsq-co-zsnd glucose was elevated at 212 as stated previously. After an hour of observation, repeat is 193 according to RN. He is comfortable being discharged at this time. He will follow-up with his client support professional. He was told to eat appropriately for his level of activity. Return instructions to the emergency department were reviewed. Disposition is discharged home in stable condition. History & Record Review Discussion w/independent historian: Patient Additional record(s) reviewed:: Prior ED visit (Last seen in 2021 for hypoglycemia) Lab Data Attestation: I reviewed the patient's lab results. Labs: Laboratory Results - last 24 hr 08/24/25 12:04 POC Glucose 212 H Discharge Plan Triage Chief Complaint: Hypoglycemia ED Provider: Chase Wu Dx/Rx/DC Orders Clinical Impression: Type 1 diabetes mellitus, Insulin reaction, Hypoglycemia associated with diabetes Instructions: ED Diabetic Insulin Reaction Prescriptions: No Action insulin aspart U-100 100 unit/mL solution See Rx Instructions SC DAILY Patient Comments: INJECT 45-50 UNITS DAILY Rx Instructions: subcut daily on insulin pump. novolog epinephrine 0.3 MG syringe 0.3 mg IM X1 Qty: 2 0RF duloxetine 60 MG capsule 60 mg PO DAILY atorvastatin 20 mg tablet 20 mg PO QHS aspirin 81 mg Capsule 81 mg PO DAILY levothyroxine [Synthroid] 50 mcg tablet 50 mcg PO DAILY fluticasone propionate [24 Hour Allergy Relief] 50 mcg/actuation spray,suspension 1 spray intranasal DAILY PRN (Reason: allergy symptoms) Rx Instructions: administer into each nostril (DME) flash glucose sensor [FreeStyle Bella 10 Day Sensor] kit See Dose Instructions .ROUTE .MEDSUPPLY Qty: 3 11RF Dose Instruction: As directed Rx Instructions: As directed (DME) flash glucose scanning reader [FreeStyle Bella 10 Day [place]] misc See Dose Instructions .ROUTE .MEDSUPPLY Qty: 1 0RF Dose Instruction: As directed Rx Instructions: As directed Primary Care Provider: Bradford Finn Referrals: Bradford Finn MD [Primary Care Provider, Family Practice] Activity Restrictions/Additional Instructions: Follow-up with your client support professional. Make sure you are eating appropriately for your activity level. Return with sustained low blood sugar, new or worsening symptoms. Print Language: Paraguayan Disposition Disposition: Home, Self Care
[2025-08-24 13:40] VITALS: BP 126/87; PULSE 56; RESP 15; O2SAT 99
[2025-08-24 13:53] VITALS: BP 123/80; PULSE 58; RESP 16; TEMP 36.8; O2SAT 99
== END 2025-08-24 13:55 | disposition home or self-care (01) ==
PROVIDERS: Emergency Provider Emergency Medicine; PCP Family Medicine; Visit Provider Emergency Medicine
DX: E10.649 Type 1 diabetes mellitus with hypoglycemia without coma (principal); Z79.4 Long term (current) use of insulin; Z96.41 Presence of insulin pump (external) (internal); T38.3X5A Adverse effect of insulin and oral hypoglycemic [antidiabetic] drugs, initial encounter
CPT/HCPCS: 82962; 99284